=== PATIENT | male | born 1935 | race Caucasian/White ===

== ENCOUNTER → 2018-01-06 | Outpatient (CLI) | payer MEDICARE, BC | END | disposition home or self-care (01) | LOC: LABWHC1 11:06 | PROVIDERS: ATTEND Urology | DX: C61 Malignant neoplasm of prostate (principal); R97.20 Elevated prostate specific antigen [PSA] | CPT/HCPCS: 36415; 84153 ==

== ENCOUNTER → 2018-02-28 | Outpatient (CLI) | payer MEDICARE, BC ==
[2018-02-28 10:22] LABS: Blood Urea Nitrogen 14 mg/dL (9-20)
--- NOTE | 2018-02-28 13:26 | CT ---
EXAMINATION TYPE: CT pelvis w con DATE OF EXAM: 02/28/2018 COMPARISON: None HISTORY: Elevated PSA. CT DLP: 865.6 mGycm Automated exposure control for dose reduction was used. CONTRAST: Performed with IV Contrast, patient injected with 100 mL of Isovue M300. FINDINGS: Prostate gland is heterogenous containing central zone calcifications. Prostate gland is prominent bu t nonenlarged in transverse dimension measuring 4.0 cm (upper limits of normal). No suspicious areas of hyperemia are seen within the prostate gland although there is severe limitation for evaluation of prostate cancer on CT. Seminal vesicles appear symmetric and unremarkable. No abnormal pelvic adenop athy is appreciated. Centrally fat containing epiploic appendage versus prominent lymph node is seen adjacent to the distal right ureter on series 3 image 36. There is moderate to severe right-sided hyd roureteronephrosis with no radiopaque obstructing calculus. There is also right perinephric fat stran ding partially visualized. No surrounding focal circumscribed fluid collection to suggest abscess. No left-sided hydronephrosis. There is a very small periumbilical fat filled hernia. Extensive atherosclerosis is seen of the abdom inal aorta and its branches. There is infrarenal ectasia of the abdominal aorta without aneurysmal di latation. Aorta measures up to 2.4 x 2.3 cm. There is a moderate amount retained colonic stool, somewhat limiting evaluation of the bowel. Appendi x is within normal limits. Surgical clips are seen within the right inguinal canal. Small bowel abuts the prior surgically fixated right inguinal hernial defect. Colonic diverticulosis is noted. Few sca ttered nonenlarged periaortic lymph nodes are seen. There is somewhat mottled trabecular pattern of the right iliac bone with sclerosis focally on series 7 image 42 measuring 1.8 cm. Mottled appearance extends through the entirety of the right iliac bone such as on series 7 image 45. Mild multilevel degenerative changes of the lumbar spine are present. IMPRESSION: 1. HETEROGENEITY OF THE UPPER LIMITS OF NORMAL SIZED PROSTATE GLAND WITH NO FOCAL AREA OF HYPEREMIA T O RAISE SUSPICION FOR PROSTATE CARCINOMA ALTHOUGH THERE IS INCREASED SENSITIVITY WITH MRI AND IF BIOP SY IS NOT PLANNED MRI WOULD BE RECOMMENDED. NO LOCAL PELVIC ADENOPATHY OR ABNORMAL ATTENUATION OF THE SEMINAL VESICLES. THERE IS DIFFUSE ABNORMAL BONE MARROW THROUGHOUT THE RIGHT HEMIPELVIS ALTHOUGH THE RE IS LOW INDEX OF SUSPICION FOR METASTASIS FINDINGS SHOULD BE CORRELATED WITH NUCLEAR MEDICINE SCINT IGRAPHY. 2. MODERATE TO SEVERE RIGHT-SIDED HYDROURETERONEPHROSIS WITH RIGHT-SIDED PERINEPHRIC FAT STRANDING AN D NO OBSTRUCTING CALCULUS. CONSIDERATION IS FOR UNILATERAL URETEROVESICULAR REFLUX OR NONRADIOPAQUE O BSTRUCTING CALCULUS. URETER IS DILATED TO THE URETEROVESICULAR JUNCTION WITH NO STRICTURE IDENTIFIED.
--- NOTE | 2018-02-28 14:13 | NM ---
EXAMINATION TYPE: NM bone scan whole body DATE OF EXAM: 02/28/2018 COMPARISON: CT pelvis same date HISTORY: Prostate cancer Delayed whole-body scanning was performed following the injection of 24.0 mCi Tc 99m MDP. Images acq uired 3 hours post injection. FINDINGS: Mild increased uptake to the right hemipelvis as compared to the left is noted, there is associated c oarsened trabecular pattern on CT involving the ilium and ischium. Small focus of uptake is thought t o correspond to the sclerotic focus in the right pelvis is noted on CT. Uptake within the spine at th e costovertebral angles of multiple ribs in the midthoracic spine as well as the lower lumbar spine, shoulders is felt likely to be degenerative. Patient shows hydronephrosis on the right with hydrouret er, retained radio pharmaceutical. Uptake within the wrists and knees, feet is likely degenerative. P unctate focus of uptake seen in the posterior left hemipelvis may be due to some focal sclerosis at t he sacroiliac joint but is indeterminate. Large amount of retained urine present in the bladder. IMPRESSION: Findings in the right hemipelvis could be indicative of Paget's disease. Cannot exclude metastasis on the basis of this exam as described however. Right-sided hydronephrosis. There is urinary retention likely due to chronic outlet obstruction bladder.
== END | disposition home or self-care (01) ==
LOC: RADNMMAIN 09:32
PROVIDERS: ATTEND Urology
DX: C61 Malignant neoplasm of prostate (principal); N13.30 Unspecified hydronephrosis; N28.82 Megaloureter
CPT/HCPCS: 82565; 84520; 72193; 78306; 36415; A9503; Q9967

== ENCOUNTER → 2018-03-14 | Outpatient (CLI) | payer MEDICARE, BC ==
--- NOTE | 2018-03-14 16:05 | US ---
EXAMINATION TYPE: US kidneys/renal and bladder DATE OF EXAM: 03/14/2018 COMPARISON: CT CLINICAL HISTORY: Hydronephrosis R93.4. H/O [place] right side, recently diagnosed with prostate CA EXAM MEASUREMENTS: Right Kidney: 11.4 x 5.1 x 5.4 cm Left Kidney: 12.4 x 6.2 x 5.4 cm Right Kidney: No evidence of hydro, trace 2 mm greatest thickness perinephric fluid seen adjacent to kidney lower pole Left Kidney: Appeared wnl Bladder: Pt has a cath in place, anterior wall thickened There is no evidence for hydronephrosis at this point in time. No nephrolithiasis is seen. No russell s are identified. The urinary bladder is anechoic. Bilateral ureteral jets are seen. IMPRESSION: 1. No evidence of hydronephrosis of either kidney. There is a trace amount of perinephric fluid seen on the right measuring 2 mm in greatest thickness. 3. Anterior urinary bladder wall thickening, partially related to incomplete distention as there is p lacement of a Mata catheter although correlation with urinalysis is recommended to exclude superimpo sed cystitis.
== END ==
LOC: RADUSWWP 15:27
PROVIDERS: ATTEND Urology
DX: Z09 Encounter for follow-up examination after completed treatment for conditions other than malignant neoplasm (principal); N32.89 Other specified disorders of bladder
CPT/HCPCS: 76770

== ENCOUNTER → 2018-04-28 | Outpatient (CLI) | payer MEDICARE, BC | END | disposition home or self-care (01) | LOC: LABWHC1 11:05 | PROVIDERS: ATTEND Urology | DX: C61 Malignant neoplasm of prostate (principal) | CPT/HCPCS: 36415; 84153; 84403 ==

== ENCOUNTER → 2018-06-10 | Outpatient (CLI) | payer MEDICARE, BC | LOC: LABWHC1 09:59 | PROVIDERS: ATTEND Urology | DX: C61 Malignant neoplasm of prostate (principal) | CPT/HCPCS: 36415; 84153 ==

== ENCOUNTER → 2018-08-26 | Outpatient (CLI) | payer MEDICARE, BC | END | disposition home or self-care (01) | LOC: LABWHC1 08:52 | PROVIDERS: ATTEND Urology | DX: C61 Malignant neoplasm of prostate (principal) | CPT/HCPCS: 36415; 84153 ==

== ENCOUNTER → 2018-12-16 | Outpatient (CLI) | payer MEDICARE, BC | END | disposition home or self-care (01) | LOC: LABWHC1 10:52 | PROVIDERS: ATTEND Urology | DX: C61 Malignant neoplasm of prostate (principal) | CPT/HCPCS: 36415; 82310; 84153; 84403 ==

== ENCOUNTER 2018-12-23 17:20 | Observation (INO) | payer MEDICARE, BC ==
[2018-12-23] MEDS ORDERED: SODIUM CHLORIDE 0.9% 1,000 ML IV STA (17:58)
--- NOTE | 2018-12-23 18:02 | ED ---
Weakness HPI - General Chief complaint: Weakness Stated complaint: WEAKNESS, NECK AND SHOULDER PAIN Time Seen by Provider: 12/23/18 17:42 Source: patient, family, RN notes reviewed, old records reviewed Mode of arrival: wheelchair Limitations: no limitations - History of Present Illness Initial comments: This is a 83-year-old male the ER for evaluation presents today for evaluation regards to weakness. Patient has severe weakness diffuse body weakness. Patient does suffer from prostate cancer and multiple significant therapies for a few months now. Is occasionally chills and fevers with these locations. Patient states he does not feel well difficulty with ventilation difficulty moving around difficulty walking. Denying any significant pain no headache chest pain or shortness breath no bowel pain does think he's had some blood in his stool. His breath 4 days. No blood thinners. MD Complaint: generalized weakness, lack of energy, difficulty walking -: hour(s) Location: generalized Severity: moderate Severity scale (1-10): 6 Consistency: constant Improves with: none Worsens with: movement Context: recent illness Associated Symptoms: dark stools, loss of appetite - Related Data Home Medications Medication Instructions Recorded Confirmed Abiraterone Acetate [Zytiga] 1,000 mg PO DAILY 12/23/18 12/23/18 Aspirin EC [Ecotrin Low Dose] 81 mg PO HS 12/23/18 12/23/18 Calcium Carbonate/Vitamin D3 1 tab PO HS 12/23/18 12/23/18 [Calcium 600-Vit D3 200 Tablet] Cyanocobalamin (Vitamin B-12) 1,000 mcg PO DAILY 12/23/18 12/23/18 [Vitamin B-12] Mesal/Menth/Camph/[place]iber[place] Fir 1 spray EA NOSTRIL DAILY PRN 12/23/18 12/23/18 [Vicks Vapoinhaler] Tamsulosin HCl [Flomax] 0.4 mg PO HS 12/23/18 12/23/18 Vit C/E/Zn/Coppr/Lutein/Zeaxan 1 cap PO DAILY 12/23/18 12/23/18 [Preservision Areds 2 Softgel] predniSONE 5 mg PO DAILY 12/23/18 12/23/18 Allergies Allergy/AdvReac Type Severity Reaction Status Date / Time No Known Allergies Allergy Verified 12/23/18 17:48 Review of Systems ROS Statement: Those systems with pertinent positive or pertinent negative responses have been documented in the HPI. ROS Other: All systems not noted in ROS Statement are negative. Past Medical History Additional Past Medical History / Comment(s): prostate CA (current inoperable), colon/rectal CA (1985) History of Any Multi-Drug Resistant Organisms: None Reported Past Surgical History: Hernia Repair Past Psychological History: No Psychological Hx Reported Smoking Status: Never smoker Past Alcohol Use History: Daily Past Drug Use History: None Reported General Exam Limitations: no limitations General appearance: alert, in no apparent distress Head exam: Present: atraumatic, normocephalic, normal inspection Eye exam: Present: normal appearance, EOMI. Absent: scleral icterus, conjunctival injection, periorbital swelling ENT exam: Present: normal exam, mucous membranes moist Neck exam: Present: normal inspection. Absent: tenderness, meningismus, lymphadenopathy Respiratory exam: Present: normal lung sounds bilaterally. Absent: respiratory distress, wheezes, rales, rhonchi, stridor Cardiovascular Exam: Present: regular rate, normal rhythm, normal heart sounds. Absent: systolic murmur, diastolic murmur, rubs, gallop, clicks GI/Abdominal exam: Present: soft, normal bowel sounds. Absent: distended, tenderness, guarding, rebound, rigid Extremities exam: Present: normal inspection, full ROM, normal capillary refill. Absent: tenderness, pedal edema, joint swelling, calf tenderness Back exam: Present: normal inspection Neurological exam: Present: alert, oriented X3, CN II-XII intact Psychiatric exam: Present: normal affect, normal mood Skin exam: Present: warm, dry, intact, normal color. Absent: rash Course Vital Signs 12/23/18 17:22 Temperature 97.9 F Pulse Rate 74 Respiratory 18 Rate Blood Pressure 112/68 O2 Sat by Pulse 98 Oximetry - Reevaluation(s) Reevaluation #1: 12/23/18 18:02 Medical record is reviewed Reevaluation #2: 12/23/18 20:02 Patient with no real significant improvement still states he feels very weak - Consultations Consultation #1: Spoke with Dr. Bundy who recommends getting CT and D-dimer test on patient, will add those tests, agreeable for admission EKG Findings - EKG Comments: EKG Findings:: EKG shows A. fib rate of 69, QRS 104, QTC 450 Medical Decision Making - Medical Decision Making 83 male the ER for evaluation significant weakness found of urinary tract infection dehydration will admit for treatment of UTI, dehydration. - Lab Data Result diagrams: 12/23/18 18:26 12/23/18 18:26 Lab Results 12/23/18 12/23/18 12/23/18 Range/Units 18:26 18:26 18:26 WBC 6.8 (3.8-10.6) k/uL RBC 4.05 L (4.30-5.90) m/uL Hgb 13.0 (13.0-17.5) gm/dL Hct 36.9 L (39.0-53.0) % MCV 91.2 (80.0-100.0) fL MCH 32.1 (25.0-35.0) pg MCHC 35.2 (31.0-37.0) g/dL RDW 12.9 (11.5-15.5) % Plt Count 248 (150-450) k/uL Neutrophils % 61 % Lymphocytes % 23 % Monocytes % 9 % Eosinophils % 3 % Basophils % 2 % Neutrophils # 4.2 (1.3-7.7) k/uL Lymphocytes # 1.5 (1.0-4.8) k/uL Monocytes # 0.6 (0-1.0) k/uL Eosinophils # 0.2 (0-0.7) k/uL Basophils # 0.1 (0-0.2) k/uL PT (9.0-12.0) sec INR (<1.2) APTT (22.0-30.0) sec D-Dimer (<0.60) mg/L FEU Sodium 137 (137-145) mmol/L Potassium 3.8 (3.5-5.1) mmol/L Chloride 105 (98-107) mmol/L Carbon Dioxide 18 L (22-30) mmol/L Anion Gap 14 mmol/L BUN 21 H (9-20) mg/dL Creatinine 0.71 (0.66-1.25) mg/dL Est GFR (CKD-EPI)AfAm >90 (>60 ml/min/1.73 sqM) Est GFR (CKD-EPI)NonAf 88 (>60 ml/min/1.73 sqM) Glucose 128 H (74-99) mg/dL Plasma Lactic Acid Brian (0.7-2.0) mmol/L Calcium 9.6 (8.4-10.2) mg/dL Phosphorus 3.5 (2.5-4.5) mg/dL Magnesium 2.1 (1.6-2.3) mg/dL Total Bilirubin 0.6 (0.2-1.3) mg/dL AST 32 (17-59) U/L ALT 25 (21-72) U/L Alkaline Phosphatase 88 (38-126) U/L Creatine Kinase 73 (55-170) U/L Troponin I (0.000-0.034) ng/mL NT-Pro-B Natriuret Pep 266 pg/mL Total Protein 7.0 (6.3-8.2) g/dL Albumin 4.3 (3.5-5.0) g/dL TSH 1.800 (0.465-4.680) mIU/L Urine Color Urine Appearance (Clear) Urine pH (5.0-8.0) Ur Specific Bath (1.001-1.035) Urine Protein (Negative) Urine Glucose (UA) (Negative) Urine Ketones (Negative) Urine Blood (Negative) Urine Nitrite (Negative) Urine Bilirubin (Negative) Urine Urobilinogen (<2.0) mg/dL Ur Leukocyte Esterase (Negative) Urine RBC (0-5) /hpf Urine WBC (0-5) /hpf Ur Squamous Epith Cells (0-4) /hpf Urine Bacteria (None) /hpf Urine Mucus (None) /hpf 12/23/18 12/23/18 12/23/18 Range/Units 18:26 18:26 18:26 WBC (3.8-10.6) k/uL RBC (4.30-5.90) m/uL Hgb (13.0-17.5) gm/dL Hct (39.0-53.0) % MCV (80.0-100.0) fL MCH (25.0-35.0) pg MCHC (31.0-37.0) g/dL RDW (11.5-15.5) % Plt Count (150-450) k/uL Neutrophils % % Lymphocytes % % Monocytes % % Eosinophils % % Basophils % % Neutrophils # (1.3-7.7) k/uL Lymphocytes # (1.0-4.8) k/uL Monocytes # (0-1.0) k/uL Eosinophils # (0-0.7) k/uL Basophils # (0-0.2) k/uL PT 10.3 (9.0-12.0) sec INR 1.0 (<1.2) APTT 23.4 (22.0-30.0) sec D-Dimer 0.32 (<0.60) mg/L FEU Sodium (137-145) mmol/L Potassium (3.5-5.1) mmol/L Chloride (98-107) mmol/L Carbon Dioxide (22-30) mmol/L Anion Gap mmol/L BUN (9-20) mg/dL Creatinine (0.66-1.25) mg/dL Est GFR (CKD-EPI)AfAm (>60 ml/min/1.73 sqM) Est GFR (CKD-EPI)NonAf (>60 ml/min/1.73 sqM) Glucose (74-99) mg/dL Plasma Lactic Acid Brian (0.7-2.0) mmol/L Calcium (8.4-10.2) mg/dL Phosphorus (2.5-4.5) mg/dL Magnesium (1.6-2.3) mg/dL Total Bilirubin (0.2-1.3) mg/dL AST (17-59) U/L ALT (21-72) U/L Alkaline Phosphatase (38-126) U/L Creatine Kinase (55-170) U/L Troponin I <0.012 (0.000-0.034) ng/mL NT-Pro-B Natriuret Pep pg/mL Total Protein (6.3-8.2) g/dL Albumin (3.5-5.0) g/dL TSH (0.465-4.680) mIU/L Urine Color Urine Appearance (Clear) Urine pH (5.0-8.0) Ur Specific Bath (1.001-1.035) Urine Protein (Negative) Urine Glucose (UA) (Negative) Urine Ketones (Negative) Urine Blood (Negative) Urine Nitrite (Negative) Urine Bilirubin (Negative) Urine Urobilinogen (<2.0) mg/dL Ur Leukocyte Esterase (Negative) Urine RBC (0-5) /hpf Urine WBC (0-5) /hpf Ur Squamous Epith Cells (0-4) /hpf Urine Bacteria (None) /hpf Urine Mucus (None) /hpf 12/23/18 12/23/18 Range/Units 18:30 19:32 WBC (3.8-10.6) k/uL RBC (4.30-5.90) m/uL Hgb (13.0-17.5) gm/dL Hct (39.0-53.0) % MCV (80.0-100.0) fL MCH (25.0-35.0) pg MCHC (31.0-37.0) g/dL RDW (11.5-15.5) % Plt Count (150-450) k/uL Neutrophils % % Lymphocytes % % Monocytes % % Eosinophils % % Basophils % % Neutrophils # (1.3-7.7) k/uL Lymphocytes # (1.0-4.8) k/uL Monocytes # (0-1.0) k/uL Eosinophils # (0-0.7) k/uL Basophils # (0-0.2) k/uL PT (9.0-12.0) sec INR (<1.2) APTT (22.0-30.0) sec D-Dimer (<0.60) mg/L FEU Sodium (137-145) mmol/L Potassium (3.5-5.1) mmol/L Chloride (98-107) mmol/L Carbon Dioxide (22-30) mmol/L Anion Gap mmol/L BUN (9-20) mg/dL Creatinine (0.66-1.25) mg/dL Est GFR (CKD-EPI)AfAm (>60 ml/min/1.73 sqM) Est GFR (CKD-EPI)NonAf (>60 ml/min/1.73 sqM) Glucose (74-99) mg/dL Plasma Lactic Acid Brian 2.0 (0.7-2.0) mmol/L Calcium (8.4-10.2) mg/dL Phosphorus (2.5-4.5) mg/dL Magnesium (1.6-2.3) mg/dL Total Bilirubin (0.2-1.3) mg/dL AST (17-59) U/L ALT (21-72) U/L Alkaline Phosphatase (38-126) U/L Creatine Kinase (55-170) U/L Troponin I (0.000-0.034) ng/mL NT-Pro-B Natriuret Pep pg/mL Total Protein (6.3-8.2) g/dL Albumin (3.5-5.0) g/dL TSH (0.465-4.680) mIU/L Urine Color Yellow Urine Appearance Clear (Clear) Urine pH 6.0 (5.0-8.0) Ur Specific Bath 1.012 (1.001-1.035) Urine Protein Negative (Negative) Urine Glucose (UA) Negative (Negative) Urine Ketones Negative (Negative) Urine Blood Negative (Negative) Urine Nitrite Positive (Negative) Urine Bilirubin Negative (Negative) Urine Urobilinogen <2.0 (<2.0) mg/dL Ur Leukocyte Esterase Large H (Negative) Urine RBC <1 (0-5) /hpf Urine WBC 53 H (0-5) /hpf Ur Squamous Epith Cells <1 (0-4) /hpf Urine Bacteria Many H (None) /hpf Urine Mucus Rare H (None) /hpf - Radiology Data Radiology results: report reviewed (Chest x-rays negative for acute disease), image reviewed Disposition Clinical Impression: UTI (urinary tract infection), Weakness, Dehydration Disposition: ADMITTED IP TO THIS [facility] Condition: Good Is patient prescribed a controlled substance at d/c from ED?: No Referrals: Germaine Shirley MD [Primary Care Provider] - 1-2 days
[2018-12-23 18:40] LABS: Basophils # (A) 0.1 k/uL (0-0.2); Basophils % (A) 2 %; Eosinophils # (A) 0.2 k/uL (0-0.7); Eosinophils % (A) 3 %; HCT 36.9 % (39.0-53.0); Lymphocytes # (A) 1.5 k/uL (1.0-4.8); Lymphocytes % (A) 23 %; MCH 32.1 pg (25.0-35.0); MCHC 35.2 g/dL (31.0-37.0); MCV 91.2 fL (80.0-100.0); Mean Platelet Volume 6.6; Monocytes # (A) 0.6 k/uL (0-1.0); Monocytes % (A) 9 %; Neutrophils # (A) 4.2 k/uL (1.3-7.7); Neutrophils % (A) 61 %; Platelet Count 248 k/uL (150-450); RBC 4.05 m/uL (4.30-5.90); RDW 12.9 % (11.5-15.5); WBC 6.8 k/uL (3.8-10.6)
[2018-12-23 18:52] LABS: Partial Thromboplastin Time 23.4 sec (22.0-30.0); Prothrombin Time 10.3 sec (9.0-12.0)
--- NOTE | 2018-12-23 19:10 | XR ---
EXAMINATION TYPE: XR chest 2V DATE OF EXAM: 12/23/2018 COMPARISON: NONE HISTORY: Neck pain weakness TECHNIQUE: Frontal and lateral views of the chest are obtained. FINDINGS: Heart and mediastinum are within normal limits. There is small linear density at the left lung base. The other lung vega are clear. There are chest leads. There are no hilar masses. The bon y thorax appears intact. IMPRESSION: Minimal subsegmental atelectasis at the left lung base. Otherwise negative exam.
[2018-12-23 19:28] LABS: ALT 25 U/L (21-72); AST 32 U/L (17-59); African American GFR (CKD) >90 (>60 ml/min/1.73 sqM); Albumin 4.3 g/dL (3.5-5.0); Alkaline Phosphatase 88 U/L (38-126); Anion Gap 14 mmol/L; Blood Urea Nitrogen 21 mg/dL (9-20); Calcium 9.6 mg/dL (8.4-10.2); Carbon Dioxide 18 mmol/L (22-30); Chloride 105 mmol/L (98-107); Creatine Kinase 73 U/L (55-170); Glucose 128 mg/dL (74-99); Magnesium 2.1 mg/dL (1.6-2.3); Phosphorus 3.5 mg/dL (2.5-4.5); Potassium 3.8 mmol/L (3.5-5.1); Sodium 137 mmol/L (137-145); Total Bilirubin 0.6 mg/dL (0.2-1.3)
[2018-12-23 19:42] LABS: Appearance,Urine Clear (Clear); Bacteria,Urine Many /hpf; Bilirubin,Urine Negative (Negative); Blood,Urine Negative (Negative); Color,Urine Yellow; Glucose,Urine (UA) Negative (Negative); Ketones,Urine Negative (Negative); Leukocyte Esterase,Urine Large (Negative); Mucus,Urine Rare /hpf; Nitrite,Urine Positive (Negative); Protein,Urine Negative (Negative); RBC,Urine <1 /hpf (0-5); Specific Gravity,Urine 1.012 (1.001-1.035); Squamous Epithelial Cell,Urine <1 /hpf (0-4); Urobilinogen,Urine <2.0 mg/dL (<2.0)
--- NOTE | 2018-12-23 20:17 | CT ---
EXAMINATION TYPE: CT abdomen pelvis w con DATE OF EXAM: 12/23/2018 COMPARISON: None HISTORY: chest pain, pain between shoulders, near syncopal episode. hx of prostate ca. CT DLP: 1358.1 mGycm Automated exposure control for dose reduction was used. TECHNIQUE: Helical acquisition of images was performed from the lung bases through the pelvis. CONTRAST: Performed without Oral Contrast and with IV Contrast, patient injected with 100 mL of Isovue 370. FINDINGS: There is patchy atelectasis at the lung bases. Heart is slightly enlarged. There are multiple small hepatic cysts that measure up to 1.5 cm. Bile ducts are not dilated. Gallbla dder appears normal. Spleen appears normal. Stomach has normal size and contour. There is no evidence of pancreatic mass. There is no adrenal mass. Kidneys show satisfactory contrast opacification. There is no hydronephrosi s. There is no retroperitoneal adenopathy. Abdominal aorta is atheromatous. There is small umbilical hernia that contains fat. Bladder distends smoothly. There is no inguinal hernia. There is multiple sigmoid diverticula. There is no sign of diverticuliti s. Appendix appears normal. There is no ascites. There is no free air. There is spondylotic changes i n the lumbar spine. Bony pelvis is intact. There is 1.5 cm sclerotic focus in the left ilium and left side of the sacrum. There is 1 cm sclerotic focus right iliac bone. There are multiple small osteobl astic areas in the visualized thoracic and lumbar spine. There is left-sided prostatic calcification. There are surgical clips in the right inguinal region. IMPRESSION: INTERSTITIAL BASILAR PULMONARY INFILTRATES COULD RELATE TO PULMONARY FIBROSIS. MILD CARDIOMEGALY. OSTEOBLASTIC CHANGES IN THE BONY PELVIS AND LUMBAR SPINE APPEAR NEW COMPARED TO OLD PELVIS CT SCAN OF 02/28/2018 AND SUGGESTIVE OF METASTATIC DISEASE. SIGMOID DIVERTICULOSIS WITHOUT DIVERTICULITIS. THERE IS CLEARING OF THE RIGHT SIDE HYDRONEPHROSIS COM PARED TO OLD PELVIS CT SCAN.
--- NOTE | 2018-12-23 20:21 | CT ---
EXAMINATION TYPE: CT angio chest DATE OF EXAM: 12/23/2018 8:08 PM COMPARISON: None HISTORY: chest pain, pain between shoulders, near syncopal episode. hx of prostate ca. CT DLP: 576 mGycm Automated exposure control for dose reduction was used. CONTRAST: CTA scan of the thorax is performed with IV Contrast, patient injected with 100 mL of Isovue 370, pul monary embolism protocol. . There are 3-D post processed images. FINDINGS: There is coarse interstitial density at the lung bases. Heart is enlarged. There is no pleural effusi on. There is no evidence of a pulmonary mass. Thoracic aorta is atheromatous. There is no aneurysm or dissection. There are a few paratracheal and bronchial lymph nodes that measure less than 1 cm. I see no filling defects in the palmar he arteries. There is hypertrophic spurring in the thoracic sp ine. There is 1.5 cm osteoblastic focus in the L1 anterior vertebral body. There is 5 mm blastic focu s in T10 vertebra. There is 1 cm blastic focus in the T6 vertebral body. There is 6 mm blastic focus left humeral head. IMPRESSION: NO EVIDENCE OF PULMONARY EMBOLISM. MILD FIBROTIC CHANGES AT THE LUNG BASES. MILD CARDIOMEGALY. OSTEOBLASTIC CHANGES IN THE THORACIC SPINE SUGGESTIVE OF METASTATIC DISEASE.
[2018-12-23] MEDS ORDERED: [UNRECOGNIZED DRUG - OTHER] EA NOSTRIL PRN (20:33)
[2018-12-23] MEDS ORDERED: TAMSULOSIN 0.4 MG CAP.ER.24H PO SCH (22:00)
[2018-12-23] MEDS ORDERED: CALCIUM CARB-VIT D 500MG-200UN 1 EACH TAB PO SCH (22:00)
--- NOTE | 2018-12-23 22:09 | HP ---
HISTORY AND PHYSICAL DATE OF SERVICE: 12/23/2018 CHIEF COMPLAINT: Weakness and hot flashes. HISTORY OF PRESENT ILLNESS: This 83-year-old gentleman with a past medical history of multiple medical problems including prostate cancer, history of colorectal cancer history and history of hernia repair, being followed by Dr. Germaine Shirley in the outpatient setting also receiving Zytiga as an outpatient. The patient today while at home had a feeling of flushing, hot flashes and severe weakness. Patient unable to ambulate and the patient was taken to [facility] and admitted for further evaluation and treatment. The patient reported occasional chills and rigors. Otherwise, the patient also complaining of some shortness of breath. The patient is admitted for further evaluation and treatment. Initial evaluation did not show much of an abnormality otherwise except some UTI. Patient being closely monitored for possible UTI. Patient admitted for further evaluation and treatment. There is no history of fever, rigors, chills at this time. PAST MEDICAL HISTORY: History of prostate cancer, colorectal cancer history. MEDICATIONS: Prior to admission include home medications are: 1. Vitamin E. 2. Zinc. 3. Copper. 4. Lutein 1 p.o. daily. 5. Flomax 0.4 q.h.s. 6. Vitamin B12 1000 mcg p.o. daily. 7. Calcium with vitamin D 1 p.o. q.h.s. 8. Ecotrin 81 mg p.o. q.h.s. 9. Vicks 1 spray daily p.r.n. 10.Prednisone 5 mg p.o. daily. 11.Zytiga 1000 mg p.o. daily. ALLERGIES: None. FAMILY HISTORY: No history of heart disease or strokes in the family. SOCIAL HISTORY: No history of smoking. Occasional alcohol intake. REVIEW OF SYSTEMS: ENT: No diminished vision. No diminished hearing. Cardiovascular: No angina or palpitations. Respirations: No cough or hemoptysis. GI no nausea or vomiting. no dysuria or dysuria. Nervous system: No numbness or weakness. Allergy/Immunology: No asthma or hayfever. MUSCULOSKELETAL as mentioned earlier. ENDOCRINE: No history of diabetes or hypothyroidism. CONSTITUTIONAL: As mentioned earlier. DERMATOLOGY: Negative. RHEUMATOLOGY: Negative. HEMATOLOGY/ONCOLOGY: As mentioned earlier. PSYCHIATRY: As mentioned earlier. PHYSICAL EXAMINATION: Alert and oriented x3. The pulse is 74, blood pressure 112/68, respiration 18, temperature 97.9, pulse ox 98% on room air. HEENT: Conjunctivae normal. NECK: No JVD. CARDIOVASCULAR: S1, S2 muffled. RESPIRATORY: Breath sounds diminished in the bases. No rhonchi. No crackles. ABDOMEN: Soft, nontender. No mass palpable. LEGS: No edema. NERVOUS SYSTEM: Higher functions as mentioned earlier. Moves all four limbs. No focal motor or sensory deficits. LYMPHATICS: No lymph nodes palpable in the neck, axillae or groin. SKIN: No ulcer. No rash. No bleeding. JOINTS: No active deforming arthropathy. LABS: WBC 6.8, hemoglobin 13, sodium 137, potassium 3.8. Glucose 128. ASSESSMENT: 1. Weakness, hot flashes for evaluation, possibly medication induced. 2. Possible urinary tract infection. 3. Dehydration, present on admission. 4. History of prostate cancer, inoperable. 5. History of colorectal cancer. RECOMMENDATIONS AND DISCUSSION: This 83-year-old gentleman presented with multiple medical issues, at this time, I recommend continue the current medications, management and symptomatic treatment. Resume the home medications. Otherwise, I would recommend D-dimer and a spiral chest CT also. We will continue to monitor. Further recommendations to follow. A copy of dictation being forwarded to Dr. Germaine Shirley who is the primary physician. MMKIESHA / SOPHIA: [id number] /
[2018-12-23 22:58] LABS: Glucose,Whole Blood 103 mg/dL (75-99)
[2018-12-23 23:30] VITALS: BMI 29.5
[2018-12-23] MEDS: INSULIN ASPART (NovoLOG) 100 UNIT/ML VIAL SQ SCH (23:38)
[2018-12-23] MEDS: ASPIRIN 81 MG PO SCH (23:59)
[2018-12-24 05:52] LABS: Glucose,Whole Blood 147 mg/dL (75-99)
[2018-12-24 06:20] LABS: Basophils % (A) 1 %; Eosinophils # (A) 0.1 k/uL (0-0.7); Eosinophils % (A) 1 %; HCT 38.9 % (39.0-53.0); HGB 13.1 gm/dL (13.0-17.5); Lymphocytes % (A) 13 %; MCH 31.3 pg (25.0-35.0); MCHC 33.6 g/dL (31.0-37.0); MCV 93.4 fL (80.0-100.0); Mean Platelet Volume 6.7; Monocytes # (A) 0.3 k/uL (0-1.0); Monocytes % (A) 4 %; Neutrophils # (A) 6.2 k/uL (1.3-7.7); Neutrophils % (A) 81 %; Platelet Count 248 k/uL (150-450); RBC 4.17 m/uL (4.30-5.90); RDW 13.1 % (11.5-15.5); WBC 7.7 k/uL (3.8-10.6)
[2018-12-24 06:35] LABS: African American GFR (CKD) >90 (>60 ml/min/1.73 sqM); Anion Gap 8 mmol/L; Blood Urea Nitrogen 17 mg/dL (9-20); Calcium 9.2 mg/dL (8.4-10.2); Carbon Dioxide 25 mmol/L (22-30); Chloride 108 mmol/L (98-107); Glucose 143 mg/dL (74-99); Potassium 5.3 mmol/L (3.5-5.1); Sodium 141 mmol/L (137-145)
[2018-12-24] MEDS: INSULIN ASPART (NovoLOG) 100 UNIT/ML VIAL SQ SCH ×4 (06:45→21:07)
[2018-12-24] MEDS ORDERED: ABIRATERONE ACETATE 1000 MG PO SCH (09:00)
[2018-12-24] MEDS: VIT A,C & E-LUTEIN-MINERALS 1 EACH TAB PO SCH (09:30)
[2018-12-24] MEDS: CALCIUM CARB-VIT D 500MG-200UN 1 EACH TAB PO SCH ×3 (09:30→21:07)
[2018-12-24] MEDS: TAMSULOSIN 0.4 MG CAP.ER.24H PO SCH (09:30)
[2018-12-24] MEDS: HYDROCORTISONE SUCCINATE 100 MG/2 ML VIAL IV SCH ×4 (09:31→23:25)
[2018-12-24] MEDS: CYANOCOBALAMIN 500 MCG TAB PO SCH (09:31)
[2018-12-24 12:21] LABS: Glucose,Whole Blood 100 mg/dL (75-99)
[2018-12-24] MEDS: ABIRATERONE ACETATE 1000 MG PO SCH ×2 (12:47→17:08)
--- NOTE | 2018-12-24 13:29 | P.CRDCN ---
History of Present Illness Consult date: 12/24/18 Requesting physician: Rodney Bundy Consult reason: atrial fibrillation Chief complaint: Sudden onset of weakness History of present illness: This is an 83-year-old gentleman with history of prostate cancer for which she is currently taking chemotherapy, he also has history of hypertension. He presented to the hospital on this occasion with symptoms of fairly sudden onset of extreme weakness. He states that he was walking to the refrigerator, had what felt like chills even though he was quite warm, and was unable to walk because of the extreme weakness that hit him all of a sudden. Patient also had an episode subsequent to that of some discomfort in his upper back area. Admit david to the hospital, subsequently cardiology consultation was requested because his initial EKG showed atrial fibrillation. Chest x-ray showed minimal subsegmental atelectasis at the left lung base, otherwise negative. A CAT scan of the abdomen and pelvis was performed which revealed interstitial bibasilar pulmonary infiltrates, osteoblastic changes in the bony pelvis and lumbar spine which appear to be new as compared with prior CT suggestive of metastatic disease. Sigmoid diverticulosis without any evidence of diverticulitis. CTA of the chest no evidence of pulmonary embolism, mild fibrotic changes at the lung bases. Osteoblastic changes in the thoracic spine suggestive of metastatic disease. Initial EKG on presentation here showed atrial fibrillation with a controlled ventricular response, subsequently patient converted to normal sinus rhythm and remains in a normal sinus rhythm this morning. Blood pressure 136/60 with a heart rate in 70s, 96% on room air. White blood cell count 7.7, hemoglobin 13.1, platelet count 248. D-dimer 0.3. Sodium 141, potassium 5.3, BUN 17 and creatinine 0.6. Troponin 0.012. TSH 1.8. UA showed evidence of leukocyte Estrace, large amount, urine wbc's 53, many bacteria. At the time of my examination this morning, the patient feels well, denies any palpitations, no difficulty in breathing. He is actually much stronger and he was on his presentation here. Past Medical History Additional Past Medical History / Comment(s): prostate CA (current inoperable), colon/rectal CA (1984) History of Any Multi-Drug Resistant Organisms: None Reported Past Surgical History: Hernia Repair Additional Past Surgical History / Comment(s): colon/rectal surgery 1984, 2 polps removed Past Anesthesia/Blood Transfusion Reactions: No Reported Reaction Past Psychological History: No Psychological Hx Reported Smoking Status: Former smoker Past Alcohol Use History: Daily Additional Past Alcohol Use History / Comment(s): pt states he drinks 3-4 beers daily Past Drug Use History: None Reported - Past Family History Father Family Medical History: Myocardial Infarction ([place]) Mother Family Medical History: CVA/TIA Medications and Allergies Home Medications Medication Instructions Recorded Confirmed Type Abiraterone Acetate [Zytiga] 1,000 mg PO DAILY 12/23/18 12/23/18 History Aspirin EC [Ecotrin Low Dose] 81 mg PO HS 12/23/18 12/23/18 History Calcium Carbonate/Vitamin D3 1 tab PO BID 12/23/18 12/23/18 History [Calcium 600-Vit D3 200 Tablet] Cyanocobalamin (Vitamin B-12) 1,000 mcg PO DAILY 12/23/18 12/23/18 History [Vitamin B-12] Mesal/Menth/Camph/Siberian Fir 1 spray EA NOSTRIL DAILY PRN 12/23/18 12/23/18 History [Vicks Vapoinhaler] Tamsulosin HCl [Flomax] 0.4 mg PO DAILY 12/23/18 12/23/18 History Vit C/E/Zn/Coppr/Lutein/Zeaxan 1 cap PO DAILY 12/23/18 12/23/18 History [Preservision Areds 2 Softgel] predniSONE 5 mg PO DAILY 12/23/18 12/23/18 History Allergies Allergy/AdvReac Type Severity Reaction Status Date / Time No Known Allergies Allergy Verified 12/23/18 17:48 Physical Exam Vitals: Vital Signs Temp Pulse Pulse Resp BP BP Pulse Ox 12/24/18 12:00 75 16 137/67 96 12/24/18 08:00 67 16 117/62 12/24/18 04:00 97.3 F L 16 104/59 95 12/24/18 00:00 97.7 F 70 16 129/59 96 12/23/18 23:14 97.7 F 70 16 129/59 96 12/23/18 21:03 97.8 F 102 H 18 114/78 98 12/23/18 17:22 97.9 F 74 18 112/68 98 Intake and Output 12/23/18 12/24/18 12/24/18 22:59 06:59 14:59 Intake Total 480 Balance 480 Intake: Oral 480 Other: Voiding Method Toilet Toilet # Voids 2 Weight 90.718 kg 90.5 kg PHYSICAL EXAMINATION: GENERAL: 83-year-old gentleman in no acute distress at the time of my examination HEENT: Head is atraumatic, normocephalic. Pupils equal, round. Sclera anicteric. Conjunctiva are clear. Mucous membranes of the mouth are moist. Neck is supple. There is no elevated jugular venous pressure. No carotid bruit is heard. HEART EXAMINATION: Heart S1, S2 normal. No murmur or gallop heard. CHEST EXAMINATION: Lungs are clear to auscultation and precussion. No chest wall tenderness is noted on palpation or with deep breathing. ABDOMEN: Soft, nontender. Bowel sounds are heard. No organomegaly noted. EXTREMITIES: 2+ peripheral pulses with no evidence of peripheral edema and no calf tenderness noted. NEUROLOGIC patient is awake, alert and oriented 3 . . Results 12/24/18 05:38 12/24/18 05:38 Cardiac Enzymes 12/23/18 12/23/18 Range/Units 18:26 18:26 AST 32 (17-59) U/L Troponin I <0.012 (0.000-0.034) ng/mL Coagulation 12/23/18 Range/Units 18:26 PT 10.3 (9.0-12.0) sec APTT 23.4 (22.0-30.0) sec CBC 12/23/18 12/24/18 Range/Units 18:26 05:38 WBC 6.8 7.7 (3.8-10.6) k/uL RBC 4.05 L 4.17 L (4.30-5.90) m/uL Hgb 13.0 13.1 (13.0-17.5) gm/dL Hct 36.9 L 38.9 L (39.0-53.0) % Plt Count 248 248 (150-450) k/uL Comprehensive Metabolic Panel 12/23/18 12/24/18 Range/Units 18:26 05:38 Sodium 137 141 (137-145) mmol/L Potassium 3.8 5.3 H (3.5-5.1) mmol/L Chloride 105 108 H (98-107) mmol/L Carbon Dioxide 18 L 25 (22-30) mmol/L BUN 21 H 17 (9-20) mg/dL Creatinine 0.71 0.67 (0.66-1.25) mg/dL Glucose 128 H 143 H (74-99) mg/dL Calcium 9.6 9.2 (8.4-10.2) mg/dL AST 32 (17-59) U/L ALT 25 (21-72) U/L Alkaline Phosphatase 88 (38-126) U/L Total Protein 7.0 (6.3-8.2) g/dL Albumin 4.3 (3.5-5.0) g/dL Current Medications Generic Name Dose Route Start Last Admin Trade Name Freq PRN Reason Stop Dose Admin Aspirin 81 mg 12/23/18 22:00 12/23/18 23:59 Aspirin PO 81 mg HS MIGEL Administration Calcium Carbonate 1 each 12/23/18 23:45 12/24/18 09:30 Oscal 500+D PO 1 each BID MIGEL Administration Cyanocobalamin 1,000 mcg 12/24/18 09:00 12/24/18 09:31 Vitamin B-12 PO 1,000 mcg DAILY MIGEL Administration Hydrocortisone Sodium Succinate 100 mg 12/24/18 00:00 12/24/18 09:31 Solu-Cortef IV 100 mg Q8HR [facility] Administration Ceftriaxone Sodium 1 gm/ 50 mls @ 100 mls/hr 12/24/18 21:00 Sodium Chloride IVPB Q24H [facility] Insulin Aspart 0 unit 12/23/18 22:00 12/24/18 12:40 Novolog SQ Not Given ACHS [facility] Protocol Multivitamins/Minerals 1 each 12/24/18 09:00 12/24/18 09:30 Ivite PO 1 each DAILY MIGEL Administration Non-Formulary Medication 1,000 mg 12/24/18 05:00 12/24/18 12:47 Abiraterone Acetate [Zytiga] PO Not Given DAILY [facility] Tamsulosin HCl 0.4 mg 12/24/18 09:00 12/24/18 09:30 Flomax PO 0.4 mg DAILY MIGEL Administration Intake and Output 12/23/18 12/24/18 12/24/18 22:59 06:59 14:59 Intake Total 480 Balance 480 Intake: Oral 480 Other: Voiding Method Toilet Toilet # Voids 2 Weight 90.718 kg 90.5 kg 12/24/18 05:38 12/24/18 05:38 EKG Interpretations (text) Initial EKG shows atrial fibrillation with a controlled ventricular response Assessment and Plan Plan: Assessment and plan #1 sudden onset of severe weakness, likely secondary to UTI #2 episode of atrial fibrillation, paroxysmal, currently in normal sinus rhythm #3 prostate cancer with evidence of possible bone metastases #4 hypertension #5 history of colon cancer with radiation Plan We will obtain an echocardiogram with Doppler study. Patient will also need to be initiated on anticoagulation in the form of Eliquis. We will check with Dr. Carmona to confirm that initiating Eliquis along with his current medications would be acceptable. Further recommendations to follow. DNP note has been reviewed, I agree with a documented findings and plan of care. Patient was seen and examined.
--- NOTE | 2018-12-24 16:19 | PN ---
PROGRESS NOTE DATE OF SERVICE: 12/24/2018 This 83-year-old gentleman was admitted with weakness and hot flash symptoms of adrenocortical insufficiency. The patient was started on IV steroids. Patient is being closely monitored at this time. Cardiology is following the patient closely for an episode of atrial fibrillation, paroxysmal. He is currently in normal sinus rhythm. There is no history of any fever, rigor or chills at this time. Two-D echo has been ordered at this time. Cardiology is suggesting Eliquis also with urology clearance. Past medical history reviewed. REVIEW OF SYSTEMS: CARDIOVASCULAR SYSTEM: As mentioned earlier. RESPIRATORY SYSTEM: As mentioned earlier. GI: As mentioned earlier. : As mentioned earlier. NERVOUS SYSTEM: No numbness, weakness. CURRENT MEDICATIONS: Reviewed. They include: 1. Aspirin 81 mg at bedtime. 2. Os-Jj with vitamin D one p.o. b.i.d. 3. Rocephin 1 gram daily. 4. Vitamin B12 1000 mg p.o. daily. 5. Solu-Cortef 100 mg IV q.8. 6. NovoLog before meals and at bedtime. 7. I-Sana 1 daily. 8. Zytiga 1000 mg p.o. daily. 9. Flomax 0.4 daily. PHYSICAL EXAMINATION: Patient is alert and oriented x3. Pulse 75, blood pressure 137/67, respirations 16, temperature normal, pulse ox 96% on room air. HEENT: Conjunctivae normal. NECK: No jugular venous distention. CARDIOVASCULAR SYSTEM: S1, S2 muffled. RESPIRATORY SYSTEM: Breath sounds diminished at the bases. No rhonchi. No crackles. ABDOMEN: Soft, non-tender. LEGS: No edema. No swelling. NERVOUS SYSTEM: No focal deficit. LABS: Labs at this time show WBC 7.7, hemoglobin 13.1. Sodium 141, potassium 5.3. Glucose noted. ASSESSMENT: 1. Weakness, hot flashes; possible acute adrenocortical insufficiency. 2. Urinary tract infection, present on admission. 3. Dehydration, present on admission. 4. History of prostate cancer, inoperable; on treatment. 5. History of colorectal cancer. 6. Increased random blood sugar. 7. Mild hyperkalemia. RECOMMENDATIONS AND DISCUSSION: In this 83-year-old gentleman who presented with multiple complex medical issues, we will monitor the patient closely, continue the current management, continue with symptomatic treatment. Otherwise, 2D echo has been ordered. We will continue with hydrocortisone and monitor closely. Continue the empiric antibiotics. Increase ambulation. Closely follow with Urology and multiple consultants. Prognosis guarded. Further recommendations to follow. SNIAN / IJN: [id number] /
[2018-12-24 17:21] LABS: Glucose,Whole Blood 157 mg/dL (75-99)
--- NOTE | 2018-12-24 20:48 | P.GSCN ---
History of Present Illness Consult date: 12/24/18 Reason for Consult: Prostate cancer, weakness Requesting physician: Rodney Bundy History of present illness: The patient is an 83-year-old white male well known to me. He received radiation therapy for colon cancer in 1994. His PSA level jessy to 5.5 in August 2017. In October 2017, the PSA level was 4.84. However, the PSA level jessy to 6.57 in January 2018. He underwent a prostate ultrasound with biopsies, revealing diffuse poorly differentiated prostate cancer. A CT scan showed evidence of right hydroureteronephrosis. Bone scan showed abnormalities suggestive of Paget's disease. He developed urinary retention and thus performs intermittent self-catheterization. A PET/CT Axumin Prostate Scan showed evidence of bone metastases. He has been treated with androgen deprivation therapy and Zytiga. Prednisone 5 mg daily has been prescribed, to be taken in conjunction with Zytiga. His PSA level has decreased to 0.1. He is now voiding, and bladder emptying is improved. He has been advised to self catheterize only at bedtime, and he reports recent cath volumes of approximately 2 ounces. He was recently started on Xgeva. The CT scan shows blastic lesions, but he denies bone pain. Review of Systems - Constitutional Reports chills, Reports fever, Reports sweats, Reports weakness - Respiratory Reports dyspnea - Genitourinary Denies dysuria, Denies hematuria Past Medical History Additional Past Medical History / Comment(s): prostate CA (current inoperable), colon/rectal CA (1984) History of Any Multi-Drug Resistant Organisms: None Reported Past Surgical History: Hernia Repair Additional Past Surgical History / Comment(s): colon/rectal surgery 1984, 2 polps removed Past Anesthesia/Blood Transfusion Reactions: No Reported Reaction Past Psychological History: No Psychological Hx Reported Smoking Status: Former smoker Past Alcohol Use History: Daily Additional Past Alcohol Use History / Comment(s): pt states he drinks 3-4 beers daily Past Drug Use History: None Reported - Past Family History Father Family Medical History: Myocardial Infarction ([place]) Mother Family Medical History: CVA/TIA Medications and Allergies Home Medications Medication Instructions Recorded Confirmed Type Abiraterone Acetate [Zytiga] 1,000 mg PO DAILY 12/23/18 12/23/18 History Aspirin EC [Ecotrin Low Dose] 81 mg PO HS 12/23/18 12/23/18 History Calcium Carbonate/Vitamin D3 1 tab PO BID 12/23/18 12/23/18 History [Calcium 600-Vit D3 200 Tablet] Cyanocobalamin (Vitamin B-12) 1,000 mcg PO DAILY 12/23/18 12/23/18 History [Vitamin B-12] Mesal/Menth/Camph/[place] Fir 1 spray EA NOSTRIL DAILY PRN 12/23/18 12/23/18 History [Vicks Vapoinhaler] Tamsulosin HCl [Flomax] 0.4 mg PO DAILY 12/23/18 12/23/18 History Vit C/E/Zn/Coppr/Lutein/Zeaxan 1 cap PO DAILY 12/23/18 12/23/18 History [Preservision Areds 2 Softgel] predniSONE 5 mg PO DAILY 12/23/18 12/23/18 History Allergies Allergy/AdvReac Type Severity Reaction Status Date / Time No Known Allergies Allergy Verified 12/23/18 17:48 Surgical - Exam Vital Signs Temp Pulse Resp BP Pulse Ox 97.9 F 74 18 112/68 98 12/23/18 17:22 12/23/18 17:22 12/23/18 17:22 12/23/18 17:22 12/23/18 17:22 - General well developed, well nourished, no distress - Neck no masses, trachea midline - Respiratory normal respiratory effort - Abdomen Abdomen: soft, non tender, no guarding, no rigid, no rebound - Psychiatric oriented to time, oriented to person, oriented to place, speech is normal, memory intact Results - Labs 12/24/18 05:38 12/24/18 05:38 Abnormal Lab Results - Last 24 Hours (Table) 12/23/18 12/23/18 12/24/18 Range/Units 19:32 22:56 05:38 RBC 4.17 L (4.30-5.90) m/uL Hct 38.9 L (39.0-53.0) % Potassium (3.5-5.1) mmol/L Chloride (98-107) mmol/L Glucose (74-99) mg/dL POC Glucose (mg/dL) 103 H (75-99) mg/dL Ur Leukocyte Esterase Large H (Negative) Urine WBC 53 H (0-5) /hpf Urine Bacteria Many H (None) /hpf Urine Mucus Rare H (None) /hpf 12/24/18 12/24/18 12/24/18 Range/Units 05:38 05:50 12:00 RBC (4.30-5.90) m/uL Hct (39.0-53.0) % Potassium 5.3 H (3.5-5.1) mmol/L Chloride 108 H (98-107) mmol/L Glucose 143 H (74-99) mg/dL POC Glucose (mg/dL) 147 H 100 H (75-99) mg/dL Ur Leukocyte Esterase (Negative) Urine WBC (0-5) /hpf Urine Bacteria (None) /hpf Urine Mucus (None) /hpf 12/24/18 Range/Units 16:58 RBC (4.30-5.90) m/uL Hct (39.0-53.0) % Potassium (3.5-5.1) mmol/L Chloride (98-107) mmol/L Glucose (74-99) mg/dL POC Glucose (mg/dL) 157 H (75-99) mg/dL Ur Leukocyte Esterase (Negative) Urine WBC (0-5) /hpf Urine Bacteria (None) /hpf Urine Mucus (None) /hpf Microbiology - Last 24 Hours (Table) 12/23/18 19:32 Urine Culture - Preliminary Urine,Voided Diabetes panel 12/24/18 Range/Units 05:38 Sodium 141 (137-145) mmol/L Potassium 5.3 H (3.5-5.1) mmol/L Chloride 108 H (98-107) mmol/L Carbon Dioxide 25 (22-30) mmol/L BUN 17 (9-20) mg/dL Creatinine 0.67 (0.66-1.25) mg/dL Glucose 143 H (74-99) mg/dL Calcium 9.2 (8.4-10.2) mg/dL Calcium panel 12/24/18 Range/Units 05:38 Calcium 9.2 (8.4-10.2) mg/dL Pituitary panel 12/24/18 Range/Units 05:38 Sodium 141 (137-145) mmol/L Potassium 5.3 H (3.5-5.1) mmol/L Chloride 108 H (98-107) mmol/L Carbon Dioxide 25 (22-30) mmol/L BUN 17 (9-20) mg/dL Creatinine 0.67 (0.66-1.25) mg/dL Glucose 143 H (74-99) mg/dL Calcium 9.2 (8.4-10.2) mg/dL Adrenal panel 12/24/18 Range/Units 05:38 Sodium 141 (137-145) mmol/L Potassium 5.3 H (3.5-5.1) mmol/L Chloride 108 H (98-107) mmol/L Carbon Dioxide 25 (22-30) mmol/L BUN 17 (9-20) mg/dL Creatinine 0.67 (0.66-1.25) mg/dL Glucose 143 H (74-99) mg/dL Calcium 9.2 (8.4-10.2) mg/dL - Imaging CT scan - abdomen: report reviewed, image reviewed Assessment and Plan (1) Malignant neoplasm of prostate Current Visit: Yes Status: Acute Code(s): C61 - MALIGNANT NEOPLASM OF PROSTATE SNOMED Code(s): 195545596 (2) UTI (urinary tract infection) Current Visit: Yes Status: Acute Code(s): N39.0 - URINARY TRACT INFECTION, SITE NOT SPECIFIED SNOMED Code(s): 13140050 Plan: It appears that the patient's symptoms are most likely due to a combination of dehydration, UTI, and adrenal insufficiency. He reports feeling much better at this time. He will continue to receive IV antibiotics, pending the final urine culture result. The preliminary result shows gram-negative bacilli. I have suggested he stop performing intermittent self-catheterization. He is currently receiving intravenous corticosteroids. He has been taking prednisone 5 mg daily in conjunction with Zytiga, but I intend to increase this dosage to 10 mg daily. Time with Patient: Greater than 30
[2018-12-24 21:00] LABS: Glucose,Whole Blood 181 mg/dL (75-99)
[2018-12-24] MEDS: ASPIRIN 81 MG PO SCH (21:07)
[2018-12-25 06:06] LABS: Glucose,Whole Blood 130 mg/dL (75-99)
[2018-12-25] MEDS: INSULIN ASPART (NovoLOG) 100 UNIT/ML VIAL SQ SCH (06:23)
[2018-12-25 06:38] LABS: Basophils % (A) 0 %; Eosinophils % (A) 0 %; HCT 37.5 % (39.0-53.0); HGB 12.9 gm/dL (13.0-17.5); Lymphocytes # (A) 1.5 k/uL (1.0-4.8); Lymphocytes % (A) 16 %; MCH 32.3 pg (25.0-35.0); MCHC 34.5 g/dL (31.0-37.0); MCV 93.5 fL (80.0-100.0); Mean Platelet Volume 6.6; Monocytes # (A) 0.5 k/uL (0-1.0); Monocytes % (A) 6 %; Neutrophils # (A) 6.9 k/uL (1.3-7.7); Neutrophils % (A) 76 %; Platelet Count 284 k/uL (150-450); RBC 4.01 m/uL (4.30-5.90); RDW 12.9 % (11.5-15.5); WBC 9.1 k/uL (3.8-10.6)
[2018-12-25 06:53] LABS: African American GFR (CKD) >90 (>60 ml/min/1.73 sqM); Anion Gap 10 mmol/L; Blood Urea Nitrogen 14 mg/dL (9-20); Calcium 9.7 mg/dL (8.4-10.2); Carbon Dioxide 25 mmol/L (22-30); Chloride 103 mmol/L (98-107); Glucose 129 mg/dL (74-99); Potassium 4.6 mmol/L (3.5-5.1); Sodium 138 mmol/L (137-145)
[2018-12-25] MEDS: HYDROCORTISONE SUCCINATE 100 MG/2 ML VIAL IV SCH (09:13)
[2018-12-25] MEDS: VIT A,C & E-LUTEIN-MINERALS 1 EACH TAB PO SCH (09:13)
[2018-12-25] MEDS: CALCIUM CARB-VIT D 500MG-200UN 1 EACH TAB PO SCH (09:13)
[2018-12-25] MEDS: CYANOCOBALAMIN 500 MCG TAB PO SCH (09:13)
[2018-12-25] MEDS: TAMSULOSIN 0.4 MG CAP.ER.24H PO SCH (09:13)
[2018-12-25] MEDS: ABIRATERONE ACETATE 1000 MG PO SCH (09:14)
[2018-12-25 10:59] VITALS: BP 140/63; PULSE 72; RESP 16; TEMP 96.5
--- NOTE | 2018-12-25 11:04 | P.PN ---
Progress Note - Text Progress Note Date: 12/25/18 Mr. Cooper has no complaints this morning and is in fact feeling well. He hopes to go home today, and is urologically stable for discharge. The final urine culture result is pending, so he could be treated with a broad-spectrum antibiotic pending the result. I spoke with Dr. Bundy, we will prescribe corticosteroids with a tapering dose. Once his steroid dose is tapered, I intend to decrease his prednisone dosage to 10 mg daily. Mr. Cooper has an appointment to see me in the office on 12/29/2018. Please notify me if I can be of any further assistance.
--- NOTE | 2018-12-25 11:32 | ECHOF ---
Referral Reason:afib MEASUREMENTS -------- HEIGHT: 175.3 cm WEIGHT: 90.3 kg BP: 117/52 IVSd: 1.2 cm (0.6 - 1.1) LVIDd: 4.0 cm (3.9 - 5.3) LVPWd: 1.3 cm (0.6 - 1.1) IVSs: 2.1 cm LVIDs: 1.9 cm LVPWs: 1.8 cm LAESV Index (A-L): 25.91 ml/m Ao Diam: 3.6 cm (2.0 - 3.7) AV Cusp: 2.3 cm (1.5 - 2.6) MV EXCURSION: 16.074 mm (> 18.000) MV EF SLOPE: 62 mm/s (70 - 150) EPSS: 0.6 cm MV E Oswald: 0.46 m/s MV DecT: 289 ms MV A Oswald: 0.38 m/s MV E/A Ratio: 1.23 RAP: 5.00 mmHg RVSP: 11.07 mmHg FINDINGS -------- Sinus rhythm. This was a technically difficult study with suboptimal views. The left ventricular size is normal. There is mild concentric left ventricular hypertrophy. Overa ll left ventricular systolic function is normal with, an EF between 55 - 60 %. The diastolic fillin g pattern is normal for the age of the patient. The RV was not well visualized. Normal LA size by volume 22+/-6 ml/m2. The right atrial size is normal. Lumason used The aortic valve was not well visualized. The mitral valve was not well visualized. Mild mitral regurgitation is present. Trace tricuspid regurgitation present. Right ventricular systolic pressure is normal at < 35 mmHg. The pulmonic valve was not well visualized. The aortic root size is normal. IVC Not well visulized. There is no pericardial effusion. CONCLUSIONS -------- 1. Sinus rhythm. 2. This was a technically difficult study with suboptimal views. 3. The left ventricular size is normal. 4. There is mild concentric left ventricular hypertrophy. 5. Overall left ventricular systolic function is normal with, an EF between 55 - 60 %. 6. The diastolic filling pattern is normal for the age of the patient. 7. The RV was not well visualized. 8. Normal LA size by volume 22+/-6 ml/m2. 9. Lumason used 10. The aortic valve was not well visualized. 11. The mitral valve was not well visualized. 12. Mild mitral regurgitation is present. 13. Trace tricuspid regurgitation present. 14. Right ventricular systolic pressure is normal at < 35 mmHg. 15. The pulmonic valve was not well visualized. 16. The aortic root size is normal. 17. IVC Not well visulized. 18. There is no pericardial effusion. EMPLOYEE RELATIONS ASSISTANT: Flakita Golden RDCS
[2018-12-25] MEDS ORDERED: APIXABAN 5 MG TAB PO SCH (11:45)
[2018-12-25 11:57] LABS: Glucose,Whole Blood 113 mg/dL (75-99)
--- NOTE | 2018-12-25 15:01 | P.PN ---
Subjective Progress Note Date: 12/25/18 This is an 83-year-old gentleman with history of prostate cancer for which she is currently taking chemotherapy, he also has history of hypertension. He presented to the hospital on this occasion with symptoms of fairly sudden onset of extreme weakness. He states that he was walking to the refrigerator, had what felt like chills even though he was quite warm, and was unable to walk because of the extreme weakness that hit him all of a sudden. Patient also had an episode subsequent to that of some discomfort in his upper back area. Admitted to the hospital, subsequently cardiology consultation was requested because his initial EKG showed atrial fibrillation. Chest x-ray showed minimal subsegmental atelectasis at the left lung base, otherwise negative. A CAT scan of the abdomen and pelvis was performed which revealed interstitial bibasilar pulmonary infiltrates, osteoblastic changes in the bony pelvis and lumbar spine which appear to be new as compared with prior CT suggestive of metastatic disease. Sigmoid diverticulosis without any evidence of diverticulitis. CTA of the chest no evidence of pulmonary embolism, mild fibrotic changes at the lung bases. Osteoblastic changes in the thoracic spine suggestive of metastatic disease. Initial EKG on presentation here showed atrial fibrillation with a controlled ventricular response, subsequently patient converted to normal sinus rhythm and remains in a normal sinus rhythm this morning. Blood pressure 136/60 with a heart rate in 70s, 96% on room air. White blood cell count 7.7, hemoglobin 13.1, platelet count 248. D-dimer 0.3. Sodium 141, potassium 5.3, BUN 17 and creatinine 0.6. Troponin 0.012. TSH 1.8. UA showed evidence of leukocyte Estrace, large amount, urine wbc's 53, many bacteria. At the time of my examination this morning, the patient feels well, denies any palpitations, no difficulty in breathing. He is actually much stronger and he was on his presentation here. 12/25/2018 Patient was seen and examined this morning, ambulating in the hallway without any difficulty. Blood pressure 140/60 with a heart rate in the 70s, 98% on room air. White blood cell count 9.1, hemoglobin 12.9, platelet count 284. Sodium 138, potassium 4.6, BUN 14 and creatinine 0.5. Echocardiogram with Doppler st udy revealed a normal left ventricular systolic function. From our perspective, the patient may be discharged home on Eliquis 5 mg one tablet by mouth twice a day. We will make him a follow-up appointment in the office post discharge. Objective - Vital Signs Vital signs: Vital Signs Temp 96.5 F L 12/25/18 08:00 Pulse 72 12/25/18 08:00 Resp 16 12/25/18 11:39 BP 140/63 12/25/18 08:00 Pulse Ox 98 12/25/18 08:00 Intake & Output 12/24/18 12/25/18 12/25/18 18:59 06:59 18:59 Intake Total 960 480 Balance 960 480 Weight 93.2 kg Intake: Oral 960 480 Other: Voiding Method Toilet Toilet Toilet # Voids 3 1 2 - Exam PHYSICAL EXAMINATION: GENERAL: 83-year-old gentleman in no acute distress at the time of my examination HEENT: Head is atraumatic, normocephalic. Pupils equal, round. Sclera anicteric. Conjunctiva are clear. Mucous membranes of the mouth are moist. Neck is supple. There is no elevated jugular venous pressure. No carotid bruit is heard. HEART EXAMINATION: Heart S1, S2 normal. No murmur or gallop heard. CHEST EXAMINATION: Lungs are clear to auscultation and precussion. No chest wall tenderness is noted on palpation or with deep breathing. ABDOMEN: Soft, nontender. Bowel sounds are heard. No organomegaly noted. EXTREMITIES: 2+ peripheral pulses with no evidence of peripheral edema and no calf tenderness noted. NEUROLOGIC patient is awake, alert and oriented 3 . - Labs CBC & Chem 7: 12/25/18 06:00 12/25/18 06:00 Labs: Abnormal Lab Results - Last 24 Hours (Table) 12/24/18 12/24/18 12/25/18 Range/Units 16:58 20:57 06:00 RBC 4.01 L (4.30-5.90) m/uL Hgb 12.9 L (13.0-17.5) gm/dL Hct 37.5 L (39.0-53.0) % Creatinine (0.66-1.25) mg/dL Glucose (74-99) mg/dL POC Glucose (mg/dL) 157 H 181 H (75-99) mg/dL 12/25/18 12/25/18 12/25/18 Range/Units 06:00 06:02 11:49 RBC (4.30-5.90) m/uL Hgb (13.0-17.5) gm/dL Hct (39.0-53.0) % Creatinine 0.58 L (0.66-1.25) mg/dL Glucose 129 H (74-99) mg/dL POC Glucose (mg/dL) 130 H 113 H (75-99) mg/dL Microbiology - Last 24 Hours (Table) 12/23/18 20:57 Blood Culture - Preliminary Blood No Growth after 24 hours 12/23/18 19:32 Urine Culture - Preliminary Urine,Voided Gram Neg Bacilli Assessment and Plan Plan: Assessment and plan #1 sudden onset of severe weakness, likely secondary to UTI #2 episode of atrial fibrillation, paroxysmal, currently in normal sinus rhythm #3 prostate cancer with evidence of possible bone metastases #4 hypertension #5 history of colon cancer with radiation Plan Echo revealed normal left ventricular systolic function. From cardiology's perspective, the patient may be able to be discharged home today, we'll make him a follow-up appointment with Dr. Mena in the office post discharge. DNP note has been reviewed, I agree with a documented findings and plan of care. Patient was seen and examined.
--- NOTE | 2018-12-25 17:10 | P.DS ---
Providers Date of admission: 12/23/18 21:26 Expected date of discharge: 12/25/18 Attending physician: Rodney Bundy Consults: 12/23/18 20:36 Consult Physician Routine Consulting Provider: Dusty Mena Consult Reason/Comments: afib Do you want consulting provider notified?: Yes 12/23/18 23:51 Consult Physician Routine Consulting Provider: Francisco Javier Boswell Consult Reason/Comments: prostate cancer Do you want consulting provider notified?: Yes Primary care physician: Germaine Shirley [facility] Course: Final diagnosis Weakness, hot flashes: Possible acute adrenal cortical insufficiency Urinary tract infection, present on admission Dehydration, present on admission [place] history of prostate cancer, inoperable, on treatment History of colorectal cancer Increased random blood sugar Mild hyperkalemia Discharge disposition She and is being discharged in a stable condition with guarded prognosis to home and will follow-up with Dr. Boswell on Saturday for his appointment as scheduled. Patient will follow up with Dr. Shirley upon discharge as well. Total time taken is 35 minutes. History of present illness This is an 83-year-old male who was recently admitted with weakness and symptoms of adrenal cortical insufficiency and was being closely monitored. During hospitalization patient was on IV steroids and will be transitioned to Cortef 20 mg in the morning and 10 mg in the afternoon and will follow-up with Dr. Boswell on Saturday and will likely start a prednisone taper at this point. Patient will complete a short course of oral antibiotics in the form of Ceftin 500 mg twice daily for 5 days. Cardiology was following as well and from their perspective patient is stable for discharge and follow-up in the outpatient setting. Cardiology recommendations suggest anticoagulation in the form of Eliquis for paroxysmal atrial fibrillation. During hospitalization a 2-D echo was done showing an ejection fraction between 55 and 60%. Patient will discuss Eliquis at the follow-up appointment with cardiology and once urology clears. Currently patient's condition is stable and much improved. Patient denies any shortness of breath, chest pain, or palpitations at this time. Patient is afebrile. Patient denies any nausea or vomiting and is tolerating diet. Patient would like to go home today. On exam vital signs are stable. Temp is 96.5F, pulse is 72, respirations are 16, blood pressure is 140/63, oxygen saturation is 90% on room air. Cardio S1 and S2 are muffled. Respiratory system shows diminished breath sounds at the bases otherwise clear upon auscultation. Abdomen is soft and nontender. Nervous system shows no focal deficits and gait is steady. Please refer to medication reconciliation sheet for a list of medications. Patient Condition at Discharge: Good Plan - Discharge Summary Discharge Rx Participant: Yes New Discharge Prescriptions: New Cefuroxime Axetil [Ceftin] 500 mg PO BID 5 Days #10 tab Hydrocortisone [Cortef] 20 mg PO DAILY #10 tablet Hydrocortisone [Cortef] 10 mg PO DAILY #10 tablet Continue Mesal/Menth/Camph/Siberian Fir [Vicks Vapoinhaler] 1 spray EA NOSTRIL DAILY PRN PRN Reason: Nasal Congestion Aspirin EC [Ecotrin Low Dose] 81 mg PO HS Tamsulosin HCl [Flomax] 0.4 mg PO DAILY Abiraterone Acetate [Zytiga] 1,000 mg PO DAILY Vit C/E/Zn/Coppr/Lutein/Zeaxan [Preservision Areds 2 Softgel] 1 cap PO DAILY Cyanocobalamin (Vitamin B-12) [Vitamin B-12] 1,000 mcg PO DAILY Calcium Carbonate/Vitamin D3 [Calcium 600-Vit D3 200 Tablet] 1 tab PO BID Discontinued predniSONE 5 mg PO DAILY Discharge Medication List Abiraterone Acetate [Zytiga] 1,000 mg PO DAILY 12/23/18 [History] Aspirin EC [Ecotrin Low Dose] 81 mg PO HS 12/23/18 [History] Calcium Carbonate/Vitamin D3 [Calcium 600-Vit D3 200 Tablet] 1 tab PO BID 12/23/18 [History] Cyanocobalamin (Vitamin B-12) [Vitamin B-12] 1,000 mcg PO DAILY 12/23/18 [History] Mesal/Menth/Camph/Siberian Fir [Vicks Vapoinhaler] 1 spray EA NOSTRIL DAILY PRN 12/23/18 [History] Tamsulosin HCl [Flomax] 0.4 mg PO DAILY 12/23/18 [History] Vit C/E/Zn/Coppr/Lutein/Zeaxan [Preservision Areds 2 Softgel] 1 cap PO DAILY 12/23/18 [History] Cefuroxime Axetil [Ceftin] 500 mg PO BID 5 Days #10 tab 12/25/18 [Rx] Hydrocortisone [Cortef] 10 mg PO DAILY #10 tablet 12/25/18 [Rx] Hydrocortisone [Cortef] 20 mg PO DAILY #10 tablet 12/25/18 [Rx] Follow up Appointment(s)/Referral(s): Francisco Javier Boswell MD [STAFF PHYSICIAN] - 12/29/18 (as scheduled) Germaine Shirley MD [Primary Care Provider] - 1-2 days (Spoke to manager books. Office to call you tomorrow with appointment time.) Dusty Mena MD [STAFF PHYSICIAN] - 01/12/19 11:00 am (Saturday) Patient Instructions/Handouts: A-fib (Atrial Fibrillation) (DC), Urinary Tract Infection in Men (DC) Activity/Diet/Wound Care/Special Instructions: Activity limited until follow-up continue current diet follow up with Dr. Boswell in the clinic on Saturday as scheduled continue current antibiotics until complete follow up with Dr. Shirley this week with urine culture results. Discharge Disposition: HOME SELF-CARE
--- NOTE | 2018-12-26 00:23 | DS ---
DISCHARGE SUMMARY DATE OF SERVICE: 12/25/2018. FINAL DIAGNOSES: 1. Weakness, hot flashes, possible acute adrenocortical insufficiency. 2. Urinary tract infection present on admission. 3. Dehydration present on admission. 4. History of prostate cancer. Inoperative, on Zytiga. 5. History of colorectal cancer. 6. Increased random blood sugar. 7. Mild hyperkalemia. DISCHARGE DISPOSITION: The patient will be discharged in stable condition with guarded prognosis. HISTORY OF PRESENT ILLNESS: This 83-year-old gentleman with a past medical history of multiple medical problems was admitted with multiple other symptomatology, patient was found to have cardiac insufficiency. Patient was still given IV high-dose IV steroids. Patient improved significantly. Dr. Bosewll evaluated the patient. Recommended outpatient followup. So patient will be discharged in stable condition with guarded prognosis with the following advised and medications. On exam, vitals are stable. Cardiovascular S1, S2. abdomen soft. Nervous system: No focal deficits. DISCHARGE ADVICE AND MEDICATIONS: 1. Calcium with vitamin D 1 p.o. b.i.d. 2. Ecotrin 81 mg q.h.s. 3. Flomax 0.4 daily. 4. PreserVision soft gel. 5. Vitamin B12 1000 mcg p.o. daily. 6. Zytiga 1000 mg p.o. daily. 7. Ceftin 500 mg p.o. b.i.d. for 5 days. 8. The final culture report to be evaluated by Dr. Boswell and Dr. Shirley. Medication Cortef 20 mg in the morning and 10 mg in the afternoon. Prednisone dose to be increased and determine per Dr. Boswell in the outpatient setting. Follow with Cardiology and Dr. Boswell as recommended. MMODL / IJN: [id number] /
== END 2018-12-25 12:19 | disposition home or self-care (01) ==
LOC: EC 17:20 → INTOOBSV 21:26 → 3SCARD 21:26
PROVIDERS: ADMIT Hospitalist; ATTEND Hospitalist
DX: N39.0 Urinary tract infection, site not specified (principal); E86.0 Dehydration; I48.0 Paroxysmal atrial fibrillation; C61 Malignant neoplasm of prostate; I10 Essential (primary) hypertension; E87.5 Hyperkalemia; R73.9 Hyperglycemia, unspecified; N13.6 Pyonephrosis; M54.6 Pain in thoracic spine; M54.2 Cervicalgia; R26.2 Difficulty in walking, not elsewhere classified; Z79.82 Long term (current) use of aspirin; Z79.899 Other long term (current) drug therapy; Z79.52 Long term (current) use of systemic steroids; Z85.038 Personal history of other malignant neoplasm of large intestine; Z85.048 Personal history of other malignant neoplasm of rectum, rectosigmoid junction, and anus; Z92.21 Personal history of antineoplastic chemotherapy; Z87.891 Personal history of nicotine dependence; Z92.3 Personal history of irradiation; Z82.49 Family history of ischemic heart disease and other diseases of the circulatory system; Z82.3 Family history of stroke; C79.51 Secondary malignant neoplasm of bone
CPT/HCPCS: 96376 ×2; 96366; 96375; 96361; 96365; 99285; 36415; 93005; 85379; 83880; 80053; 80048 ×2; 82533; 82550; 83605; 83735; 84100; 84443; 84484; 85025 ×3; 85610; 85730; 81001; 87040; 87086; 87077; 87186; 71046; 71275; 74177; G0378 ×4; C8929; J1720 ×2; J0696 ×2; Q9950; Q9967; 93306

== ENCOUNTER → 2019-03-03 | Outpatient (CLI) | payer MEDICARE, BC | END | disposition home or self-care (01) | LOC: LABWHC1 10:32 | PROVIDERS: ATTEND Urology | DX: C61 Malignant neoplasm of prostate (principal) | CPT/HCPCS: 36415; 84153; 84403 ==

== ENCOUNTER → 2019-05-11 | Outpatient (CLI) | payer MEDICARE, BC ==
--- NOTE | 2019-05-11 15:12 | NM ---
EXAMINATION TYPE: NM bone scan whole body DATE OF EXAM: 05/11/2019 COMPARISON: 02/28/2018 bone scan, 12/23/2018 CT scan HISTORY: Prostate cancer Delayed whole-body scanning was performed following the injection of 22.9 mCi Tc 99m MDP. Images acq uired 3 hours post injection. FINDINGS: There is arthropathy of the shoulders. However, there is a more focal area of abnormal uptake involvi ng the head of the left humerus. Question of previous surgery involving the left knee. Abnormal uptak e involving the mid thoracic and mid lumbar spine. Abnormal uptake involving the left iliac wing and sacrum. Abnormal uptake involving the shoulders and feet likely post arthritic. IMPRESSION: 1. Abnormal uptake involving the sacrum and left iliac wing corresponds the previous CT abnormality 2018 suggestive of metastatic disease. 2. Abnormal uptake involving the mid lumbar spine appears new relative the prior exam and x-ray corre lation recommended. 3. Abnormal uptake involving the mid thoracic spine is nonspecific but stable from prior exam. 4. Abnormal uptake involving the shoulders is likely post arthritic, however, there is a more focal a antonio of abnormal uptake involving the head of the left humerus for which x-ray correlation is min [place]
== END | disposition home or self-care (01) ==
LOC: RADNMMAIN 09:41
PROVIDERS: ATTEND Radiology Radiation Oncology
DX: C61 Malignant neoplasm of prostate (principal)
CPT/HCPCS: 78306; A9503

== ENCOUNTER → 2019-06-16 | Outpatient (CLI) | payer MEDICARE, BC | END | disposition home or self-care (01) | LOC: LABWHC1 10:52 | PROVIDERS: ATTEND Urology | DX: C61 Malignant neoplasm of prostate (principal) | CPT/HCPCS: 36415; 84153; 84403 ==

== ENCOUNTER → 2019-09-02 | Outpatient (CLI) | payer MEDICARE, BC ==
[2019-09-02 11:08] LABS: African American GFR (CKD) >90 (>60 ml/min/1.73 sqM); Blood Urea Nitrogen 19 mg/dL (9-20); Non-African American GFR(CKD) >90 (>60 ml/min/1.73 sqM)
--- NOTE | 2019-09-02 13:42 | CT ---
EXAMINATION TYPE: CT abdomen pelvis w con DATE OF EXAM: 09/02/2019 COMPARISON: Prior CT December 23, 2018 and whole body bone scan May 11, 2019 HISTORY: follow up prostate ca CT DLP: 991.9 mGycm, Automated Exposure Control for Dose Reduction was Utilized. CONTRAST: CT scan of the abdomen and pelvis is performed with oral and with IV Contrast, patient injected with 100 mL of Isovue 300. FINDINGS: LUNG BASES: Dependent atelectasis both bases. Coronary artery calcification and/or stent in the RCA d istribution redemonstrated. Mild cardiomegaly noted. LIVER/GB: Scattered small hypodense lesions consistent with simple intrahepatic thin-walled cysts red emonstrated. PANCREAS: Moderate 2 fairly severe generalized fat replaced atrophy redemonstrated greatest at pancre atic head level. SPLEEN: No significant abnormality is seen. ADRENALS: No significant abnormality is seen. KIDNEYS: Symmetric cortical medullary uptake and excretion without hydronephrosis seen bilaterally. S ome mild/moderate nonspecific perinephric fluid again seen. Finding most likely on basis of chronic m edical renal disease in patient of this age. Moderate wall thickening of the superior aspect bladder is nonspecific finding. BOWEL: Oral contrast reaches the level of the distal left colon. No suspicious small or large bowel d ilatation. Normal contrast-filled appendix from base of cecum right lower quadrant. Moderate to sever e focal concentric prominence at level of terminal ileum for reference axial image 55 and coronal gretta ge 36 should be correlated with colonoscopy or if has not recently been performed. Diverticula throug hout the sigmoid colon with mild fecal prominence. No CT evidence for acute diverticulitis. PROSTATE/SEMINAL VESICLES: Prominent prostate gland bulging on bladder base with central calcificatio ns redemonstrated. Persistent 1.7 cm fat dense oval-shaped lesion axial image 78 with rim soft tissue . LYMPH NODES: No greater than 1cm abdominal or pelvic lymph nodes are appreciated. OSSEOUS STRUCTURES: Redemonstration known osseous metastatic disease with heterogeneous trabeculated lesion right iliac bone near sacroiliac joint and scattered sclerotic foci throughout the sacrum and bilateral iliac bones including the largest lesion right superior acetabulum coronal image 59. Lesion left femoral neck coronal image 57 redemonstrated. Scattered lesions in the visualized thoracolumbar spine with largest lesion left L2 level coronal image 55 showing increase in size with confluent evelia earance which was 2 distinct lesions on prior CT. Stable small sclerotic focus right 12th rib coronal image 78. OTHER: Surgical clips right groin region redemonstrated. Moderate to severe calcified plaque of the a fabiola extends into branch vessels. Abnormal narrowing at origin of celiac artery sagittal image 63 for reference better on current study versus prior study due to better contrast opacification of aorta. IMPRESSION: 1. Slight progression in osseous metastatic disease with worsening or enlarging dominant L2 lesion. 2. No new suspicious mass or adenopathy to suggest new metastatic disease. 3. New area of concern right colon near the cecum, advise colonoscopy correlation to exclude malignan cy at this level it has not been performed recently. 4. 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 5. Slightly more prominent superior bladder wall thickening, correlate clinically. Suspect most likel y on basis of known enlarged prostate gland and/or prostate cancer treatment.
== END | disposition home or self-care (01) ==
LOC: RADCTMAIN 10:17
PROVIDERS: ATTEND Internal Medicine Hematology & Oncology
DX: N32.89 Other specified disorders of bladder (principal); C61 Malignant neoplasm of prostate
CPT/HCPCS: 84153; 82565; 84520; 84403; 74177; 36415; Q9967

== ENCOUNTER → 2020-04-29 | Outpatient (CLI) | payer MEDICARE, BC ==
[2020-04-29 14:37] LABS: African American GFR (CKD) >90 (>60 ml/min/1.73 sqM); Blood Urea Nitrogen 17 mg/dL (9-20); Non-African American GFR(CKD) 84 (>60 ml/min/1.73 sqM)
--- NOTE | 2020-05-01 13:20 | CT ---
EXAMINATION TYPE: CT ChestAbdPelvis w con DATE OF EXAM: 04/29/2020 COMPARISON: Most recent CT abdomen and pelvis September 02, 2019 and older CTs. HISTORY: prostate ca CT DLP: 2003.1 mGycm. Automated Exposure Control for Dose Reduction was Utilized. CONTRAST: CT scan of the thorax, abdomen and pelvis is performed with oral and with IV Contrast, patient inject ed with 100 mL of Isovue 300. FINDINGS: LUNGS: Mild to moderate biapical pleural/parenchymal scarring redemonstrated. Dependent atelectasis b ilateral lower lobes. No suspicious nodules or masses. No suspicious consolidation.[address] eural effusion or pneumothorax seen. The tracheobronchial tree is patent. MEDIASTINUM: There are no greater than 1 cm hilar or mediastinal lymph nodes. No pericardial effusi on is seen. Mild cardiomegaly with moderate to severe three-vessel coronary artery calcification. LIVER/GB: Scattered small hypodense lesions consistent with simple intrahepatic thin-walled cysts red emonstrated. No significant interval change. PANCREAS: Moderate to fairly severe generalized fat replaced atrophy redemonstrated greatest at pancr eatic head level. SPLEEN: No significant abnormality is seen. ADRENALS: No significant abnormality is seen. KIDNEYS: Symmetric cortical medullary uptake and excretion without hydronephrosis seen bilaterally. S ome mild/moderate nonspecific perinephric fluid again seen. Finding most likely on basis of chronic m edical renal disease in patient of this age. Mild wall thickening of the superior aspect bladder is l ess prominent than prior. BOWEL: Oral contrast reaches the level of the proximal transverse colon on current study. No suspicio us small or large bowel dilatation. Normal contrast-filled appendix from base of cecum right lower qu adrant. Diverticula throughout the sigmoid colon with mild moderate fecal prominence that level trans verse colon. No CT evidence for acute diverticulitis. PROSTATE/SEMINAL VESICLES: Prostate gland upper limits of normal in size with central calcifications redemonstrated. Persistent 1.7 cm fat dense oval-shaped lesion axial image 109 with rim soft tissue s uperior to prostate gland and seminal vesicles. LYMPH NODES: No new greater than 1cm abdominal or pelvic lymph nodes are appreciated. OSSEOUS STRUCTURES: Redemonstration known osseous metastatic disease with heterogeneous trabeculated lesion right iliac bone near sacroiliac joint and scattered sclerotic foci throughout the sacrum and bilateral iliac bones including the largest lesion right superior acetabulum coronal image 65 redemon strated. Lesion left femoral neck coronal image 64 redemonstrated. Scattered lesions in the visualize d thoracolumbar spine with largest lesion L2 level coronal image 61 showing continued increase in siz e with confluent appearance extending to right of midline now identified. Worsening diffuse sclerotic lesion right L4 vertebra on image 70. Prominent sclerotic lesion T7 vertebra noted for reference. Sc lerotic lesion left humeral head coronal image 48 noted for reference OTHER: Surgical clips right groin region redemonstrated. Moderate plaque of the abdominal aorta exten ds into branch vessels. Abnormal narrowing at origin of celiac artery sagittal image 69 for reference is redemonstrated. IMPRESSION: Continued osseous metastatic disease progression. No new metastatic disease otherwise se en.
== END | disposition home or self-care (01) ==
LOC: RADCTMAIN 13:15
PROVIDERS: ATTEND Internal Medicine Hematology & Oncology
DX: C79.51 Secondary malignant neoplasm of bone (principal); C61 Malignant neoplasm of prostate
CPT/HCPCS: 82565; 84520; 71260; 74177; 36415; Q9967

== ENCOUNTER 2020-11-17 09:12 | Inpatient (IN) | payer MEDICARE, BC ==
[2020-11-17] MEDS ORDERED: SODIUM CHLORIDE 0.9% 1,000 ML IV STA ×2 (09:51→11:11)
--- NOTE | 2020-11-17 09:55 | ED ---
Weakness HPI - General Chief complaint: Weakness Stated complaint: Dehydration Time Seen by Provider: 11/17/20 09:24 Source: patient, family, RN notes reviewed, old records reviewed Mode of arrival: wheelchair Limitations: physical limitation - History of Present Illness Initial comments: This is a 84-year-old male with a history of prostate cancer radiation therapy was brought in today for evaluation of generalized weakness is been going on for about a week it has been on-and-off prior to that. He's had diarrhea for the past week was on Pepto-Bismol with associated black stools and now some other medication. He also has a decreased oral intake decreased appetite he also complains some nonspecific abdominal pain. He has been constipated also associated with this. No overt fevers chills or sweats no cough or phlegm production no overt dysuria. Patient's had at least a 20 pound weight loss this year. MD Complaint: generalized weakness, lack of energy - Related Data Home Medications Medication Instructions Recorded Confirmed Cyanocobalamin (Vitamin B-12) 1,000 mcg PO DAILY 12/23/18 11/17/20 [Vitamin B-12] Tamsulosin HCl [Flomax] 0.4 mg PO HS 12/23/18 11/17/20 Apixaban [Eliquis] 5 mg PO BID 11/17/20 11/17/20 Isosorbide Mononitrate ER [Imdur] 30 mg PO DAILY 11/17/20 11/17/20 Loperamide HCl [Imodium A-D] 2 - 4 mg PO QID PRN 11/17/20 11/17/20 Metoprolol Tartrate [Lopressor] 12.5 mg PO BID 11/17/20 11/17/20 Omeprazole 20 mg PO DAILY 11/17/20 11/17/20 oxyCODONE-APAP 10-325MG [Percocet 1 tab PO Q6H PRN 11/17/20 11/17/20 10-325 mg] Allergies Allergy/AdvReac Type Severity Reaction Status Date / Time No Known Allergies Allergy Verified 11/17/20 11:26 Review of Systems ROS Statement: Those systems with pertinent positive or pertinent negative responses have been documented in the HPI. ROS Other: All systems not noted in ROS Statement are negative. Past Medical History Additional Past Medical History / Comment(s): prostate CA (current inoperable), colon/rectal CA (1985) History of Any Multi-Drug Resistant Organisms: None Reported Past Surgical History: Hernia Repair, Orthopedic Surgery Additional Past Surgical History / Comment(s): colon/rectal surgery 1985, 2 polps removed Past Anesthesia/Blood Transfusion Reactions: No Reported Reaction Past Psychological History: No Psychological Hx Reported Smoking Status: Former smoker Past Alcohol Use History: Occasional Past Drug Use History: None Reported - Past Family History Father Family Medical History: Myocardial Infarction ([place]) Mother Family Medical History: CVA/TIA General Exam - General Exam Comments Initial Comments: This is a well-developed asthenic appearing male who is awake alert oriented 3 Limitations: physical limitation General appearance: alert, in no apparent distress Head exam: Present: atraumatic, normocephalic, normal inspection Eye exam: Present: normal appearance, PERRL, EOMI. Absent: scleral icterus, conjunctival injection, periorbital swelling ENT exam: Present: mucous membranes dry Neck exam: Present: normal inspection, full ROM, other (No stridor JVD or bruits). Absent: tenderness, meningismus, lymphadenopathy Respiratory exam: Present: normal lung sounds bilaterally. Absent: respiratory distress, wheezes, rales, rhonchi, stridor Cardiovascular Exam: Present: irregular rhythm. Absent: systolic murmur, diastolic murmur, rubs, gallop, clicks GI/Abdominal exam: Present: soft, tenderness (Tenderness palpation generally more left-sided than the rest of the abdomen.), normal bowel sounds. Absent: distended, guarding, rebound, rigid Rectal exam: Present: deferred Extremities exam: Present: normal inspection, full ROM, normal capillary refill. Absent: tenderness, pedal edema, joint swelling, calf tenderness Back exam: Present: normal inspection Neurological exam: Present: alert, oriented X3, CN II-XII intact Psychiatric exam: Present: normal affect, normal mood Skin exam: Present: warm, dry, intact, normal color. Absent: rash Course Vital Signs 11/17/20 11/17/20 11/17/20 09:13 10:50 13:02 Temperature 97.7 F Pulse Rate 85 75 71 Respiratory 18 16 16 Rate Blood Pressure 117/60 111/65 117/73 O2 Sat by Pulse 97 98 97 Oximetry EKG Findings - EKG Results: EKG: interpreted by ERMD (Atrial fibrillation rate is 65 QRS 94 QT/QTC 448/465 left exodeviation incomplete right bundle-branch block) Medical Decision Making - Medical Decision Making I did discuss findings with patient family as well as with Dr. Manzano who did come see the patient in emergency department patient be admitted with surgical consultation. - Lab Data Result diagrams: 11/17/20 09:54 11/17/20 09:54 Lab Results 11/17/20 11/17/20 11/17/20 Range/Units 09:54 09:54 09:54 WBC 2.8 L (3.8-10.6) k/uL RBC 2.88 L (4.30-5.90) m/uL Hgb 9.5 L (13.0-17.5) gm/dL Hct 28.8 L (39.0-53.0) % MCV 99.9 (80.0-100.0) fL MCH 32.8 (25.0-35.0) pg MCHC 32.9 (31.0-37.0) g/dL RDW 18.7 H (11.5-15.5) % Plt Count 266 (150-450) k/uL MPV 8.1 Neutrophils % (Manual) 31 % Band Neuts % (Manual) 24 % Lymphocytes % (Manual) 28 % Monocytes % (Manual) 12 % Eosinophils % (Manual) 2 % Metamyelocytes % 2 % Myelocytes % 1 % Neutrophils # (Manual) 1.50 (1.3-7.7) k/uL Lymphocytes # (Manual) 0.78 L (1.0-4.8) k/uL Monocytes # (Manual) 0.34 (0-1.0) k/uL Eosinophils # (Manual) 0.06 (0-0.7) k/uL Metamyelocytes # (Man) 0.06 H (0) k/uL Myelocytes # (Manual) 0.03 H (0) k/uL Nucleated RBCs 2 H (0-0) /100 WBC Manual Slide Review Performed Hypochromasia Slight Poikilocytosis Slight Poikilocytosis (manual Present Anisocytosis Slight Anisocytosis (manual) Present Macrocytosis Slight Tear Drop Cells Present Sodium 136 L (137-145) mmol/L Potassium 4.1 (3.5-5.1) mmol/L Chloride 106 (98-107) mmol/L Carbon Dioxide 19 L (22-30) mmol/L Anion Gap 11 mmol/L BUN 14 (9-20) mg/dL Creatinine 0.48 L (0.66-1.25) mg/dL Est GFR (CKD-EPI)AfAm >90 (>60 ml/min/1.73 sqM) Est GFR (CKD-EPI)NonAf >90 (>60 ml/min/1.73 sqM) Glucose 103 H (74-99) mg/dL Plasma Lactic Acid Brian (0.7-2.0) mmol/L Calcium 7.8 L (8.4-10.2) mg/dL Total Bilirubin 1.1 (0.2-1.3) mg/dL AST 34 (17-59) U/L ALT 10 (4-49) U/L Alkaline Phosphatase 275 H (38-126) U/L Creatine Kinase 88 (55-170) U/L Troponin I (0.000-0.034) ng/mL Total Protein 6.0 L (6.3-8.2) g/dL Albumin 3.6 (3.5-5.0) g/dL Amylase <30 L (30-110) U/L Lipase 13 L (23-300) U/L Urine Color Yellow Urine Appearance Clear (Clear) Urine pH 6.0 (5.0-8.0) Ur Specific [place] 1.022 (1.001-1.035) Urine Protein Trace H (Negative) Urine Glucose (UA) Negative (Negative) Urine Ketones 2+ H (Negative) Urine Blood Negative (Negative) Urine Nitrite Negative (Negative) Urine Bilirubin Negative (Negative) Urine Urobilinogen 2.0 (<2.0) mg/dL Ur Leukocyte Esterase Negative (Negative) 11/17/20 11/17/20 Range/Units 09:54 09:54 WBC (3.8-10.6) k/uL RBC (4.30-5.90) m/uL Hgb (13.0-17.5) gm/dL Hct (39.0-53.0) % MCV (80.0-100.0) fL MCH (25.0-35.0) pg MCHC (31.0-37.0) g/dL RDW (11.5-15.5) % Plt Count (150-450) k/uL MPV Neutrophils % (Manual) % Band Neuts % (Manual) % Lymphocytes % (Manual) % Monocytes % (Manual) % Eosinophils % (Manual) % Metamyelocytes % % Myelocytes % % Neutrophils # (Manual) (1.3-7.7) k/uL Lymphocytes # (Manual) (1.0-4.8) k/uL Monocytes # (Manual) (0-1.0) k/uL Eosinophils # (Manual) (0-0.7) k/uL Metamyelocytes # (Man) (0) k/uL Myelocytes # (Manual) (0) k/uL Nucleated RBCs (0-0) /100 WBC Manual Slide Review Hypochromasia Poikilocytosis Poikilocytosis (manual Anisocytosis Anisocytosis (manual) Macrocytosis Tear Drop Cells Sodium (137-145) mmol/L Potassium (3.5-5.1) mmol/L Chloride (98-107) mmol/L Carbon Dioxide (22-30) mmol/L Anion Gap mmol/L BUN (9-20) mg/dL Creatinine (0.66-1.25) mg/dL Est GFR (CKD-EPI)AfAm (>60 ml/min/1.73 sqM) Est GFR (CKD-EPI)NonAf (>60 ml/min/1.73 sqM) Glucose (74-99) mg/dL Plasma Lactic Acid Brian 1.4 (0.7-2.0) mmol/L Calcium (8.4-10.2) mg/dL Total Bilirubin (0.2-1.3) mg/dL AST (17-59) U/L ALT (4-49) U/L Alkaline Phosphatase (38-126) U/L Creatine Kinase (55-170) U/L Troponin I <0.012 (0.000-0.034) ng/mL Total Protein (6.3-8.2) g/dL Albumin (3.5-5.0) g/dL Amylase (30-110) U/L Lipase (23-300) U/L Urine Color Urine Appearance (Clear) Urine pH (5.0-8.0) Ur Specific [place] (1.001-1.035) Urine Protein (Negative) Urine Glucose (UA) (Negative) Urine Ketones (Negative) Urine Blood (Negative) Urine Nitrite (Negative) Urine Bilirubin (Negative) Urine Urobilinogen (<2.0) mg/dL Ur Leukocyte Esterase (Negative) - Radiology Data Radiology results: report reviewed (Image reviewed evidence of small bowel obstruction. Please had complete report.), image reviewed Disposition Clinical Impression: Small bowel obstruction, Dehydration, Weakness, Failure to thrive in adult, Prostate cancer Disposition: ADMITTED IP TO THIS HOSP Condition: Fair Referrals: Germaine Shirley MD [Primary Care Provider] - 1-2 days
[2020-11-17 10:08] LABS: Anisocytosis Slight; HCT 28.8 % (39.0-53.0); HGB 9.5 gm/dL (13.0-17.5); Hypochromasia Slight; MCH 32.8 pg (25.0-35.0); MCHC 32.9 g/dL (31.0-37.0); MCV 99.9 fL (80.0-100.0); Macrocytosis Slight; Mean Platelet Volume 8.1; Platelet Count 266 k/uL (150-450); Poikilocytosis Slight; RBC 2.88 m/uL (4.30-5.90); RDW 18.7 % (11.5-15.5)
[2020-11-17 10:22] LABS: ALT 10 U/L (4-49); AST 34 U/L (17-59); African American GFR (CKD) >90 (>60 ml/min/1.73 sqM); Albumin 3.6 g/dL (3.5-5.0); Alkaline Phosphatase 275 U/L (38-126); Amylase <30 U/L (30-110); Anion Gap 11 mmol/L; Blood Urea Nitrogen 14 mg/dL (9-20); Calcium 7.8 mg/dL (8.4-10.2); Carbon Dioxide 19 mmol/L (22-30); Chloride 106 mmol/L (98-107); Creatine Kinase 88 U/L (55-170); Glucose 103 mg/dL (74-99); Lipase 13 U/L (23-300); Non-African American GFR(CKD) >90 (>60 ml/min/1.73 sqM); Potassium 4.1 mmol/L (3.5-5.1); Sodium 136 mmol/L (137-145); Total Bilirubin 1.1 mg/dL (0.2-1.3)
--- NOTE | 2020-11-17 10:25 | XR ---
EXAMINATION TYPE: XR chest 2V DATE OF EXAM: 11/17/2020 COMPARISON: Chest x-ray and CTA chest December 23, 2018. CT whole body April 29, 2020 HISTORY: Chest and abdominal pain. TECHNIQUE: Frontal and lateral views of the chest are obtained. FINDINGS: There is no new suspicious focal air space opacity, pleural effusion, or pneumothorax seen . Cardiomegaly is redemonstrated. Scattered sclerotic osseous metastatic disease redemonstrated for r eference left humeral head. IMPRESSION: No acute cardiopulmonary process. Known osseous sclerotic metastatic disease redemonstra david.
--- NOTE | 2020-11-17 10:27 | XR ---
EXAMINATION TYPE: XR KUB DATE OF EXAM: 11/17/2020 10:11 AM CLINICAL HISTORY: History of prostate cancer with weakness and pain TECHNIQUE: Single upright KUB image of the abdomen is. COMPARISON: CT chest abdomen and pelvis April 29, 2020. FINDINGS: Scattered prominent gas-filled small bowel loops with air-fluid levels greatest in the uppe r to mid abdomen. Slightly prominent stomach with air-fluid level. No free air or suspicious calcific ation. The lung bases are clear . Scattered sclerotic osseous metastatic disease redemonstrated. Enti re pelvis not included. IMPRESSION: Consider developing mid to distal small bowel obstruction. Consider CT evaluation based o n clinical correlation.
[2020-11-17 11:04] LABS: Appearance,Urine Clear (Clear); Bilirubin,Urine Negative (Negative); Blood,Urine Negative (Negative); Color,Urine Yellow; Glucose,Urine (UA) Negative (Negative); Ketones,Urine 2+ (Negative); Leukocyte Esterase,Urine Negative (Negative); Nitrite,Urine Negative (Negative); Protein,Urine Trace (Negative); Specific Gravity,Urine 1.022 (1.001-1.035)
[2020-11-17 11:07] LABS: Band Neutrophils % 24 %; Eosinophils # (M) 0.06 k/uL (0-0.7); Metamyelocytes # (M) 0.06 k/uL (0); Metamyelocytes % 2 %; Myelocytes # (M) 0.03 k/uL (0); Myelocytes % 1 %; Neutrophils % (M) 31 %; Nucleated Red Blood Cells 2 /100 WBC (0-0); Total Cells Counted 100
[2020-11-17 11:08] LABS: Anisocytosis (M) Present; Lymphocytes # (M) 0.78 k/uL (1.0-4.8); Monocytes # (M) 0.34 k/uL (0-1.0); Poikilocytosis (M) Present; WBC 2.8 k/uL (3.8-10.6)
[2020-11-17 11:09] LABS: Tear Drop Cells Present
--- NOTE | 2020-11-17 12:08 | CT ---
EXAMINATION TYPE: CT abdomen pelvis w con DATE OF EXAM: 11/17/2020 COMPARISON: 04/29/2020 HISTORY: 84-year-old male pain, diarrhea, loss of appetite, history of prostate and colorectal CA TECHNIQUE: Contiguous axial scanning of the abdomen and pelvis following administration of 100 ml Iso anu 300 IV contrast. Delayed images through the kidneys and coronal/sagittal reconstructions perform ed. CT DLP: 1035.4 mGycm Automated exposure control for dose reduction was used. FINDINGS: Heart is borderline enlarged without pericardial effusion. RCA coronary artery calcificatio ns are present. Dependent atelectasis posterior lung bases. No pleural effusion. A few scattered cysts redemonstrated within the liver measuring up to 1.3 cm. Portal venous system is patent. No biliary ductal dilatation identified. Gallbladder mildly hydropic at 4.4 cm wide, probably due to fasting state. Moderate atherosclerotic calcifications infrarenal abdominal aorta and iliac arteries with fusiform e ctasia infrarenal segment to 2.7 cm. Adrenal glands, kidneys, spleen within normal limits. Atrophic pancreas. New 1 cm soft tissue nodule along the superior margin of the pancreatic body, axia l image 24 could represent a pancreatic lesion or adjacent lymph node. Numerous dilated fluid-filled small bowel loops mid and lower abdomen measuring up to 3.4 cm possible transition point left upper to mid abdomen, coronal image 39, axial image 34. Distal ileum and colon are collapsed. Sigmoid diverticulosis. Mild wall thickening proximal sigmoid colon likely due to non distention. Otherwise, no mesenteric or retroperitoneal lymphadenopathy. Bladder not distended. Central prosthetic calcifications. No pelvic lymph nodes not be seen. There is new mild perihepatic and moderate pelvic ascites fluid. No free air. Surgical clips redemonstrated deep to the right adrenal region. Bones: Moderate degenerative change of the hips. Diffuse sclerosis throughout the osseous structures redemonstrated. Bilateral L5 pars defects with trace grade 1 anterolisthesis L5-S1. IMPRESSION: 1. FINDINGS SUGGEST SMALL BOWEL OBSTRUCTION, TRANSITION POINT LIKELY IN THE LEFT MID ABDOMEN, CORONAL IMAGE 39 AND AXIAL IMAGE 34. SMALL BOWEL LOOPS ARE DILATED UP TO 3.4 CM. 2. MILDLY HYDROPIC GALLBLADDER AT 4.4 CM WIDE, PROBABLY DUE TO FASTING STATE. 3. A NEW SOFT TISSUE NODULE ALONG THE SUPERIOR MARGIN OF THE PANCREATIC BODY, AXIAL IMAGE 24 COULD RE PRESENT AN EARLY SMALL PANCREATIC NEOPLASM VERSUS ADJACENT LYMPH NODE. CLOSE CT FOLLOW-UP TO ASSESS F OR ANY CHANGE. IF PROGRESSIVE GROWTH, FURTHER APPROPRIATE MANAGEMENT WILL BE RECOMMENDED. 4. KNOWN DIFFUSE OSTEOBLASTIC METASTASES. 5. NEW MILD ABDOMINAL AND MODERATE PELVIC ASCITES.
[2020-11-17] MEDS ORDERED: NALOXONE 0.4 MG/ML 1 ML VIAL IV PRN (13:06)
[2020-11-17] MEDS ORDERED: ONDANSETRON 4 MG/2 ML VIAL IVP PRN (13:06)
[2020-11-17] MEDS ORDERED: oxyCODONE-APAP 10-325MG 1 EACH TAB PO PRN (13:26)
--- NOTE | 2020-11-17 13:40 | P.HPIM ---
History of Present Illness H&P Date: 11/17/20 Chief Complaint: Abdominal pain This is a pleasant 84-year-old patient who follows with Dr. Germaine Shirley. Oncologist Dr. Law. Radiation oncologist Dr. Jeremias Tavarez. Patient was diagnosed posterior 3 years ago with prostate cancer. Patient did receive 2 courses of chemotherapy pills. Discontinued sometime ago. Of the cowboy finished [address] Tavarez. Was having lower back pain. Which is better. Patient has metastatic disease to the osseous structures. In the past patient's had: Possibly malignant polyp which had surgical treatment at the junction of the sigmoid colon and rectum. Ulcer received radiation treatment with some complications same. Had a baseline patient is bowel movement varies. Last week patient had some watery stools. For about one or 2 days. For last 2 days has had no bowel movement. Patient's abdomen is chron ically distended. No nausea vomiting. No weight loss. Patient has motor extremity edema present intermittently. No shortness of breath. Patient is able to get around the house. No fever no chills no cough. Decrease appetite. Colostomy some abdominal pain. Abdominal x-ray and computed tomography scan of the ER does confirm small bowel obstruction. Patient's at the bedside. Review of systems: GEN.: Tired decreased appetite EYES: None HEENT: None NECK: None RESPIRATORY: Occasional cough CARDIOVASCULAR: None GASTROINTESTINAL: As above GENITOURINARY: None MUSCULOSKELETAL: Some joint pains LYMPHATICS: None HEMATOLOGICAL: None PSYCHIATRY: None NEUROLOGICAL: None Past medical history to include: metastatic prostate cancer treated with chemotherapeutic pills and radiation treatment, BPH, atrial fibrillation, GERD Social history: Retired [employer]. . Former smoker. Alcohol rarely. Family history: Reviewed, noncontributory to presentation Physical examination: VITAL SIGNS: 97.7, 85, 18, 117/60, 97% room air GENERAL: BMI 25.1, laying in bed, tired. EYES: Pupils equal. Conjunctiva normal. HEENT: External appearance of nose and ears normal, oral cavity dry mucous m embranes. NECK: JVD not raised; masses not palpable. HEART: First and second heart sounds are normal; no edema. LUNGS: Respiratory rate normal; decreased breath sounds. ABDOMEN: Soft, distended mildly tender, liver spleen not palpable, no masses palpable. PSYCH: Alert and oriented x3; mood and affect normal. MUSCULAR skeletal: Evidence of OA NEUROLOGICAL: Cranial nerves grossly intact; no facial asymmetry, power and sensation grossly intact. LYMPHATICS: No lymph nodes palpable in the axilla and neck INVESTIGATIONS, reviewed in the clinical context: WBC 2.8 hemoglobin 9.5 platelets 266 potassium 4.1 creatinine 0.48 glucose 103 alkaline phosphatase 275 amylase less than 30 lipase 13 UA positive for ketones 2+ EKG tracing personally reviewed by me-atrial fibrillation, rate 65 Chest x-ray films personally reviewed by me: Hyperinflation. No obvious infiltrate KUB films personally reviewed by me: Dilated small bowel with air-fluid level Computed tomography scan abdomen and pelvis with contrast: Gallbladder mildly hydropic 4.4 cm, atrophic pancreas, questionable pancreatic head lesion, numerous dilated fluid-filled small bowel loops mid and lower abdomen up to 3.4 cm with a transition point. Distal ileum and colon are collapsed. Sigmoid diverticulosis. Mild ascites. DJD. Diffuse sclerosis. Assessment and plan: -Acute distal small bowel obstruction in a patient with known prior bowel surgery. No nausea vomiting. Abdominal pain. General surgery consulted. Patient remained nothing by mouth except medications. 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 Patient has received chemotherapeutic pills in the past. Recent radiation treatment. Consult Dr. Escalante -Persistent atrial fibrillation, rate controlled Hold off eliquis. Use Lovenox 60 mg subcu every 12. Telemetry. Lopressor 12.5 by mouth twice a day -BPH Flomax 0.4 mg daily at bedtime -GERD Omeprazole 20 mg daily -Bony pain due to metastatic disease Percocet 10 every 6 when necessary Patient be admitted to the hospital. IV fluids. Consult general surgery. Resume home medications. Nothing by mouth otherwise. Lovenox therapeutic dose. Care was discussed with the patient and at the bedside. Questions answered. Given the complexity and severity of patient's condition expect the patient to be in the hospital at least for 2 overnights Past Medical History Additional Past Medical History / Comment(s): prostate CA (current inoperable), colon/rectal CA (1984) History of Any Multi-Drug Resistant Organisms: None Reported Past Surgical History: Hernia Repair, Orthopedic Surgery Additional Past Surgical History / Comment(s): colon/rectal surgery 1984, 2 polps removed Past Anesthesia/Blood Transfusion Reactions: No Reported Reaction Past Psychological History: No Psychological Hx Reported Smoking Status: Former smoker Past Alcohol Use History: Occasional Past Drug Use History: None Reported - Past Family History Father Family Medical History: Myocardial Infarction ([place]) Mother Family Medical History: CVA/TIA Medications and Allergies Home Medications Medication Instructions Recorded Confirmed Type Cyanocobalamin (Vitamin B-12) 1,000 mcg PO DAILY 12/23/18 11/17/20 History [Vitamin B-12] Tamsulosin HCl [Flomax] 0.4 mg PO HS 12/23/18 11/17/20 History Apixaban [Eliquis] 5 mg PO BID 11/17/20 11/17/20 History Isosorbide Mononitrate ER [Imdur] 30 mg PO DAILY 11/17/20 11/17/20 History Loperamide HCl [Imodium A-D] 2 - 4 mg PO QID PRN 11/17/20 11/17/20 History Metoprolol Tartrate [Lopressor] 12.5 mg PO BID 11/17/20 11/17/20 History Omeprazole 20 mg PO DAILY 11/17/20 11/17/20 History oxyCODONE-APAP 10-325MG [Percocet 1 tab PO Q6H PRN 11/17/20 11/17/20 History 10-325 mg] Allergies Allergy/AdvReac Type Severity Reaction Status Date / Time No Known Allergies Allergy Verified 11/17/20 11:26 Physical Exam Vitals: Vital Signs Temp Pulse Resp BP Pulse Ox 11/17/20 13:02 71 16 117/73 97 11/17/20 10:50 75 16 111/65 98 11/17/20 09:13 97.7 F 85 18 117/60 97 Intake and Output 11/16/20 11/17/20 11/17/20 22:59 06:59 14:59 Other: Weight 77.111 kg Results CBC & Chem 7: 11/17/20 09:54 11/17/20 09:54 Labs: Abnormal Lab Results - Last 24 Hours (Table) 11/17/20 11/17/20 11/17/20 Range/Units 09:54 09:54 09:54 WBC 2.8 L (3.8-10.6) k/uL RBC 2.88 L (4.30-5.90) m/uL Hgb 9.5 L (13.0-17.5) gm/dL Hct 28.8 L (39.0-53.0) % RDW 18.7 H (11.5-15.5) % Lymphocytes # (Manual) 0.78 L (1.0-4.8) k/uL Metamyelocytes # (Man) 0.06 H (0) k/uL Myelocytes # (Manual) 0.03 H (0) k/uL Nucleated RBCs 2 H (0-0) /100 WBC Sodium 136 L (137-145) mmol/L Carbon Dioxide 19 L (22-30) mmol/L Creatinine 0.48 L (0.66-1.25) mg/dL Glucose 103 H (74-99) mg/dL Calcium 7.8 L (8.4-10.2) mg/dL Alkaline Phosphatase 275 H (38-126) U/L Total Protein 6.0 L (6.3-8.2) g/dL Amylase <30 L (30-110) U/L Lipase 13 L (23-300) U/L Urine Protein Trace H (Negative) Urine Ketones 2+ H (Negative)
[2020-11-17] MEDS: SODIUM CHLORIDE 0.9% 1,000 ML IV SCH ×2 (14:05→22:19)
[2020-11-17] MEDS ORDERED: IBUPROFEN 600 MG TAB PO PRN (17:03)
[2020-11-17] MEDS ORDERED: ACETAMINOPHEN TAB 325 MG TAB PO PRN (17:03)
--- NOTE | 2020-11-17 17:09 | P.GSCN ---
History of Present Illness Consult date: 11/17/20 Reason for Consult: Small bowel obstruction History of present illness: 84-year-old male comes to the hospital for evaluation of abdominal pain and anorexia. Patient with history of prostate cancer and associated bony metastasis. States that over the last 1 month he has had vague abdominal discomfort and diarrhea. Usually 3-4 loose stools per day. Recently 3-4 days ago took Lomotil for 2 days in a row area and since then his stools dis continued. He is passing flatus. Denies nausea or vomiting. States that when he eats he has increased abdominal pain. Also has been on heavy narcotic use recently. Generally feels weak. Appetite is significantly diminished. CAT scan abdomen and pelvis read as possible small bowel obstruction. CAT scan was reviewed. The patient does have small bowel distention however significant transition point not well appreciated. Findings consistent with either partial small bowel obstruction or ileus which seems more likely given the patient's recent history. Patient with history of previous sigmoid resection for malignancy 30 some years ago. CAT scan also shows some fullness of the right in guinal canal. There is evidence of previous surgery there. Patient denies any recurrent hernia that he is aware of. Review of Systems The patient denies any acute changes in vision or hearing, no dysphagia or odynophagia, no chest pain or shortness of breath, no dysuria or hematuria, no headache, no runny nose, no rectal bleeding or melena Past Medical History Additional Past Medical History / Comment(s): prostate CA (current inoperable), colon/rectal CA (1984) History of Any Multi-Drug Resistant Organisms: None Reported Past Surgical History: Hernia Repair, Orthopedic Surgery Additional Past Surgical History / Comment(s): colon/rectal surgery 1984, 2 polps removed Past Anesthesia/Blood Transfusion Reactions: No Reported Reaction Past Psychological History: No Psychological Hx Reported Smoking Status: Former smoker Past Alcohol Use History: Occasional Past Drug Use History: None Reported - Past Family History Father Family Medical History: Myocardial Infarction ([place]) Mother Family Medical History: CVA/TIA Medications and Allergies Home Medications Medication Instructions Recorded Confirmed Type Cyanocobalamin (Vitamin B-12) 1,000 mcg PO DAILY 12/23/18 11/17/20 History [Vitamin B-12] Tamsulosin HCl [Flomax] 0.4 mg PO HS 12/23/18 11/17/20 History Apixaban [Eliquis] 5 mg PO BID 11/17/20 11/17/20 History Isosorbide Mononitrate ER [Imdur] 30 mg PO DAILY 11/17/20 11/17/20 History Loperamide HCl [Imodium A-D] 2 - 4 mg PO QID PRN 11/17/20 11/17/20 History Metoprolol Tartrate [Lopressor] 12.5 mg PO BID 11/17/20 11/17/20 History Omeprazole 20 mg PO DAILY 11/17/20 11/17/20 History oxyCODONE-APAP 10-325MG [Percocet 1 tab PO Q6H PRN 11/17/20 11/17/20 History 10-325 mg] Allergies Allergy/AdvReac Type Severity Reaction Status Date / Time No Known Allergies Allergy Verified 11/17/20 11:26 Surgical - Exam Vital Signs Temp Pulse Resp BP Pulse Ox 97.7 F 85 18 117/60 97 11/17/20 09:13 11/17/20 09:13 11/17/20 09:13 11/17/20 09:13 11/17/20 09:13 Physical exam: General: Elderly white male mildly malnourished appearing, no distress HEENT: Normocephalic, sclerae nonicteric Abdomen: Mild distention, nontender, no palpable inguinal hernias Extremities: No edema Neuro: Alert and oriented Results - Labs 11/17/20 09:54 11/17/20 09:54 Abnormal Lab Results - Last 24 Hours (Table) 11/17/20 11/17/20 11/17/20 Range/Units 09:54 09:54 09:54 WBC 2.8 L (3.8-10.6) k/uL RBC 2.88 L (4.30-5.90) m/uL Hgb 9.5 L (13.0-17.5) gm/dL Hct 28.8 L (39.0-53.0) % RDW 18.7 H (11.5-15.5) % Lymphocytes # (Manual) 0.78 L (1.0-4.8) k/uL Metamyelocytes # (Man) 0.06 H (0) k/uL Myelocytes # (Manual) 0.03 H (0) k/uL Nucleated RBCs 2 H (0-0) /100 WBC Sodium 136 L (137-145) mmol/L Carbon Dioxide 19 L (22-30) mmol/L Creatinine 0.48 L (0.66-1.25) mg/dL Glucose 103 H (74-99) mg/dL Calcium 7.8 L (8.4-10.2) mg/dL Alkaline Phosphatase 275 H (38-126) U/L Total Protein 6.0 L (6.3-8.2) g/dL Amylase <30 L (30-110) U/L Lipase 13 L (23-300) U/L Urine Protein Trace H (Negative) Urine Ketones 2+ H (Negative) Diabetes panel 11/17/20 Range/Units 09:54 Sodium 136 L (137-145) mmol/L Potassium 4.1 (3.5-5.1) mmol/L Chloride 106 (98-107) mmol/L Carbon Dioxide 19 L (22-30) mmol/L BUN 14 (9-20) mg/dL Creatinine 0.48 L (0.66-1.25) mg/dL Glucose 103 H (74-99) mg/dL Calcium 7.8 L (8.4-10.2) mg/dL AST 34 (17-59) U/L ALT 10 (4-49) U/L Alkaline Phosphatase 275 H (38-126) U/L Total Protein 6.0 L (6.3-8.2) g/dL Albumin 3.6 (3.5-5.0) g/dL Calcium panel 11/17/20 Range/Units 09:54 Calcium 7.8 L (8.4-10.2) mg/dL Albumin 3.6 (3.5-5.0) g/dL Pituitary panel 11/17/20 Range/Units 09:54 Sodium 136 L (137-145) mmol/L Potassium 4.1 (3.5-5.1) mmol/L Chloride 106 (98-107) mmol/L Carbon Dioxide 19 L (22-30) mmol/L BUN 14 (9-20) mg/dL Creatinine 0.48 L (0.66-1.25) mg/dL Glucose 103 H (74-99) mg/dL Calcium 7.8 L (8.4-10.2) mg/dL Adrenal panel 11/17/20 Range/Units 09:54 Sodium 136 L (137-145) mmol/L Potassium 4.1 (3.5-5.1) mmol/L Chloride 106 (98-107) mmol/L Carbon Dioxide 19 L (22-30) mmol/L BUN 14 (9-20) mg/dL Creatinine 0.48 L (0.66-1.25) mg/dL Glucose 103 H (74-99) mg/dL Calcium 7.8 L (8.4-10.2) mg/dL Total Bilirubin 1.1 (0.2-1.3) mg/dL AST 34 (17-59) U/L ALT 10 (4-49) U/L Alkaline Phosphatase 275 H (38-126) U/L Total Protein 6.0 L (6.3-8.2) g/dL Albumin 3.6 (3.5-5.0) g/dL Assessment and Plan (1) Abdominal pain Narrative/Plan: 10-year-old male with abdominal pain and small bowel distention by CAT scan. Ileus versus partial small bowel obstruction remains within the differential. Etiology unclear. Certainly could be related to recent antidiarrheals. Would favor minimizing narcotic use at this time. Will ordered and Tylenol, Motrin, Ultram for pain. Repeat abdominal x-rays tomorrow. May begin clear liquid diet. Stool for C. diff will be ordered if recurrent diarrhea noted. Current Visit: Yes Status: Acute Code(s): R10.9 - UNSPECIFIED ABDOMINAL PAIN SNOMED Code(s): 38828850
[2020-11-17] MEDS: METOPROLOL TARTRATE 12.5 MG TAB PO SCH (18:55)
[2020-11-17] MEDS: ENOXAPARIN 60 MG/0.6 ML SYRINGE SQ SCH (18:56)
[2020-11-17] MEDS: TAMSULOSIN 0.4 MG CAP.ER.24H PO SCH (18:56)
[2020-11-18] MEDS: METOPROLOL TARTRATE 12.5 MG TAB PO SCH ×2 (07:36→20:36)
[2020-11-18] MEDS: PANTOPRAZOLE 40 MG TABLET PO SCH (07:37)
[2020-11-18] MEDS: ISOSORBIDE MONONITRATE ER 30 MG TAB.ER.24H PO SCH (07:37)
[2020-11-18] MEDS: traMADol 50 MG TAB PO PRN ×2 (07:37→17:55)
[2020-11-18] MEDS: ENOXAPARIN 60 MG/0.6 ML SYRINGE SQ SCH (07:37)
[2020-11-18] MEDS: SODIUM CHLORIDE 0.9% 1,000 ML IV SCH ×2 (07:41→11:37)
--- NOTE | 2020-11-18 08:14 | XR ---
EXAMINATION TYPE: XR abdomen 2V DATE OF EXAM: 11/18/2020 COMPARISON: 11/17/2020 INDICATION: Follow-up obstruction TECHNIQUE: Single view abdomen upright view FINDINGS: No free air is evident. There are multiple air-fluid levels within prominent small bowel loops. Diffe rential air-fluid levels are within the mid to distal jejunum. No significant colonic bowel gas is ev ident. Findings can be compatible with small bowel obstruction. Psoas margins are poorly visualized. No mass effect is evident. No organomegaly is present. IMPRESSION: 1. Continued small bowel obstruction. Dilated small bowel loops with differential air-fluid levels re main present.
--- NOTE | 2020-11-18 11:57 | P.PN ---
<Maria Luisa Chahal - Last Filed: 11/18/20 11:52> Subjective Progress Note Date: 11/18/20 CHIEF COMPLAINT: Abdominal pain HISTORY OF PRESENT ILLNESS: Surgical service following for ileus versus small bowel obstruction. Patient's abdomen is still distended. He is complaining of right-sided abdominal pain. He reports that the pain is slightly better than yesterday. He is having flatus and bowel movements. Yesterday evening stool was liquidy. He did have one plus soft stool this morning. His stool for C. diff was negative. He's afebrile. He's currently on a clear liquid diet. Abdominal x-ray shows continued small bowel obstruction. Dilated small bowel loops with differential air-fluid levels remain present. PHYSICAL EXAM: VITAL SIGNS: Reviewed. GENERAL: Well-developed in no acute distress. HEENT: No sclera icterus. Extraocular movements grossly intact. Moist buccal mucosa. Head is atraumatic, normocephalic. ABDOMEN: Soft. Nondistended. Nontender. NEUROLOGIC: Alert and oriented. Cranial nerves II through XII grossly intact. ASSESSMENT: 1. Ileus versus small bowel obstruction 2. History of prostate cancer and associated bony metastasis PLAN: -Further recommendations forthcoming per surgeon -Continue clear liquid diet -Encourage patient to ambulate -Minimize narcotic use Physician [employer] note has been reviewed by physician. Signing provider agrees with the documented findings, assessment, and plan of care. Objective - Vital Signs Vital signs: Vital Signs Temp 97.7 F 11/18/20 08:00 Pulse 66 11/18/20 08:00 Resp 16 11/18/20 08:00 BP 120/65 11/18/20 08:00 Pulse Ox 98 11/18/20 08:00 Intake & Output 11/17/20 11/18/20 11/18/20 18:59 06:59 18:59 Weight 77.111 kg Other: # Voids 1 2 # Bowel Movements 1 2 - Labs CBC & Chem 7: 11/17/20 09:54 11/17/20 09:54 <Leandro Villalta - Last Filed: 11/18/20 12:43> Subjective As above. Today's x-rays show persistent small bowel dilation. Despite that the patient has had multiple stool since yesterday. Still feels mildly bloated. No nausea or vomiting. Patient was frustrated with the choices on the clear liquid tray. We'll change to full liquids although I encouraged the patient only try small amounts at a time and see how he tolerates that. If the patient's symptoms persist will order a small bowel follow-through. Objective - Vital Signs Vital signs: Vital Signs Temp 97.7 F 11/18/20 08:00 Pulse 66 11/18/20 08:00 Resp 16 11/18/20 08:00 BP 120/65 11/18/20 08:00 Pulse Ox 98 11/18/20 08:00 Intake & Output 11/17/20 11/18/20 11/18/20 18:59 06:59 18:59 Weight 77.111 kg Other: # Voids 1 2 # Bowel Movements 1 2 - Labs CBC & Chem 7: 11/17/20 09:54 11/17/20 09:54 Assessment and Plan (1) Abdominal pain Current Visit: Yes Status: Acute Code(s): R10.9 - UNSPECIFIED ABDOMINAL PAIN SNOMED Code(s): 54208241
[2020-11-18 12:48] LABS: Potassium 3.8 mmol/L (3.5-5.1)
[2020-11-18 12:51] LABS: ALT 10 U/L (4-49); AST 35 U/L (17-59); African American GFR (CKD) >90 (>60 ml/min/1.73 sqM); Albumin 3.3 g/dL (3.5-5.0); Albumin/Globulin Ratio 1.4; Alkaline Phosphatase 263 U/L (38-126); Anion Gap 10 mmol/L; Blood Urea Nitrogen 10 mg/dL (9-20); Calcium 7.3 mg/dL (8.4-10.2); Carbon Dioxide 18 mmol/L (22-30); Chloride 110 mmol/L (98-107); Globulin 2.3 g/dL; Glucose 97 mg/dL (74-99); Non-African American GFR(CKD) >90 (>60 ml/min/1.73 sqM); Sodium 138 mmol/L (137-145); Total Protein 5.6 g/dL (6.3-8.2)
[2020-11-18 12:54] LABS: Anisocytosis Slight; HCT 27.2 % (39.0-53.0); HGB 8.8 gm/dL (13.0-17.5); Hypochromasia Slight; MCH 32.3 pg (25.0-35.0); MCHC 32.3 g/dL (31.0-37.0); Macrocytosis Slight; Mean Platelet Volume 7.8; Platelet Count 257 k/uL (150-450); Poikilocytosis Slight; RBC 2.72 m/uL (4.30-5.90); RDW 18.7 % (11.5-15.5); WBC 3.9 k/uL (3.8-10.6)
[2020-11-18 14:13] LABS: Band Neutrophils % 6 %; Eosinophils # (M) 0.12 k/uL (0-0.7); Lymphocytes # (M) 0.78 k/uL (1.0-4.8); Metamyelocytes # (M) 0.23 k/uL (0); Metamyelocytes % 6 %; Monocytes # (M) 0.27 k/uL (0-1.0); Myelocytes # (M) 0.39 k/uL (0); Myelocytes % 10 %; Neutrophils % (M) 47 %; Nucleated Red Blood Cells 0 /100 WBC (0-0); Promyelocytes # (M) 0.04 k/uL (0); Promyelocytes % 1 %; Total Cells Counted 100
[2020-11-18 14:14] LABS: Polychromasia Present; Spherocytes Present; Tear Drop Cells Present
[2020-11-18 14:15] LABS: RBC Fragments Present
[2020-11-18 14:55] VITALS: BMI 26.6
--- NOTE | 2020-11-18 17:55 | P.PN ---
Progress Note - Text Progress Note Date: 11/18/20 Chief Complaint: Abdominal pain This is a pleasant 84-year-old patient who follows with Dr. Germaine Shirley. Oncologist Dr. Law. Radiation oncologist Dr. Jeremias Tavarez. Patient was diagnosed posterior 3 years ago with prostate cancer. Patient did receive 2 courses of chemotherapy pills. Discontinued sometime ago. Of the cowboy finished [address] Tavarez. Was having lower back pain. Which is better. Patient has metastatic disease to the osseous structures. In the past patient's had: Possibly malignant polyp which had surgical treatment at the junction of the sigmoid colon and rectum. Ulcer received radiation treatment with some complications same. Had a baseline patient is bowel movement varies. Last week patient had some watery stools. For about one or 2 days. For last 2 days has had no bowel movement. Patient's abdomen is chronically distended. No nausea vomiting. No weight loss. Patient has motor extremity edema present intermittently. No shortness of breath. Patient is able to get around the house. No fever no chills no cough. Decrease appetite. Colostomy some abdominal pain. Abdominal x-ray and computed tomography scan of the ER does confirm small bowel obstruction. Patient's at the bedside. December 05: Patient had large bowel movement last night. Feeling better this morning. Seen by surgery. Diet advanced to full liquid. Review of systems: Was done for constitutional, cardiovascular, GI, pulmonary. relevant finding as above Active Medications Acetaminophen (Acetaminophen Tab 325 Mg Tab) 650 mg PO Q4HR PRN PRN Reason: Fever and/ or Pain Enoxaparin Sodium (Enoxaparin 60 Mg/0.6 Ml Syringe) 60 mg SQ Q12H [facility] Last Admin: 11/18/20 07:37 Dose: 60 mg Documented by: Sodium Chloride (Saline 0.9%) 1,000 mls @ 130 mls/hr IV .Q7H42M [facility] Last Admin: 11/18/20 11:37 Dose: 130 mls/hr Documented by: Ibuprofen (Ibuprofen 600 Mg Tab) 600 mg PO Q6HR PRN PRN Reason: Pain Isosorbide Mononitrate (Isosorbide Mononitrate Er 30 Mg Tab.Er.24h) 30 mg PO DAILY [facility] Last Admin: 11/18/20 07:37 Dose: 30 mg Documented by: Metoprolol Tartrate (Metoprolol Tartrate 12.5 Mg Tab) 12.5 mg PO BID [facility] Last Admin: 11/18/20 07:36 Dose: 12.5 mg Documented by: Naloxone HCl (Naloxone 0.4 Mg/Ml 1 Ml Vial) 0.2 mg IV Q2M PRN PRN Reason: Opioid Reversal Ondansetron HCl (Ondansetron 4 Mg/2 Ml Vial) 4 mg IVP Q8HR PRN PRN Reason: Nausea And Vomiting Pantoprazole Sodium (Pantoprazole 40 Mg Tablet) 40 mg PO DAILY@0730 [facility] Last Admin: 11/18/20 07:37 Dose: 40 mg Documented by: Tamsulosin HCl (Tamsulosin 0.4 Mg Cap.Er.24h) 0.4 mg PO HS [facility] Last Admin: 11/17/20 18:56 Dose: 0.4 mg Documented by: Tramadol HCl (Tramadol 50 Mg Tab) 50 mg PO Q6HR PRN PRN Reason: Breakthrough Pain Last Admin: 11/18/20 07:37 Dose: 50 mg Documented by: Past medical history to include: metastatic prostate cancer treated with chemotherapeutic pills and radiation treatment, BPH, atrial fibrillation, GERD Social history: Retired [employer]. . Former smoker. Alcohol rarely. Family history: Reviewed, noncontributory to presentation Physical examination: VITAL SIGNS: 97.6, 74, 16, 119/55, 97% room air GENERAL: BMI 25.1, laying in bed, awake EYES: Pupils equal. Conjunctiva normal. HEENT: External appearance of nose and ears normal, oral cavity dry mucous membranes. NECK: JVD not raised; masses not palpable. HEART: First and second heart sounds are normal; no edema. LUNGS: Respiratory rate normal; decreased breath sounds. ABDOMEN: Soft, decreased distention mildly tender, liver spleen not palpable, no masses palpable. PSYCH: Alert and oriented x3; mood and affect normal. MUSCULAR skeletal: Evidence of OA INVESTIGATIONS, reviewed in the clinical context: November 18: WBC 3.9 hemoglobin 8.8 platelets 257 potassium 3.8 creatinine 0.42. Abdominal x-ray: Dilated small bowel loops with air-fluid levels. WBC 2.8 hemoglobin 9.5 platelets 266 potassium 4.1 creatinine 0.48 glucose 103 alkaline phosphatase 275 amylase less than 30 lipase 13 UA positive for ketones 2+ EKG tracing personally reviewed by me-atrial fibrillation, rate 65 Chest x-ray films personally reviewed by me: Hyperinflation. No obvious infiltrate KUB films personally reviewed by me: Dilated small bowel with air-fluid level Computed tomography scan abdomen and pelvis with contrast: Gallbladder mildly hydropic 4.4 cm, atrophic pancreas, questionable pancreatic head lesion, numerous dilated fluid-filled small bowel loops mid and lower abdomen up to 3.4 cm with a transition point. Distal ileum and colon are collapsed. Sigmoid diverticulosis. Mild ascites. DJD. Diffuse sclerosis. Assessment and plan: -Acute distal small bowel ileus Patient had a large bowel movement last night. Diet advanced to full liquid. Increase activity. -Metastatic prostate cancer to the bones. Patient has received chemotherapeutic pills in the past. Recent radiation treatment. Consult Dr. Escalante -Persistent atrial fibrillation, rate controlled Hold off eliquis. Use Lovenox 60 mg subcu every 12. Telemetry. Lopressor 12.5 by mouth twice a day -BPH Flomax 0.4 mg daily at bedtime -GERD Omeprazole 20 mg daily -Bony pain due to metastatic disease Percocet 10 every 6 when necessary Resume patient's eliquis tonight. DC Lovenox. Diet advanced to full liquid. Increase activity. Discussed with patient.
--- NOTE | 2020-11-18 20:25 | P.CONS ---
History of Present Illness - Reason for Consult Consult date: 11/18/20 Metastatic Prostate Cancer Requesting physician: Diego Manzano - Chief Complaint Abdominal Pain - History of Present Illness This is a very nice patient who was initially diagnosed with prostate cancer in 2018 when he had rising PSA,transrectal biopsies of prostate done on 02/13/2018,confirmed the diagnosis of adenocarcinoma,russ 10 (5+5),at the time of diagnosis he had metastatic disease to the bone. He was initially started on zytiga/prednisone,along with LHRH agonist and xgeva,with intiall good response,his PSA was down less than 0.1,then was up to 0.1 in 12/2018 and up to 0.5 in February/2019,in April/2019,zytiga/prednisone were discontinued and he was started on erleada by Dr Henderson,repeat PSA on 06/16/2019n was up to 1.9. He had a repeat bone scan on 05/11/2019,which revealed multiple osseous lesions. he had a CT scan of chest 06/15/2019 (for dyspnea),which revealed no pulmonary mets. he has a history of rectal cancer in 1984,he had chemoradiation at that time. He is on leupron injection through Dr Boswell office. On 09/02/2019,repeat CT scan of abdomen/pelvis revealed slight progression of osseous lesion at L2,no visceral mets. Genetic testing were negative for BRCA mutation. On 10/14/2019,PSA was 3.9. He was evaluated by Dr Morales at [facility] for possible clinical trials and had a bone biopsy,however,he then declined clinical trial and taxotere chemotherapy was recommended,he also had a cystoscopy and invasion of his bladder from prostate cancer was identified. He was also offered radium 223,however,he declined it On 04/29/2020,CT scan of CAP revealed no visceral lesions,progression of osseous lesions. In April/2020,when PSA went up to 40,he initially decided to proceed with taxotere but them he decided to cancel it. He feels tired,relatively active,he has some lower back pain,controllled with OTC meds,he continues to have decline in short term memoray,he continues on xgeva and leupron through DR Boswell office. [facility],on best suppotive care only,they decided not to pursue any chemotherapy at last visit with Dr. Law. They discussed palliative XRT to back,however,they wanted to wait for that. I instructed him to stay away fro NSAID,he is on eliquis,may use tylenol for pain management. He presents with abdominal pain, distention followed by diarrhea. He was taking antidiarrheals. Imaging of abdomen revealed partial SBO versus ileus. Currently on bowel rest and general surgery is following. Review of Systems All systems: negative Constitutional: Reports as per HPI Past Medical History Additional Past Medical History / Comment(s): prostate CA (current inoperable), colon/rectal CA (1984) History of Any Multi-Drug Resistant Organisms: None Reported Past Surgical History: Hernia Repair, Orthopedic Surgery Additional Past Surgical History / Comment(s): colon/rectal surgery 1984, 2 polps removed Past Anesthesia/Blood Transfusion Reactions: No Reported Reaction Past Psychological History: No Psychological Hx Reported Smoking Status: Former smoker Past Alcohol Use History: Occasional Past Drug Use History: None Reported - Past Family History Father Family Medical History: Myocardial Infarction ([place]) Mother Family Medical History: CVA/TIA Medications and Allergies Home Medications Medication Instructions Recorded Confirmed Type Cyanocobalamin (Vitamin B-12) 1,000 mcg PO DAILY 12/23/18 11/17/20 History [Vitamin B-12] Tamsulosin HCl [Flomax] 0.4 mg PO HS 12/23/18 11/17/20 History Apixaban [Eliquis] 5 mg PO BID 11/17/20 11/17/20 History Isosorbide Mononitrate ER [Imdur] 30 mg PO DAILY 11/17/20 11/17/20 History Loperamide HCl [Imodium A-D] 2 - 4 mg PO QID PRN 11/17/20 11/17/20 History Metoprolol Tartrate [Lopressor] 12.5 mg PO BID 11/17/20 11/17/20 History Omeprazole 20 mg PO DAILY 11/17/20 11/17/20 History oxyCODONE-APAP 10-325MG [Percocet 1 tab PO Q6H PRN 11/17/20 11/17/20 History 10-325 mg] Allergies Allergy/AdvReac Type Severity Reaction Status Date / Time No Known Allergies Allergy Verified 11/17/20 11:26 Physical Exam Vitals: Vital Signs Temp Pulse Pulse Resp BP BP Pulse Ox 11/18/20 01:56 97.6 F 79 16 131/60 98 11/17/20 19:23 98.2 F 77 16 118/60 99 11/17/20 14:18 18 11/17/20 14:12 97.5 F L 83 16 126/67 99 11/17/20 13:32 97.9 F 73 18 118/68 99 11/17/20 13:02 71 16 117/73 97 11/17/20 10:50 75 16 111/65 98 11/17/20 09:13 97.7 F 85 18 117/60 97 Intake and Output 11/17/20 11/18/20 11/18/20 22:59 06:59 14:59 Other: # Voids 1 2 # Bowel Movements 1 2 - Constitutional General appearance: cooperative, no acute distress - EENT Eyes: EOMI ENT: hard of hearing, NA/AT - Neck Neck: normal ROM - Respiratory Respiratory: bilateral: diminished - Cardiovascular Rhythm: irregularly irregular - Gastrointestinal General gastrointestinal: distended, soft - Integumentary Integumentary: pale - Neurologic Neurologic: CNII-XII intact - Musculoskeletal Musculoskeletal: generalized weakness - Psychiatric Psychiatric: A&O x's 3, appropriate affect, intact judgment & insight Results CBC & Chem 7: 11/17/20 09:54 11/17/20 09:54 Labs: Abnormal Lab Results - Last 24 Hours (Table) 11/17/20 11/17/20 11/17/20 Range/Units 09:54 09:54 09:54 WBC 2.8 L (3.8-10.6) k/uL RBC 2.88 L (4.30-5.90) m/uL Hgb 9.5 L (13.0-17.5) gm/dL Hct 28.8 L (39.0-53.0) % RDW 18.7 H (11.5-15.5) % Lymphocytes # (Manual) 0.78 L (1.0-4.8) k/uL Metamyelocytes # (Man) 0.06 H (0) k/uL Myelocytes # (Manual) 0.03 H (0) k/uL Nucleated RBCs 2 H (0-0) /100 WBC Sodium 136 L (137-145) mmol/L Carbon Dioxide 19 L (22-30) mmol/L Creatinine 0.48 L (0.66-1.25) mg/dL Glucose 103 H (74-99) mg/dL Calcium 7.8 L (8.4-10.2) mg/dL Alkaline Phosphatase 275 H (38-126) U/L Total Protein 6.0 L (6.3-8.2) g/dL Amylase <30 L (30-110) U/L Lipase 13 L (23-300) U/L Urine Protein Trace H (Negative) Urine Ketones 2+ H (Negative) Abdominal x-ray: report reviewed CT scan - abdomen: report reviewed CT scan - pelvis: report reviewed Assessment and Plan (1) Prostate cancer metastatic to bone Current Visit: Yes Status: Acute Code(s): C61 - MALIGNANT NEOPLASM OF PROSTATE; C79.51 - SECONDARY MALIGNANT NEOPLASM OF BONE SNOMED Code(s): 414093401 (2) Normochromic anemia Current Visit: Yes Status: Acute Code(s): D64.9 - ANEMIA, UNSPECIFIED SNOMED Code(s): 84281284 (3) Leukopenia Current Visit: Yes Status: Acute Code(s): D72.819 - DECREASED WHITE BLOOD CELL COUNT, UNSPECIFIED SNOMED Code(s): 55817785 (4) Small bowel obstruction Current Visit: Yes Status: Acute Code(s): K56.609 - UNSP INTESTNL OBST, UNSP TO PARTIAL VERSUS COMPLETE OBST SNOMED Code(s): 974850294 Plan: Assessment and Recommendations: Cytopenias: - Likely secondary to metastatic disease to bone - Will check Iron levels with anticoagulation use to ensure no microscopic bleeding given the addition of NSAIDS this admission as an attempt to limit bear cotic use - Recheck CBC today Small Bowel Obstruction versus Ileus: - Bowel rest per General surgery Metastatic Prostate Cancer to Bone: - Patient has refused treatment at this time - Will re-offer radiation therapy palliative for pain management - Recheck PSA Thank you for allowing us to participate in the care of this patient
[2020-11-18] MEDS: LACTATED RINGERS 1,000 ML IV SCH (20:35)
[2020-11-18] MEDS: TAMSULOSIN 0.4 MG CAP.ER.24H PO SCH (20:36)
[2020-11-18] MEDS: APIXABAN 5 MG TAB PO SCH (20:36)
[2020-11-19 02:52] LABS: % Iron Saturation 35.77 (15.00-50.00); Iron 93 ug/dL (65-175); Total Iron Binding Capacity 260 ug/dL (228-460)
[2020-11-19 03:01] LABS: Folate, Serum 7.7 ng/mL
[2020-11-19 04:30] LABS: Ferritin 881.9 ng/mL (22.0-322.0)
--- NOTE | 2020-11-19 07:46 | XR ---
EXAMINATION TYPE: XR abdomen 2V DATE OF EXAM: 11/19/2020 CLINICAL DATA: 84-year-old male follow-up ileus, [facility] COMPARISON: 11/18/2020 FINDINGS: Patchy left basilar opacity noted. No evidence for free intraperitoneal air. Continued multiple small bowel air-fluid levels. No bowel dilatation currently measures up to 4.8 cm versus 4.2 cm, previously. There is a relative paucity of colonic air. Osteosclerosis compatible with known osseous metastatic disease. IMPRESSION: 1. Persistent dilated small bowel loops with air-fluid levels. Small bowel loops measure up to 4.8 cm now versus 4.2 cm, previously. Differential includes both ileus and small bowel obstruction. 2. Some patchy left basilar opacity, probable atelectasis versus infiltrate. 3. Known diffuse osseous metastatic disease.
[2020-11-19] MEDS: APIXABAN 5 MG TAB PO SCH ×2 (08:38→20:44)
[2020-11-19] MEDS: METOPROLOL TARTRATE 12.5 MG TAB PO SCH ×2 (08:38→20:44)
[2020-11-19] MEDS: PANTOPRAZOLE 40 MG TABLET PO SCH (08:39)
[2020-11-19] MEDS: CYANOCOBALAMIN 500 MCG TAB PO SCH (08:39)
[2020-11-19] MEDS: ISOSORBIDE MONONITRATE ER 30 MG TAB.ER.24H PO SCH (08:39)
[2020-11-19 09:11] LABS: HCT 23.3 % (39.6-50.0); HGB 7.2 g/dL (13.0-17.0); MCH 31.4 pg (27.0-32.0); MCHC 30.9 g/dL (32.0-37.0); MCV 101.7 fL (80.0-97.0); Mean Platelet Volume 9.9 fL (9.5-12.2); Platelet Count 198 X 10*3/uL (140-440); RBC 2.29 X 10*6/uL (4.40-5.60); RDW 19.2 % (11.5-14.5); WBC 4.41 X 10*3/uL (4.50-10.00)
[2020-11-19 09:53] LABS: African American GFR (CKD) 128.2 (60.0-200.0); Albumin 3.4 g/dL (3.80-4.90); Anion Gap 9.5 mmol/L (4.00-12.00); BUN/Creat Ratio 22.5 Ratio (12.00-20.00); Calcium 7.2 mg/dL (8.7-10.3); Carbon Dioxide 20.5 mmol/L (21.6-31.8); Globulin 1.7 g/dL (1.6-3.3); Non-African American GFR(CKD) 110.6 (60.0-200.0); Potassium 3.5 mmol/L (3.5-5.5); Total Bilirubin 0.7 mg/dL (0.3-1.2); Total Protein 5.1 g/dL (6.2-8.2)
[2020-11-19 10:22] LABS: Basophils # (M) 0 X 10*3/uL (0.00-0.10); Eosinophils # (M) 0.09 X 10*3/uL (0.04-0.35); Lymphocytes # (M) 1.15 X 10*3/uL (0.90-5.00); Metamyelocytes % 5 % (0-0); Monocytes # (M) 0.31 X 10*3/uL (0.20-1.00); Myelocytes % 5 % (0-0); Neutrophils # (M) 2.43 X 10*3/uL (2.00-8.90); Neutrophils % (M) 55 %; Tear Drop Cells 2+
--- NOTE | 2020-11-19 12:40 | P.PN ---
Subjective Progress Note Date: 11/19/20 CHIEF COMPLAINT: Bowel obstruction HISTORY OF PRESENT ILLNESS: The patient is a 84-year-old male with metastatic prostate cancer presented with bowel obstruction. He is tolerating full liquid diet. is at bedsides. He reports last night having sharp epigastric right upper quadrant cramping after drinking cold water that was 8/10 and transient. His abdominal pain is resolved. He had two more bowel movements after his Xray this morning. He denies nausea or vomiting. ROS: No fevers or chills. No new chest pain. No productive sputum PHYSICAL EXAM: VITAL SIGNS: Reviewed CONSTITUTIONAL: Well developed and in no acute distress. EYES: Conjuctivae without sclera icterus. Extraocular movements grossly intact. HEAD, EARS, NOSE, THROAT: Moist buccal mucosa. Head is atraumatic, normoceph alic. Hears conversational speech. No nasal drainage. NECK: No gross thyroidomegaly. No jugular venous distention. RESPIRATORY: Non-labored respirations and equal bilateral excursions. CARDIOVASCULAR: Palpable 2+ radial pulses. ABDOMEN: No peritonitis. MUSCULOSKELETAL: No gross deformity of the lower extremities noted. No clubbing. No cyanosis. SKIN: Good skin turgor. Well perfused. NEUROLOGIC: Cranial nerves II through XII grossly intact. No focal or lateralizing signs. PSYCH: Appropriate affect. Alert and oriented to person, place and time. CLINICAL LABS: White blood cell count low 4.4. Hemoglobin down 8.8-7.2. Creatinine level 0.4 STUDIES: AXR shows small bowel dilation 4.8 cm per report. ASSESSMENT: 1. Small bowel obstruction metastatic cancer PLAN: 1. His symptoms improved following his xray this morning. 2. Repeat XR of the abdomen for tomorrow. 3. Continue current diet. 4. Patient advised to communicated bowel habits with nursing team for proper r ecording. 5. All questions addressed with patient and at bedside. Objective - Vital Signs Vital signs: Vital Signs Temp 97.4 F L 11/19/20 07:47 Pulse 73 11/19/20 07:47 Resp 16 11/19/20 07:47 BP 137/70 11/19/20 07:47 Pulse Ox 100 11/19/20 07:47 Intake & Output 11/18/20 11/19/20 11/19/20 18:59 06:59 18:59 Intake Total 100 Balance 100 Weight 82 kg Intake: Oral 100 Other: # Voids 3 0 # Bowel Movements 0 - Labs CBC & Chem 7: 11/19/20 05:30 11/19/20 05:30 Labs: Abnormal Lab Results - Last 24 Hours (Table) 11/18/20 11/18/20 11/19/20 Range/Units 12:15 12:15 05:30 WBC 4.41 L (4.50-10.00) X 10*3/uL RBC 2.72 L 2.29 L (4.30-5.90) m/uL Hgb 8.8 L 7.2 L (13.0-17.5) gm/dL Hct 27.2 L 23.3 L (39.0-53.0) % MCV 101.7 H (80.0-97.0) fL MCHC 30.9 L (32.0-37.0) g/dL RDW 18.7 H 19.2 H (11.5-15.5) % Absolute Nucleated RBC 0.07 H (0.00-0.00) X 10*3/uL Metamyelocytes % 5 H (0-0) % Myelocytes % 5 H (0-0) % Lymphocytes # (Manual) 0.78 L (1.0-4.8) k/uL Metamyelocytes # (Man) 0.23 H (0) k/uL Myelocytes # (Manual) 0.39 H (0) k/uL Promyelocytes # (Man) 0.04 H (0) k/uL NRBC/100 WBC Diff 1.6 H (0.0-0.0) /100 WBCS Chloride 110 H (98-107) mmol/L Carbon Dioxide 18 L (22-30) mmol/L Creatinine 0.42 L (0.66-1.25) mg/dL BUN/Creatinine Ratio (12.00-20.00) Ratio Calcium 7.3 L (8.4-10.2) mg/dL Ferritin 881.9 H (22.0-322.0) ng/mL Alkaline Phosphatase 263 H (38-126) U/L Total Protein 5.6 L (6.3-8.2) g/dL Albumin 3.3 L (3.5-5.0) g/dL Vitamin B12 992.0 H (200.0-944.0) pg/mL 11/19/20 Range/Units 05:30 WBC (4.50-10.00) X 10*3/uL RBC (4.30-5.90) m/uL Hgb (13.0-17.5) gm/dL Hct (39.0-53.0) % MCV (80.0-97.0) fL MCHC (32.0-37.0) g/dL RDW (11.5-15.5) % Absolute Nucleated RBC (0.00-0.00) X 10*3/uL Metamyelocytes % (0-0) % Myelocytes % (0-0) % Lymphocytes # (Manual) (1.0-4.8) k/uL Metamyelocytes # (Man) (0) k/uL Myelocytes # (Manual) (0) k/uL Promyelocytes # (Man) (0) k/uL NRBC/100 WBC Diff (0.0-0.0) /100 WBCS Chloride 110 H (98-107) mmol/L Carbon Dioxide 20.5 L (22-30) mmol/L Creatinine 0.4 L (0.66-1.25) mg/dL BUN/Creatinine Ratio 22.50 H (12.00-20.00) Ratio Calcium 7.2 L (8.4-10.2) mg/dL Ferritin (22.0-322.0) ng/mL Alkaline Phosphatase 252 H (38-126) U/L Total Protein 5.1 L (6.3-8.2) g/dL Albumin 3.40 L (3.5-5.0) g/dL Vitamin B12 (200.0-944.0) pg/mL
--- NOTE | 2020-11-19 14:22 | P.PN ---
Progress Note - Text Progress Note Date: 11/19/20 Chief Complaint: Abdominal pain This is a pleasant 84-year-old patient who follows with Dr. Germaine Shirley. Oncologist Dr. Law. Radiation oncologist Dr. Jeremias Tavarez. Patient was diagnosed posterior 3 years ago with prostate cancer. Patient did receive 2 courses of chemotherapy pills. Discontinued sometime ago. Of the cowboy finished [address] Tavarez. Was having lower back pain. Which is better. Patient has metastatic disease to the osseous structures. In the past patient's had: Possibly malignant polyp which had surgical treatment at the junction of the sigmoid colon and rectum. Ulcer received radiation treatment with some complications same. Had a baseline patient is bowel movement varies. Last week patient had some watery stools. For about one or 2 days. For last 2 days has had no bowel movement. Patient's abdomen is chronically distended. No nausea vomiting. No weight loss. Patient has motor extremity edema present intermittently. No shortness of breath. Patient is able to get around the house. No fever no chills no cough. Decrease appetite. Colostomy some abdominal pain. Abdominal x-ray and computed tomography scan of the ER does confirm small bowel obstruction. Patient's at the bedside. November 18: Patient had large bowel movement last night. Feeling better this morning. Seen by surgery. Diet advanced to full liquid. November 19: Had a small more movement today. Tolerating full liquid diet.. Slight abdominal discomfort. Abdominal x-ray still showing bowel obstruction. Review of systems: Was done for constitutional, cardiovascular, GI, pulmonary. relevant finding as above Active Medications Acetaminophen (Acetaminophen Tab 325 Mg Tab) 650 mg PO Q4HR PRN PRN Reason: Fever and/ or Pain Apixaban (Apixaban 5 Mg Tab) 5 mg PO BID [facility]; Protocol Last Admin: 11/19/20 08:38 Dose: 5 mg Documented by: Cyanocobalamin (Cyanocobalamin 500 Mcg Tab) 1,000 mcg PO DAILY [facility] Last Admin: 11/19/20 08:39 Dose: 1,000 mcg Documented by: Lactated Ringer's (Lactated Ringers) 1,000 mls @ 75 mls/hr IV .[id number] [facility] Last Admin: 11/18/20 20:35 Dose: 75 mls/hr Documented by: Ibuprofen (Ibuprofen 600 Mg Tab) 600 mg PO Q6HR PRN PRN Reason: Pain Isosorbide Mononitrate (Isosorbide Mononitrate Er 30 Mg Tab.Er.24h) 30 mg PO DAILY [facility] Last Admin: 11/19/20 08:39 Dose: 30 mg Documented by: Metoprolol Tartrate (Metoprolol Tartrate 12.5 Mg Tab) 12.5 mg PO BID [facility] Last Admin: 11/19/20 08:38 Dose: 12.5 mg Documented by: Naloxone HCl (Naloxone 0.4 Mg/Ml 1 Ml Vial) 0.2 mg IV Q2M PRN PRN Reason: Opioid Reversal Ondansetron HCl (Ondansetron 4 Mg/2 Ml Vial) 4 mg IVP Q8HR PRN PRN Reason: Nausea And Vomiting Pantoprazole Sodium (Pantoprazole 40 Mg Tablet) 40 mg PO DAILY@0730 [facility] Last Admin: 11/19/20 08:39 Dose: 40 mg Documented by: Tamsulosin HCl (Tamsulosin 0.4 Mg Cap.Er.24h) 0.4 mg PO HS [facility] Last Admin: 11/18/20 20:36 Dose: 0.4 mg Documented by: Tramadol HCl (Tramadol 50 Mg Tab) 50 mg PO Q6HR PRN PRN Reason: Breakthrough Pain Last Admin: 11/18/20 17:55 Dose: 50 mg Documented by: Past medical history to include: metastatic prostate cancer treated with chemotherapeutic pills and radiation treatment, BPH, atrial fibrillation, GERD Social history: Retired [employer]. . Former smoker. Alcohol rarely. Family history: Reviewed, noncontributory to presentation Physical examination: VITAL SIGNS: 97.4, 78, 16, 139/58, 99% room air GENERAL: laying in bed, awake, comfortable EYES: Pupils equal. Conjunctiva normal. HEENT: External appearance of nose and ears normal, oral cavity dry mucous membranes. NECK: JVD not raised; masses not palpable. HEART: First and second heart sounds are normal; no edema. LUNGS: Respiratory rate normal; decreased breath sounds. ABDOMEN: Soft, mild distention mildly tender, liver spleen not palpable, no masses palpable. PSYCH: Alert and oriented x3; mood and affect normal. MUSCULAR skeletal: Evidence of OA INVESTIGATIONS, reviewed in the clinical context: November 19: WBC 4.4 hemoglobin 7.2 potassium 3.5 creatinine 0.4. Abdominal x- ray: Dilated small bowel loops with air-fluid levels November 18: WBC 3.9 hemoglobin 8.8 platelets 257 potassium 3.8 creatinine 0.42. Abdominal x-ray: Dilated small bowel loops with air-fluid levels. WBC 2.8 hemoglobin 9.5 platelets 266 potassium 4.1 creatinine 0.48 glucose 103 alkaline phosphatase 275 amylase less than 30 lipase 13 UA positive for ketones 2+ EKG tracing personally reviewed by me-atrial fibrillation, rate 65 Chest x-ray films personally reviewed by me: Hyperinflation. No obvious infiltrate KUB films personally reviewed by me: Dilated small bowel with air-fluid level Computed tomography scan abdomen and pelvis with contrast: Gallbladder mildly hydropic 4.4 cm, atrophic pancreas, questionable pancreatic head lesion, numerous dilated fluid-filled small bowel loops mid and lower abdomen up to 3.4 cm with a transition point. Distal ileum and colon are collapsed. Sigmoid diverticulosis. Mild ascites. DJD. Diffuse sclerosis. Assessment and plan: -Acute distal small bowel ileus : Slow to respond radiologically Patient been having bowel movements. Also tolerating some diet. Follow with surgery -Metastatic prostate cancer to the bones. Patient has received chemotherapeutic pills in the past. Recent radiation treatment. Consult Dr. Escalante -Persistent atrial fibrillation, rate controlled eliquis. Telemetry. Lopressor 12.5 by mouth twice a day -BPH Flomax 0.4 mg daily at bedtime -GERD Omeprazole 20 mg daily -Bony pain due to metastatic disease Percocet 10 every 6 when necessary Continue current medication treatment plan. Keep on a full liquid diet. Increase activity as tolerated.
[2020-11-19] MEDS: LACTATED RINGERS 1,000 ML IV SCH ×2 (16:20→20:06)
[2020-11-19] MEDS: traMADol 50 MG TAB PO PRN (20:44)
[2020-11-19] MEDS: TAMSULOSIN 0.4 MG CAP.ER.24H PO SCH (20:44)
[2020-11-20] MEDS: ISOSORBIDE MONONITRATE ER 30 MG TAB.ER.24H PO SCH (08:23)
[2020-11-20] MEDS: CYANOCOBALAMIN 500 MCG TAB PO SCH ×2 (08:23→08:27)
[2020-11-20] MEDS: METOPROLOL TARTRATE 12.5 MG TAB PO SCH ×2 (08:23→20:20)
[2020-11-20] MEDS: PANTOPRAZOLE 40 MG TABLET PO SCH (08:23)
[2020-11-20] MEDS: traMADol 50 MG TAB PO PRN (08:25)
[2020-11-20 11:32] LABS: Anisocytosis Slight; Basophils # (A) 0.1 k/uL (0-0.2); Basophils % (A) 1 %; Eosinophils # (A) 0.1 k/uL (0-0.7); Eosinophils % (A) 1 %; HCT 26.1 % (39.0-53.0); HGB 8.7 gm/dL (13.0-17.5); Hypochromasia Slight; Lymphocytes # (A) 1.1 k/uL (1.0-4.8); Lymphocytes % (A) 15 %; MCH 33.3 pg (25.0-35.0); MCHC 33.4 g/dL (31.0-37.0); MCV 99.6 fL (80.0-100.0); Macrocytosis Slight; Mean Platelet Volume 7.5; Monocytes # (A) 0.4 k/uL (0-1.0); Monocytes % (A) 6 %; Neutrophils # (A) 5.3 k/uL (1.3-7.7); Neutrophils % (A) 75 %; Platelet Count 263 k/uL (150-450); Poikilocytosis Slight; RBC 2.62 m/uL (4.30-5.90); RDW 19.2 % (11.5-15.5)
[2020-11-20 11:36] LABS: ALT 12 U/L (4-49); AST 38 U/L (17-59); African American GFR (CKD) >90 (>60 ml/min/1.73 sqM); Albumin 3.5 g/dL (3.5-5.0); Albumin/Globulin Ratio 1.5; Alkaline Phosphatase 289 U/L (38-126); Anion Gap 9 mmol/L; Blood Urea Nitrogen 8 mg/dL (9-20); Calcium 8.8 mg/dL (8.4-10.2); Carbon Dioxide 22 mmol/L (22-30); Chloride 108 mmol/L (98-107); Globulin 2.4 g/dL; Glucose 113 mg/dL (74-99); Non-African American GFR(CKD) >90 (>60 ml/min/1.73 sqM); Potassium 3.9 mmol/L (3.5-5.1); Sodium 139 mmol/L (137-145); Total Bilirubin 0.8 mg/dL (0.2-1.3); Total Protein 5.9 g/dL (6.3-8.2)
[2020-11-20 11:49] LABS: Band Neutrophils % 11 %; Eosinophils # (M) 0.21 k/uL (0-0.7); Lymphocytes # (M) 0.41 k/uL (1.0-4.8); Metamyelocytes # (M) 0.69 k/uL (0); Metamyelocytes % 10 %; Monocytes # (M) 0.97 k/uL (0-1.0); Myelocytes # (M) 0.28 k/uL (0); Myelocytes % 4 %; Neutrophils % (M) 51 %; Nucleated Red Blood Cells 3 /100 WBC (0-0); Polychromasia Present; Promyelocytes # (M) 0.07 k/uL (0); Promyelocytes % 1 %; Tear Drop Cells Present; Total Cells Counted 100; WBC 6.9 k/uL (3.8-10.6)
--- NOTE | 2020-11-20 14:14 | P.PN ---
Progress Note - Text Progress Note Date: 11/20/20 Chief Complaint: Abdominal pain This is a pleasant 84-year-old patient who follows with Dr. Germaine Shirley. Oncologist Dr. Law. Radiation oncologist Dr. Jeremias Tavarez. Patient was diagnosed posterior 3 years ago with prostate cancer. Patient did receive 2 courses of chemotherapy pills. Discontinued sometime ago. Of the cowboy finished [address] Tavarez. Was having lower back pain. Which is better. Patient has metastatic disease to the osseous structures. In the past patient's had: Possibly malignant polyp which had surgical treatment at the junction of the sigmoid colon and rectum. Ulcer received radiation treatment with some complications same. Had a baseline patient is bowel movement varies. Last week patient had some watery stools. For about one or 2 days. For last 2 days has had no bowel movement. Patient's abdomen is chronically distended. No nausea vomiting. No weight loss. Patient has motor extremity edema present intermittently. No shortness of breath. Patient is able to get around the house. No fever no chills no cough. Decrease appetite. Colostomy some abdominal pain. Abdominal x-ray and computed tomography scan of the ER does confirm small bowel obstruction. Patient's at the bedside. November 18: Patient had large bowel movement last night. Feeling better this morning. Seen by surgery. Diet advanced to full liquid. November 19: Had a small more movement today. Tolerating full liquid diet.. Slight abdominal discomfort. Abdominal x-ray still showing bowel obstruction. November 20: Intermittent abdominal pain. Some loose and formed stools. On full liquid diet. Ambulatory in the room. present. Discussed with the patient and . Review of systems: Was done for constitutional, cardiovascular, GI, pulmonary. relevant finding as above Active Medications Acetaminophen (Acetaminophen Tab 325 Mg Tab) 650 mg PO Q4HR PRN PRN Reason: Fever and/ or Pain Apixaban (Apixaban 5 Mg Tab) 5 mg PO BID [facility]; Protocol Last Admin: 11/19/20 20:44 Dose: 5 mg Documented by: Cyanocobalamin (Cyanocobalamin 500 Mcg Tab) 1,000 mcg PO DAILY [facility] Last Admin: 11/20/20 08:27 Dose: Not Given Documented by: Lactated Ringer's (Lactated Ringers) 1,000 mls @ 75 mls/hr IV .[id number] [facility] Last Admin: 11/19/20 20:06 Dose: Not Given Documented by: Ibuprofen (Ibuprofen 600 Mg Tab) 600 mg PO Q6HR PRN PRN Reason: Pain Isosorbide Mononitrate (Isosorbide Mononitrate Er 30 Mg Tab.Er.24h) 30 mg PO DAILY [facility] Last Admin: 11/20/20 08:23 Dose: 30 mg Documented by: Metoprolol Tartrate (Metoprolol Tartrate 12.5 Mg Tab) 12.5 mg PO BID [facility] Last Admin: 11/20/20 08:23 Dose: 12.5 mg Documented by: Naloxone HCl (Naloxone 0.4 Mg/Ml 1 Ml Vial) 0.2 mg IV Q2M PRN PRN Reason: Opioid Reversal Ondansetron HCl (Ondansetron 4 Mg/2 Ml Vial) 4 mg IVP Q8HR PRN PRN Reason: Nausea And Vomiting Pantoprazole Sodium (Pantoprazole 40 Mg Tablet) 40 mg PO DAILY@0730 [facility] Last Admin: 11/20/20 08:23 Dose: 40 mg Documented by: Tamsulosin HCl (Tamsulosin 0.4 Mg Cap.Er.24h) 0.4 mg PO HS [facility] Last Admin: 11/19/20 20:44 Dose: 0.4 mg Documented by: Tramadol HCl (Tramadol 50 Mg Tab) 50 mg PO Q6HR PRN PRN Reason: Breakthrough Pain Last Admin: 11/20/20 08:25 Dose: 50 mg Documented by: Past medical history to include: metastatic prostate cancer treated with chemotherapeutic pills and radiation treatment, BPH, atrial fibrillation, GERD Social history: Retired [employer]. . Former smoker. Alcohol rarely. Family history: Reviewed, noncontributory to presentation Physical examination: VITAL SIGNS: 98, 73, 16, 1 33 x 61, 98% room air GENERAL: Sitting up, awake, comfortable EYES: Pupils equal. Conjunctiva normal. HEENT: External appearance of nose and ears normal, oral cavity dry mucous membranes. NECK: JVD not raised; masses not palpable. HEART: First and second heart sounds are normal; no edema. LUNGS: Respiratory rate normal; decreased breath sounds. ABDOMEN: Soft, mild distention mildly tender, liver spleen not palpable, no masses palpable. PSYCH: Alert and oriented x3; mood and affect normal. MUSCULAR skeletal: Evidence of OA INVESTIGATIONS, reviewed in the clinical context: November 20: WBC 6.9 hemoglobin 8.7 potassium 3.9 creatinine 0.456. Abdominal x- ray: Dilated small bowel loops with some air-fluid levels. Possible improvement November 19: WBC 4.4 hemoglobin 7.2 potassium 3.5 creatinine 0.4. Abdominal x- ray: Dilated small bowel loops with air-fluid levels November 18: WBC 3.9 hemoglobin 8.8 platelets 257 potassium 3.8 creatinine 0.42. Abdominal x-ray: Dilated small bowel loops with air-fluid levels. WBC 2.8 hemoglobin 9.5 platelets 266 potassium 4.1 creatinine 0.48 glucose 103 alkaline phosphatase 275 amylase less than 30 lipase 13 UA positive for ketones 2+ EKG tracing personally reviewed by me-atrial fibrillation, rate 65 Chest x-ray films personally reviewed by me: Hyperinflation. No obvious infiltrate KUB films personally reviewed by me: Dilated small bowel with air-fluid level Computed tomography scan abdomen and pelvis with contrast: Gallbladder mildly hydropic 4.4 cm, atrophic pancreas, questionable pancreatic head lesion, numerous dilated fluid-filled small bowel loops mid and lower abdomen up to 3.4 cm with a transition point. Distal ileum and colon are collapsed. Sigmoid diverticulosis. Mild ascites. DJD. Diffuse sclerosis. Assessment and plan: -Acute distal small bowel ileus : Slow to respond radiologically Patient been having bowel movements. Also tolerating some diet. Follow with surgery -Metastatic prostate cancer to the bones. Patient has received chemotherapeutic pills in the past. Recent radiation treatment. Consult Dr. Escalante -Persistent atrial fibrillation, rate controlled eliquis. Telemetry. Lopressor 12.5 by mouth twice a day -BPH Flomax 0.4 mg daily at bedtime -GERD Omeprazole 20 mg daily -Bony pain due to metastatic disease Percocet 10 every 6 when necessary Discussed with the patient and . At this point no surgery indicated as such . Follow clinically. For bowel spasm and Bentyl. K pad for hip pain. Activity as tolerated.
[2020-11-20] MEDS: APIXABAN 5 MG TAB PO SCH ×2 (14:45→20:21)
--- NOTE | 2020-11-20 14:56 | XR ---
EXAMINATION TYPE: XR abdomen 2V DATE OF EXAM: 11/20/2020 COMPARISON: 11/19/2020 HISTORY: 84 years Male. STUDY INDICATION GIVEN: SBO . TECHNIQUE: Supine and upright abdominal radiographs 2 views FINDINGS AND IMPRESSION: Persistent gaseous distention and dilatation of small and large bowel loops, more evident in the smal l bowel loops. Air-fluid levels again seen in the right lower abdomen. Small amount of air seen over the rectum suggesting passage of GI lumenal material into the rectum.No evidence of pneumoperitoneum. Increased density in the osseous structures consistent with known metastasis. Findings again concerning for high-grade small bowel structure without significant change in appearan ce since abdominal radiograph dated 11/19/2020.
[2020-11-20] MEDS: DICYCLOMINE 10 MG CAP PO SCH ×2 (15:38→20:20)
--- NOTE | 2020-11-20 19:19 | P.PN ---
Subjective Progress Note Date: 11/20/20 CHIEF COMPLAINT: Bowel obstruction HISTORY OF PRESENT ILLNESS: The patient is a 84-year-old male with metastatic prostate cancer presented with bowel obstruction. His abdominal pain is improving at the right lower quadrant. Son is at bedside. He had at least 5 bowel movements today and documented. He is avoiding cold beverages due to abdominal cramps. ROS: No fevers or chills. No new chest pain. No productive sputum PHYSICAL EXAM: VITAL SIGNS: Reviewed CONSTITUTIONAL: Well developed and in no acute distress. EYES: Conjuctivae without sclera icterus. Extraocular movements grossly intact. HEAD, EARS, NOSE, THROAT: Moist buccal mucosa. Head is atraumatic, normocephalic. Hears conversational speech. No nasal drainage. NECK: No gross thyroidomegaly. No jugular venous distention. RESPIRATORY: Non-labored respirations and equal bilateral excursions. CARDIOVASCULAR: Palpable 2+ radial pulses. ABDOMEN: No peritonitis. MUSCULOSKELETAL: No gross deformity of the lower extremities noted. No clubbing. No cyanosis. SKIN: Good skin turgor. Well perfused. NEUROLOGIC: Cranial nerves II through XII grossly intact. No focal or lateralizing signs. PSYCH: Appropriate affect. Alert and oriented to person, place and time. CLINICAL LABS: Reviewed. STUDIES: AXR independently reviewed with small bowel dilation. No gas in rectum. This is my independent interpretation. ASSESSMENT: 1. Small bowel obstruction metastatic cancer PLAN: 1. He is having more bowel movements following his abdominal xray this morning. 2. Recommend small bowel follow through for diagnostic assessment. 3. Continue full liquid diet. Objective - Vital Signs Vital signs: Vital Signs Temp 97.9 F 11/20/20 14:00 Pulse 63 11/20/20 14:00 Resp 16 11/20/20 14:00 BP 115/54 11/20/20 14:00 Pulse Ox 97 11/20/20 14:00 Intake & Output 11/20/20 11/20/20 11/21/20 06:59 18:59 06:59 Other: # Voids 3 # Bowel Movements 0 5 - Labs CBC & Chem 7: 11/20/20 10:31 11/20/20 10:31 Labs: Abnormal Lab Results - Last 24 Hours (Table) 11/20/20 11/20/20 Range/Units 10:31 10:31 RBC 2.62 L (4.30-5.90) m/uL Hgb 8.7 L (13.0-17.5) gm/dL Hct 26.1 L (39.0-53.0) % RDW 19.2 H (11.5-15.5) % Lymphocytes # (Manual) 0.41 L (1.0-4.8) k/uL Metamyelocytes # (Man) 0.69 H (0) k/uL Myelocytes # (Manual) 0.28 H (0) k/uL Promyelocytes # (Man) 0.07 H (0) k/uL Nucleated RBCs 3 H (0-0) /100 WBC Chloride 108 H (98-107) mmol/L BUN 8 L (9-20) mg/dL Creatinine 0.45 L (0.66-1.25) mg/dL Glucose 113 H (74-99) mg/dL Alkaline Phosphatase 289 H (38-126) U/L Total Protein 5.9 L (6.3-8.2) g/dL
[2020-11-20] MEDS: TAMSULOSIN 0.4 MG CAP.ER.24H PO SCH (20:20)
[2020-11-20] MEDS: LACTATED RINGERS 1,000 ML IV SCH (20:21)
[2020-11-21] MEDS: LACTATED RINGERS 1,000 ML IV SCH ×2 (01:57→11:57)
[2020-11-21] MEDS: APIXABAN 5 MG TAB PO SCH ×2 (07:37→21:14)
[2020-11-21] MEDS: METOPROLOL TARTRATE 12.5 MG TAB PO SCH ×2 (07:37→21:14)
[2020-11-21] MEDS: CYANOCOBALAMIN 500 MCG TAB PO SCH (07:38)
[2020-11-21] MEDS: DICYCLOMINE 10 MG CAP PO SCH ×3 (07:38→21:14)
[2020-11-21] MEDS: ISOSORBIDE MONONITRATE ER 30 MG TAB.ER.24H PO SCH (07:38)
[2020-11-21] MEDS: PANTOPRAZOLE 40 MG TABLET PO SCH (07:38)
--- NOTE | 2020-11-21 12:23 | P.PN ---
Subjective Progress Note Date: 11/21/20 Objective - Vital Signs Vital signs: Vital Signs Temp 97.5 F L 11/21/20 08:00 Pulse 64 11/21/20 08:00 Resp 16 11/21/20 08:00 BP 122/59 11/21/20 08:00 Pulse Ox 98 11/21/20 08:00 Intake & Output 11/20/20 11/21/20 11/21/20 18:59 06:59 18:59 Other: # Bowel Movements 5 - Exam - Constitutional General appearance: cooperative, no acute distress - EENT Eyes: EOMI ENT: hard of hearing, NA/AT - Neck Neck: normal ROM - Respiratory Respiratory: bilateral: diminished - Cardiovascular Rhythm: irregularly irregular - Gastrointestinal General gastrointestinal: distended, soft - Integumentary Integumentary: pale - Neurologic Neurologic: CNII-XII intact - Musculoskeletal Musculoskeletal: generalized weakness - Psychiatric Psychiatric: A&O x's 3, appropriate affect, intact judgment & insight - Labs CBC & Chem 7: 11/23/20 05:37 11/23/20 05:37 Assessment and Plan (1) Prostate cancer metastatic to bone Status: Acute Code(s): C61 - MALIGNANT NEOPLASM OF PROSTATE; C79.51 - SECONDARY MALIGNANT NEOPLASM OF BONE SNOMED Code(s): 239873119 (2) Normochromic anemia Status: Acute Code(s): D64.9 - ANEMIA, UNSPECIFIED SNOMED Code(s): 53524788 (3) Leukopenia Status: Acute Code(s): D72.819 - DECREASED WHITE BLOOD CELL COUNT, UNSPECIFIED SNOMED Code(s): 09956447 (4) Small bowel obstruction Status: Acute Code(s): K56.609 - UNSP INTESTNL OBST, UNSP TO PARTIAL VERSUS COMPLETE OBST SNOMED Code(s): 660925297 Plan: Assessment and Recommendations: Cytopenias: - Likely secondary to metastatic disease to bone - No additional Iron needed at this time, appears to be related to progressiv bone/bone marrow metastatic disease - Continue monitoring CBC Small Bowel Obstruction versus Ileus: - Bowel rest per General surgery and continued monitoring Metastatic Prostate Cancer to Bone: - Patient has refused treatment at this time - Status post radiation therapy palliative for pain management As far as prostate cancer patient has refused any further management or care related to the cancer. They have agreed with palliaitive care managment and eventually hospice care. Hospitalization regarding acute SBO unknown if related to worsening prostate cancer, if so intervention without further systemic treatment may pose greater risk than benefit of overall goal of comfort.Discussed with patient and . Await Surg and family decision. Please contact us if any assistance is needed with palliaitive care measures.
--- NOTE | 2020-11-21 13:35 | P.PN ---
Subjective Progress Note Date: 11/21/20 Principal diagnosis: Abdominal pain Patient over the weekend continue to have intermittent loose stools. Mild bloating at times. X-ray still showed dilated small bowel loops worrisome for obstruction. Patient started a small bowel follow-through today. So far at the 3 hour yaneth cecum is not visualized. Objective - Vital Signs Vital signs: Vital Signs Temp 97.5 F L 11/21/20 08:00 Pulse 64 11/21/20 08:00 Resp 16 11/21/20 08:00 BP 122/59 11/21/20 08:00 Pulse Ox 98 11/21/20 08:00 Intake & Output 11/20/20 11/21/20 11/21/20 18:59 06:59 18:59 Weight 82 kg Other: # Bowel Movements 5 - Exam Abdomen: Soft, nontender, minimal distention - Labs CBC & Chem 7: 11/20/20 10:31 11/20/20 10:31 Assessment and Plan (1) Abdominal pain Narrative/Plan: Agree with plans for small bowel series that was ordered. Spoke with radiology. Await final reading. Current Visit: Yes Status: Acute Code(s): R10.9 - UNSPECIFIED ABDOMINAL PAIN SNOMED Code(s): 55760391
--- NOTE | 2020-11-21 15:16 | P.PN ---
Progress Note - Text Progress Note Date: 11/21/20 Chief Complaint: Abdominal pain This is a pleasant 84-year-old patient who follows with Dr. Germaine Shirley. Oncologist Dr. Law. Radiation oncologist Dr. Jeremias Tavarez. Patient was diagnosed posterior 3 years ago with prostate cancer. Patient did receive 2 courses of chemotherapy pills. Discontinued sometime ago. Of the cowboy finished [address] Tavarez. Was having lower back pain. Which is better. Patient has metastatic disease to the osseous structures. In the past patient's had: Possibly malignant polyp which had surgical treatment at the junction of the sigmoid colon and rectum. Ulcer received radiation treatment with some complications same. Had a baseline patient is bowel movement varies. Last week patient had some watery stools. For about one or 2 days. For last 2 days has had no bowel movement. Patient's abdomen is chronically distended. No nausea vomiting. No weight loss. Patient has motor extremity edema present intermittently. No shortness of breath. Patient is able to get around the house. No fever no chills no cough. Decrease appetite. Colostomy some abdominal pain. Abdominal x-ray and computed tomography scan of the ER does confirm small bowel obstruction. Patient's at the bedside. November 18: Patient had large bowel movement last night. Feeling better this morning. Seen by surgery. Diet advanced to full liquid. November 19: Had a small more movement today. Tolerating full liquid diet.. Slight abdominal discomfort. Abdominal x-ray still showing bowel obstruction. November 20: Intermittent abdominal pain. Some loose and formed stools. On full liquid diet. Ambulatory in the room. present. Discussed with the patient and . November 21: Had small bowel series earlier today. Passing barium. Some abdominal discomfort. Review of systems: Was done for constitutional, cardiovascular, GI, pulmonary. relevant finding as above Active Medications Acetaminophen (Acetaminophen Tab 325 Mg Tab) 650 mg PO Q4HR PRN PRN Reason: Fever and/ or Pain Apixaban (Apixaban 5 Mg Tab) 5 mg PO BID [facility]; Protocol Last Admin: 11/21/20 07:37 Dose: 5 mg Documented by: Cyanocobalamin (Cyanocobalamin 500 Mcg Tab) 1,000 mcg PO DAILY [facility] Last Admin: 11/21/20 07:38 Dose: 1,000 mcg Documented by: Dicyclomine HCl (Dicyclomine 10 Mg Cap) 10 mg PO TID [facility] Last Admin: 11/21/20 07:38 Dose: 10 mg Documented by: Lactated Ringer's (Lactated Ringers) 1,000 mls @ 75 mls/hr IV .[id number] [facility] Last Admin: 11/21/20 11:57 Dose: Not Given Documented by: Ibuprofen (Ibuprofen 600 Mg Tab) 600 mg PO Q6HR PRN PRN Reason: Pain Isosorbide Mononitrate (Isosorbide Mononitrate Er 30 Mg Tab.Er.24h) 30 mg PO DAILY [facility] Last Admin: 11/21/20 07:38 Dose: 30 mg Documented by: Metoprolol Tartrate (Metoprolol Tartrate 12.5 Mg Tab) 12.5 mg PO BID [facility] Last Admin: 11/21/20 07:37 Dose: 12.5 mg Documented by: Naloxone HCl (Naloxone 0.4 Mg/Ml 1 Ml Vial) 0.2 mg IV Q2M PRN PRN Reason: Opioid Reversal Ondansetron HCl (Ondansetron 4 Mg/2 Ml Vial) 4 mg IVP Q8HR PRN PRN Reason: Nausea And Vomiting Pantoprazole Sodium (Pantoprazole 40 Mg Tablet) 40 mg PO DAILY@0730 [facility] Last Admin: 11/21/20 07:38 Dose: 40 mg Documented by: Tamsulosin HCl (Tamsulosin 0.4 Mg Cap.Er.24h) 0.4 mg PO HS [facility] Last Admin: 11/20/20 20:20 Dose: 0.4 mg Documented by: Tramadol HCl (Tramadol 50 Mg Tab) 50 mg PO Q6HR PRN PRN Reason: Breakthrough Pain Last Admin: 11/20/20 08:25 Dose: 50 mg Documented by: Past medical history to include: metastatic prostate cancer treated with chemotherapeutic pills and radiation treatment, BPH, atrial fibrillation, GERD Social history: Retired [employer]. . Former smoker. Alcohol rarely. Family history: Reviewed, noncontributory to presentation Physical examination: VITAL SIGNS: 98, 73, 16, 1 33 x 61, 98% room air GENERAL: Sitting up, awake, comfortable EYES: Pupils equal. Conjunctiva normal. HEENT: External appearance of nose and ears normal, oral cavity dry mucous membranes. NECK: JVD not raised; masses not palpable. HEART: First and second heart sounds are normal; no edema. LUNGS: Respiratory rate normal; decreased breath sounds. ABDOMEN: Soft, mild distention mildly tender, liver spleen not palpable, no masses palpable. PSYCH: Alert and oriented x3; mood and affect normal. MUSCULAR skeletal: Evidence of OA INVESTIGATIONS, reviewed in the clinical context: November 20: WBC 6.9 hemoglobin 8.7 potassium 3.9 creatinine 0.456. Abdominal x- ray: Dilated small bowel loops with some air-fluid levels. Possible improvement November 19: WBC 4.4 hemoglobin 7.2 potassium 3.5 creatinine 0.4. Abdominal x- ray: Dilated small bowel loops with air-fluid levels November 18: WBC 3.9 hemoglobin 8.8 platelets 257 potassium 3.8 creatinine 0.42. Abdominal x-ray: Dilated small bowel loops with air-fluid levels. WBC 2.8 hemoglobin 9.5 platelets 266 potassium 4.1 creatinine 0.48 glucose 103 alkaline phosphatase 275 amylase less than 30 lipase 13 UA positive for ketones 2+ EKG tracing personally reviewed by me-atrial fibrillation, rate 65 Chest x-ray films personally reviewed by me: Hyperinflation. No obvious infiltrate KUB films personally reviewed by me: Dilated small bowel with air-fluid level Computed tomography scan abdomen and pelvis with contrast: Gallbladder mildly hydropic 4.4 cm, atrophic pancreas, questionable pancreatic head lesion, numerous dilated fluid-filled small bowel loops mid and lower abdomen up to 3.4 cm with a transition point. Distal ileum and colon are collapsed. Sigmoid diverticulosis. Mild ascites. DJD. Diffuse sclerosis. Assessment and plan: -Acute distal small bowel ileus : Patient been having bowel movements. Also tolerating some diet. Small bowel barium series today. Passing barium -Metastatic prostate cancer to the bones. Patient has received chemotherapeutic pills in the past. Palliative radiation treatment recently. Patient has declined further treatment per oncology -Persistent atrial fibrillation, rate controlled eliquis. Telemetry. Lopressor 12.5 by mouth twice a day -BPH Flomax 0.4 mg daily at bedtime -GERD Omeprazole 20 mg daily -Bony pain due to metastatic disease Percocet 10 every 6 when necessary Continue current treatment plan. Results of barium studies spending. Choices rather limited as patient is having bowel movements. Prognosis guarded.
--- NOTE | 2020-11-21 16:02 | FL ---
EXAMINATION TYPE: FL UGI w small bowel DATE OF EXAM: 11/21/2020 2:52 PM COMPARISON: NONE CLINICAL HISTORY: bowel obstruction Preliminary film of the abdomen reveals no definite abnormality. Upper GI examination was performed u tilizing the air contrast technique. Barium and effervescent crystals were swallowed without difficu lty or delay. Esophageal peristalsis and motility are within normal limits. There is no evidence fo r hiatal hernia or esophagitis. The stomach has a normal size, shape and position. No gastric fillin g defects are seen. No gastric ulcer craters are seen. The duodenal bulb and sweep appear to be bossman ssly unremarkable without evidence for filling defect or ulcer crater. Small bowel follow through is performed with transit time of approximately 5 hours. There are dilated loops of small bowel noted measuring up to 4.2 cm. Zone of transition is difficult to elucidate. IMPRESSION: Partial small bowel obstruction likely in the region of the right hemiabdomen/ileal loops .
[2020-11-21] MEDS: TAMSULOSIN 0.4 MG CAP.ER.24H PO SCH (21:14)
[2020-11-22] MEDS: LACTATED RINGERS 1,000 ML IV SCH ×3 (01:41→21:57)
[2020-11-22] MEDS: traMADol 50 MG TAB PO PRN ×2 (05:59→19:41)
[2020-11-22 06:06] LABS: Methylmalonic Acid 0.11 umol/L (<0.40)
[2020-11-22] MEDS: APIXABAN 5 MG TAB PO SCH ×2 (07:28→19:42)
[2020-11-22] MEDS: CYANOCOBALAMIN 500 MCG TAB PO SCH (08:20)
[2020-11-22] MEDS: ISOSORBIDE MONONITRATE ER 30 MG TAB.ER.24H PO SCH (08:31)
[2020-11-22] MEDS: PANTOPRAZOLE 40 MG TABLET PO SCH (08:31)
[2020-11-22] MEDS: METOPROLOL TARTRATE 12.5 MG TAB PO SCH ×2 (08:31→19:41)
[2020-11-22] MEDS: DICYCLOMINE 10 MG CAP PO SCH ×3 (08:35→21:57)
[2020-11-22] MEDS ORDERED: IV FLUID CONTINUATION 1,000 ML IV ONE (15:07)
[2020-11-22] MEDS ORDERED: NEOSTIGMINE 1 MG/ML 10 ML VIAL ONE (15:45)
[2020-11-22] MEDS ORDERED: SUCCINYLCHOLINE CHLORIDE 100 MG/5 ML SYR IV ONE (15:45)
[2020-11-22] MEDS ORDERED: LIDOCAINE 1% INJ 10MG/ML (20 ML MDV) ONE (15:45)
[2020-11-22] MEDS ORDERED: KETAMINE 10 MG/ML 20 ML VIAL ONE (15:45)
[2020-11-22] MEDS ORDERED: fentaNYL (PF) 50 MCG/ML 2 ML AMP ONE (15:45)
[2020-11-22] MEDS ORDERED: GLYCOPYRROLATE 0.2 MG/ML 2 ML VIAL ONE (15:45)
[2020-11-22] MEDS ORDERED: PROPOFOL 10 MG/ML 20 ML VIAL IV ONE (15:45)
[2020-11-22] MEDS ORDERED: ROCURONIUM 10 MG/ML (5 ML VIAL) IV ONE (15:45)
--- NOTE | 2020-11-22 15:51 | P.PN ---
Progress Note - Text Progress Note Date: 11/22/20 Chief Complaint: Abdominal pain This is a pleasant 84-year-old patient who follows with Dr. Germaine Shirley. Oncologist Dr. Law. Radiation oncologist Dr. Jeremias Tavarez. Patient was diagnosed posterior 3 years ago with prostate cancer. Patient did receive 2 courses of chemotherapy pills. Discontinued sometime ago. Of the cowboy finished [address] Tavarez. Was having lower back pain. Which is better. Patient has metastatic disease to the osseous structures. In the past patient's had: Possibly malignant polyp which had surgical treatment at the junction of the sigmoid colon and rectum. Ulcer received radiation treatment with some complications same. Had a baseline patient is bowel movement varies. Last week patient had some watery stools. For about one or 2 days. For last 2 days has had no bowel movement. Patient's abdomen is chronically distended. No nausea vomiting. No weight loss. Patient has motor extremity edema present intermittently. No shortness of breath. Patient is able to get around the house. No fever no chills no cough. Decrease appetite. Colostomy some abdominal pain. Abdominal x-ray and computed tomography scan of the ER does confirm small bowel obstruction. Patient's at the bedside. November 18: Patient had large bowel movement last night. Feeling better this morning. Seen by surgery. Diet advanced to full liquid. November 19: Had a small more movement today. Tolerating full liquid diet.. Slight abdominal discomfort. Abdominal x-ray still showing bowel obstruction. November 20: Intermittent abdominal pain. Some loose and formed stools. On full liquid diet. Ambulatory in the room. present. Discussed with the patient and . November 21: Had small bowel series earlier today. Passing barium. Some abdominal discomfort. November 22: Small bowel series again suggestive of partial obstruction. Decision made for Dr. Arenas to proceed for surgery this afternoon. Laying in bed. No new issues. Discussed with the patient and . Review of systems: Was done for constitutional, cardiovascular, GI, pulmonary. relevant finding as above Active Medications Acetaminophen (Acetaminophen Tab 325 Mg Tab) 650 mg PO Q4HR PRN PRN Reason: Fever and/ or Pain Apixaban (Apixaban 5 Mg Tab) 5 mg PO BID [facility]; Protocol Last Admin: 11/22/20 07:28 Dose: Not Given Documented by: Cyanocobalamin (Cyanocobalamin 500 Mcg Tab) 1,000 mcg PO DAILY [facility] Last Admin: 11/22/20 08:20 Dose: Not Given Documented by: Dicyclomine HCl (Dicyclomine 10 Mg Cap) 10 mg PO TID [facility] Last Admin: 11/22/20 14:53 Dose: Not Given Documented by: Lactated Ringer's (Lactated Ringers) 1,000 mls @ 75 mls/hr IV .[id number] [facility] Last Admin: 11/22/20 12:21 Dose: 75 mls/hr Documented by: Cefazolin Sodium 2 gm/ Sodium (Chloride) 50 mls @ 100 mls/hr IVPB ONCE ONE Stop: 11/22/20 16:12 Ibuprofen (Ibuprofen 600 Mg Tab) 600 mg PO Q6HR PRN PRN Reason: Pain Isosorbide Mononitrate (Isosorbide Mononitrate Er 30 Mg Tab.Er.24h) 30 mg PO DAILY [facility] Last Admin: 11/22/20 08:31 Dose: 30 mg Documented by: Metoprolol Tartrate (Metoprolol Tartrate 12.5 Mg Tab) 12.5 mg PO BID [facility] Last Admin: 11/22/20 08:31 Dose: 12.5 mg Documented by: Naloxone HCl (Naloxone 0.4 Mg/Ml 1 Ml Vial) 0.2 mg IV Q2M PRN PRN Reason: Opioid Reversal Ondansetron HCl (Ondansetron 4 Mg/2 Ml Vial) 4 mg IVP Q8HR PRN PRN Reason: Nausea And Vomiting Pantoprazole Sodium (Pantoprazole 40 Mg Tablet) 40 mg PO DAILY@0730 [facility] Last Admin: 11/22/20 08:31 Dose: 40 mg Documented by: Tamsulosin HCl (Tamsulosin 0.4 Mg Cap.Er.24h) 0.4 mg PO HS [facility] Last Admin: 11/21/20 21:14 Dose: 0.4 mg Documented by: Tramadol HCl (Tramadol 50 Mg Tab) 50 mg PO Q6HR PRN PRN Reason: Breakthrough Pain Last Admin: 11/22/20 05:59 Dose: 50 mg Documented by: Past medical history to include: metastatic prostate cancer treated with chemotherapeutic pills and radiation treatment, BPH, atrial fibrillation, GERD Social history: Retired [employer]. . Former smoker. Alcohol rarely. Family history: Reviewed, noncontributory to presentation Physical examination: VITAL SIGNS: 97.9, 80, 18, 129/65, 98% room air GENERAL: Laying in bed awake, comfortable EYES: Pupils equal. Conjunctiva normal. HEENT: External appearance of nose and ears normal, oral cavity dry mucous membranes. NECK: JVD not raised; masses not palpable. HEART: First and second heart sounds are normal; no edema. LUNGS: Respiratory rate normal; decreased breath sounds. ABDOMEN: Soft, mild distention mildly tender, liver spleen not palpable, no masses palpable. PSYCH: Alert and oriented x3; mood and affect normal. MUSCULAR skeletal: Evidence of OA INVESTIGATIONS, reviewed in the clinical context: November 20: WBC 6.9 hemoglobin 8.7 potassium 3.9 creatinine 0.456. Abdominal x- ray: Dilated small bowel loops with some air-fluid levels. Possible improvement November 19: WBC 4.4 hemoglobin 7.2 potassium 3.5 creatinine 0.4. Abdominal x- ray: Dilated small bowel loops with air-fluid levels November 18: WBC 3.9 hemoglobin 8.8 platelets 257 potassium 3.8 creatinine 0.42. Abdominal x-ray: Dilated small bowel loops with air-fluid levels. WBC 2.8 hemoglobin 9.5 platelets 266 potassium 4.1 creatinine 0.48 glucose 103 alkaline phosphatase 275 amylase less than 30 lipase 13 UA positive for ketones 2+ EKG tracing personally reviewed by me-atrial fibrillation, rate 65 Chest x-ray films personally reviewed by me: Hyperinflation. No obvious infiltrate KUB films personally reviewed by me: Dilated small bowel with air-fluid level Computed tomography scan abdomen and pelvis with contrast: Gallbladder mildly hydropic 4.4 cm, atrophic pancreas, questionable pancreatic head lesion, numerous dilated fluid-filled small bowel loops mid and lower abdomen up to 3.4 cm with a transition point. Distal ileum and colon are collapsed. Sigmoid diverticulosis. Mild ascites. DJD. Diffuse sclerosis. Assessment and plan: -Acute distal small bowel ileus : Slow to respond Patient been having bowel movements. Also tolerating some diet. Small bowel barium series : Showing partial obstruction. Passing barium. Pending surgery today. -Metastatic prostate cancer to the bones. Patient has received chemotherapeutic pills in the past. Palliative radiation treatment recently. Patient has declined further treatment per oncology -Persistent atrial fibrillation, rate controlled eliquis. Telemetry. Lopressor 12.5 by mouth twice a day -BPH Flomax 0.4 mg daily at bedtime -GERD Omeprazole 20 mg daily -Bony pain due to metastatic disease Percocet 10 every 6 when necessary Continue current treatment plan. Patient nothing by mouth for surgery later this afternoon. Discussed with the patient and .
--- NOTE | 2020-11-22 15:52 | P.PN ---
Progress Note - Text Progress Note Date: 11/22/20 Patient seen today and small bowel series reviewed yesterday evening with the patient and his . Clinical scenario again discussed today. Patient continues to have vague abdominal discomfort and bloating. He did have multiple loose stools that were whitish in color after yesterday's small bowel follow- through. Films suggested distal small bowel obstruction. Options discussed. We'll proceed with diagnostic laparoscopy, possible laparotomy, possible bowel resection at this time. Risks of bleeding, infection, leak, abscess, recurrent obstruction, negative intraoperative findings, hernia, anesthesia related complications reviewed. Patient's eloquis was last given yesterday morning at 7:30 AM. The slight increased risk with bleeding as it pertains to the eloquis also discussed. Patient and his understand and wish to proceed.
[2020-11-22] MEDS ORDERED: BUPIVACAINE (PF) 0.25% 30 ML VIAL SQ ONE (16:24)
[2020-11-22] MEDS ORDERED: MORPHINE SULFATE 2 MG/ML SYRINGE IVP PRN (16:47)
--- NOTE | 2020-11-22 16:50 | P.OP ---
Date of Procedure: 11/22/20 Procedure(s) Performed: PREOPERATIVE DIAGNOSIS: Small bowel obstruction POSTOPERATIVE DIAGNOSIS: Ileus, abdominal adhesions PROCEDURE: Diagnostic laparoscopy with lysis of adhesions SURGEON: Pawan EBL: 2 mL ANESTHESIA: General COMPLICATIONS: None OPERATIVE PROCEDURE: The patient was brought and placed on the operating table in the supine position. The patient was placed under general anesthesia. The abdomen was prepped and draped in the usual sterile fashion. A small vertical infraumbilical incision was made. The fascia was retracted anteriorly with Guera forceps. The Veress needle was advanced into the peritoneal cavity. The saline drop test was normal. Insufflation took place to 15 mmHg. A 5 mm trocar was then placed. An additional 5 mm suprapubic trocar was placed under direct visualization as well in the left upper quadrant. An additional 5 mm trocar was also placed in the left upper quadrant. The camera was then switched to the left upper quadrant trocar site. The patient had some adhesions between the omentum and the umbilicus that were lysed using LigaSure. Some additional adhesions between the pericolonic fat in the left abdominal wall were noted which were not causing any difficulties. The patient's abdominal cavity was otherwise relatively free of any adhesions. A small amount of serous fluid was seen. The patient was placed in steep Trendelenburg. The ileocecal valve was identified. From that point we inspected the small bowel proximally until we reached the ligament of Treitz. No abnormalities were seen along the course of the small intestine. There were no adhesions to the patient's previous right inguinal hernia repair. Metallic clips and preperitoneal mesh was visualized. There may have been a small recurrence medially in the direct space. The visualized colon liver and stomach appeared normal. There were no implants to suggest metastatic disease. At that point the trochars were removed. The pneumoperitoneum was evacuated. The 3 incisions were closed using 4-0 Monocryl sutures. Skin glue was then applied. DISPOSITION: Stable to recovery room
[2020-11-22] MEDS: TAMSULOSIN 0.4 MG CAP.ER.24H PO SCH (19:42)
[2020-11-23 06:21] LABS: African American GFR (CKD) >90 (>60 ml/min/1.73 sqM); Anion Gap 10 mmol/L; Blood Urea Nitrogen 11 mg/dL (9-20); Calcium 7.2 mg/dL (8.4-10.2); Carbon Dioxide 20 mmol/L (22-30); Chloride 107 mmol/L (98-107); Glucose 72 mg/dL (74-99); Non-African American GFR(CKD) >90 (>60 ml/min/1.73 sqM); Potassium 3.1 mmol/L (3.5-5.1); Sodium 137 mmol/L (137-145)
[2020-11-23 06:44] LABS: Anisocytosis Slight; HCT 23.9 % (39.0-53.0); HGB 7.6 gm/dL (13.0-17.5); Hypochromasia Moderate; MCH 32.3 pg (25.0-35.0); MCV 101.1 fL (80.0-100.0); Macrocytosis Moderate; Platelet Count 182 k/uL (150-450); Poikilocytosis Slight; RBC 2.36 m/uL (4.30-5.90); RDW 18.7 % (11.5-15.5)
[2020-11-23] MEDS: traMADol 50 MG TAB PO PRN (07:23)
[2020-11-23] MEDS: ISOSORBIDE MONONITRATE ER 30 MG TAB.ER.24H PO SCH (07:23)
[2020-11-23] MEDS: DICYCLOMINE 10 MG CAP PO SCH (07:23)
[2020-11-23] MEDS: METOPROLOL TARTRATE 12.5 MG TAB PO SCH (07:23)
[2020-11-23] MEDS: PANTOPRAZOLE 40 MG TABLET PO SCH (07:23)
[2020-11-23] MEDS: APIXABAN 5 MG TAB PO SCH (07:23)
[2020-11-23] MEDS: CYANOCOBALAMIN 500 MCG TAB PO SCH (07:24)
[2020-11-23 08:13] VITALS: BP 103/57; PULSE 58; RESP 18; TEMP 97.6
[2020-11-23 10:24] LABS: Band Neutrophils % 7 %; Basophils # (M) 0.06 k/uL (0-0.2); Eosinophils # (M) 0.18 k/uL (0-0.7); Lymphocytes # (M) 1.14 k/uL (1.0-4.8); Metamyelocytes # (M) 0.24 k/uL (0); Metamyelocytes % 4 %; Monocytes # (M) 0.42 k/uL (0-1.0); Myelocytes % 5 %; Neutrophils % (M) 57 %; Nucleated Red Blood Cells 0 /100 WBC (0-0); Total Cells Counted 200
[2020-11-23 10:25] LABS: Tear Drop Cells Present
[2020-11-23] MEDS ORDERED: POTASSIUM CHLORIDE ER 20 MEQ TAB.ER PO STA (11:05)
--- NOTE | 2020-11-23 20:43 | P.DS ---
Providers Date of admission: 11/17/20 13:06 Expected date of discharge: 11/23/20 Attending physician: Diego Manzano Consults: 11/17/20 13:06 Consult Physician Routine Consulting Provider: Leandro Villalta Consult Reason/Comments: Small bowel obstruction Do you want consulting provider notified?: Yes 11/17/20 13:28 Consult Physician Routine Consulting Provider: Shane Daniels Consult Reason/Comments: Metastatic prostate cancer Do you want consulting provider notified?: Yes Primary care physician: Germaine Shirley [facility] Course: Chief Complaint: Abdominal pain This is a pleasant 84-year-old patient who follows with Dr. Germaine Shirley. Oncologist Dr. Law. Radiation oncologist Dr. Jeremias Tavarez. Patient was diagnosed posterior 3 years ago with prostate cancer. Patient did receive 2 courses of chemotherapy pills. Discontinued sometime ago. Of the cowboy finished [address] Tavarez. Was having lower back pain. Which is better. Patient has metastatic disease to the osseous structures. In the past patient's had: Possibly malignant polyp which had surgical treatment at the junction of the sigmoid colon and rectum. Ulcer received radiation treatment with some complications same. Had a baseline patient is bowel movement varies. Last week patient had some watery stools. For about one or 2 days. For last 2 days has had no bowel movement. Patient's abdomen is chronically distended. No nausea vomiting. No weight loss. Patient has motor extremity edema present intermittently. No shortness of breath. Patient is able to get around the house. No fever no chills no cough. Decrease appetite. Colostomy some abdominal pain. Abdominal x-ray and computed tomography scan of the ER does confirm small bowel obstruction. Patient's at the bedside. November 18: Patient had large bowel movement last night. Feeling better this morning. Seen by surgery. Diet advanced to full liquid. November 19: Had a small more movement today. Tolerating full liquid diet.. Slight abdominal discomfort. Abdominal x-ray still showing bowel obstruction. November 15: Intermittent abdominal pain. Some loose and formed stools. On full liquid diet. Ambulatory in the room. present. Discussed with the patient and . November 21: Had small bowel series earlier today. Passing barium. Some abdominal discomfort. November 22: Small bowel series again suggestive of partial obstruction. Decision made for Dr. Arenas to proceed for surgery this afternoon. Laying in bed. No new issues. Discussed with the patient and . November 23: Patient underwent exploratory laboratory by Dr. Arenas yesterday. Unremarkable. Results discussed with the patient. He does not report any further treatment for his prostate cancer. Metamucil added. Bentyl for when necessary for spasm. Told to avoid [place] possible. Discussed with the patient and the . Follow-up with radiation oncology and oncology Discussion and discharge planning more than 35 minutes Consultation: Dr. Daniels from oncology Dr. Arneas from general surgery Past medical history to include: metastatic prostate cancer treated with chemotherapeutic pills and radiation treatment, BPH, atrial fibrillation, GERD Social history: Retired [employer]. . Former smoker. Alcohol rarely. Family history: Reviewed, noncontributory to presentation Physical examination: VITAL SIGNS: 97.6, 58, 18, 103/57, 98% room air GENERAL: Sitting up, comfortable EYES: Pupils equal. Conjunctiva normal. HEENT: External appearance of nose and ears normal, oral cavity dry mucous membranes. NECK: JVD not raised; masses not palpable. HEART: First and second heart sounds are normal; no edema. LUNGS: Respiratory rate normal; decreased breath sounds. ABDOMEN: Soft, nontender, liver spleen not palpable, no masses palpable. PSYCH: Alert and oriented x3; mood and affect normal. MUSCULAR skeletal: Evidence of OA INVESTIGATIONS, reviewed in the clinical context: November 23: WBC 6 hemoglobin 7.6 platelets 182 creatinine 0.44 November 20: WBC 6.9 hemoglobin 8.7 potassium 3.9 creatinine 0.456. Abdominal x- ray: Dilated small bowel loops with some air-fluid levels. Possible improvement November 19: WBC 4.4 hemoglobin 7.2 potassium 3.5 creatinine 0.4. Abdominal x- ray: Dilated small bowel loops with air-fluid levels November 18: WBC 3.9 hemoglobin 8.8 platelets 257 potassium 3.8 creatinine 0.42. Abdominal x-ray: Dilated small bowel loops with air-fluid levels. WBC 2.8 hemoglobin 9.5 platelets 266 potassium 4.1 creatinine 0.48 glucose 103 alkaline phosphatase 275 amylase less than 30 lipase 13 UA positive for ketones 2+ EKG tracing personally reviewed by me-atrial fibrillation, rate 65 Chest x-ray films personally reviewed by me: Hyperinflation. No obvious infiltrate KUB films personally reviewed by me: Dilated small bowel with air-fluid level Computed tomography scan abdomen and pelvis with contrast: Gallbladder mildly hydropic 4.4 cm, atrophic pancreas, questionable pancreatic head lesion, numerous dilated fluid-filled small bowel loops mid and lower abdomen up to 3.4 cm with a transition point. Distal ileum and colon are collapsed. Sigmoid diverticulosis. Mild ascites. DJD. Diffuse sclerosis. Assessment and plan: -Partial distal small bowel ileus : Self improved Patient been having bowel movements. Also tolerating some diet. Small bowel barium series : Showing partial obstruction. Passing barium. Patient had exploratory laboratory: Unremarkable -Metastatic prostate cancer to the bones. Patient has received chemotherapeutic pills in the past. Palliative radiation treatment recently. Patient has declined further treatment per oncology -Persistent atrial fibrillation, rate controlled eliquis. Telemetry. Lopressor 12.5 by mouth twice a day -BPH Flomax 0.4 mg daily at bedtime -GERD Omeprazole 20 mg daily -Bony pain due to metastatic disease Percocet 10 every 6 when necessary -Bowel spasms Use Bentyl when necessary Disposition: Home Patient Condition at Discharge: Fair Plan - Discharge Summary Discharge Rx Participant: Yes New Discharge Prescriptions: New Dicyclomine [Bentyl] 10 mg PO TID PRN #30 cap PRN Reason: Spasms polyethylene glycoL 3350 [Miralax] 17 gm PO DAILY #30 packet Continue Tamsulosin HCl [Flomax] 0.4 mg PO HS Cyanocobalamin (Vitamin B-12) [Vitamin B-12] 1,000 mcg PO DAILY Omeprazole 20 mg PO DAILY Isosorbide Mononitrate ER [Imdur] 30 mg PO DAILY Loperamide HCl [Imodium A-D] 2 - 4 mg PO QID PRN PRN Reason: Diarrhea oxyCODONE-APAP 10-325MG [Percocet 10-325 mg] 1 tab PO Q6H PRN PRN Reason: Pain Metoprolol Tartrate [Lopressor] 12.5 mg PO BID Apixaban [Eliquis] 5 mg PO BID Discharge Medication List Cyanocobalamin (Vitamin B-12) [Vitamin B-12] 1,000 mcg PO DAILY 12/23/18 [History] Tamsulosin HCl [Flomax] 0.4 mg PO HS 12/23/18 [History] Apixaban [Eliquis] 5 mg PO BID 11/17/20 [History] Isosorbide Mononitrate ER [Imdur] 30 mg PO DAILY 11/17/20 [History] Loperamide HCl [Imodium A-D] 2 - 4 mg PO QID PRN 11/17/20 [History] Metoprolol Tartrate [Lopressor] 12.5 mg PO BID 11/17/20 [History] Omeprazole 20 mg PO DAILY 11/17/20 [History] oxyCODONE-APAP 10-325MG [Percocet 10-325 mg] 1 tab PO Q6H PRN 11/17/20 [History] Dicyclomine [Bentyl] 10 mg PO TID PRN #30 cap 11/23/20 [Rx] polyethylene glycoL 3350 [Miralax] 17 gm PO DAILY #30 packet 11/23/20 [Rx] Follow up Appointment(s)/Referral(s): Leandro Villalta MD [Medical Doctor] - 1 Week (post op follow up ) Germaine Shirley MD [Primary Care Provider] - 1-2 days [facility] [NON-STAFF] - Patient Instructions/Handouts: Bowel Obstruction (DC) Discharge Disposition: HOME SELF-CARE
== END 2020-11-23 11:44 | disposition home or self-care (01) | DRG 336 ==
LOC: EC 09:12 → 4SSUR 13:06
PROVIDERS: ADMIT Hospitalist; ATTEND Hospitalist
PROC: 0DNW4ZZ Release Peritoneum, Percutaneous Endoscopic Approach (ICD-10-PCS; principal; 2020-11-22 07:30)
DX: K56.609 Unspecified intestinal obstruction, unspecified as to partial versus complete obstruction (principal); C79.51 Secondary malignant neoplasm of bone; I48.19 Other persistent atrial fibrillation; E86.0 Dehydration; M54.5 Low back pain; C61 Malignant neoplasm of prostate; G89.3 Neoplasm related pain (acute) (chronic); K21.9 Gastro-esophageal reflux disease without esophagitis; N40.0 Benign prostatic hyperplasia without lower urinary tract symptoms; R62.7 Adult failure to thrive; Z79.01 Long term (current) use of anticoagulants; Z79.899 Other long term (current) drug therapy; Z82.49 Family history of ischemic heart disease and other diseases of the circulatory system; Z85.048 Personal history of other malignant neoplasm of rectum, rectosigmoid junction, and anus; Z85.46 Personal history of malignant neoplasm of prostate; Z87.891 Personal history of nicotine dependence; Z93.3 Colostomy status; D75.9 Disease of blood and blood-forming organs, unspecified; K56.7 Ileus, unspecified; K66.0 Peritoneal adhesions (postprocedural) (postinfection); D72.819 Decreased white blood cell count, unspecified; D64.9 Anemia, unspecified
CPT/HCPCS: 36415; 71046; 74018; 74019; 74177; 74240; 74248; 80048; 80053; 81003; 82150; 82550; 82607; 82728; 82746; 83540; 83550; 83605; 83690; 83921; 84153; 84484; 85025; 86850; 86900; 86901; 87324; 93005; 99285

== ENCOUNTER → 2021-03-20 | Outpatient (CLI) | payer MEDICARE, BC ==
--- NOTE | 2021-03-20 15:46 | NM ---
EXAMINATION TYPE: NM bone scan whole body DATE OF EXAM: 03/20/2021 COMPARISON: CT 11/17/2020 HISTORY: C79.51 Z85.048 R97.21 Z92.3 Z87.891 C61 Delayed whole-body scanning was performed following the injection of 23.7 mCi Tc 99m MDP. Images acq uired 4 hours post injection. FINDINGS: There is abnormal uptake involving the proximal humerus bilaterally, proximal femurs, diaphyseal femu rs, proximal tibias, both proximal and distal upper extremities. Retained urine noted within the left kidney suggests possible partial obstruction on the left as compared to the right. There may be abno rmal uptake within the sternum and clavicles, is abnormal uptake within the pelvis on the left. Heter ogeneous mild uptake noted within the sacrum and likely within the lumbar spine, thoracic spine and p ossibly ribs. IMPRESSION: Diffuse osteoblastic metastatic disease.
== END | disposition home or self-care (01) ==
LOC: RADNMMAIN 09:41
PROVIDERS: ATTEND Radiology Radiation Oncology
DX: C79.51 Secondary malignant neoplasm of bone (principal); C61 Malignant neoplasm of prostate; Z87.891 Personal history of nicotine dependence
CPT/HCPCS: 78306; A9503

== ENCOUNTER → 2021-03-22 | Outpatient (CLI) | payer MEDICARE, BC ==
[2021-03-22 13:18] LABS: African American GFR (CKD) >90 (>60 ml/min/1.73 sqM); Blood Urea Nitrogen 15 mg/dL (9-20); Non-African American GFR(CKD) >90 (>60 ml/min/1.73 sqM)
--- NOTE | 2021-03-22 15:54 | CT ---
EXAMINATION TYPE: CT ChestAbdPelvis w con DATE OF EXAM: 03/22/2021 COMPARISON: Prior CT April 29, 2020. Prior whole body bone scan 2 days ago. HISTORY: History of prostrate and rectosigmoid cancer. History of metastatic bone cancer with elevati ng PSA. CT DLP: 926.2 mGycm. Automated Exposure Control for Dose Reduction was Utilized. CONTRAST: CT scan of the thorax, abdomen and pelvis is performed with oral and with IV Contrast, patient inject ed with 100 mL of Isovue 300. FINDINGS: LUNGS: Mild biapical pleural/parenchymal scarring redemonstrated. New small to tiny left pleural effu deysi. New moderate sized right pleural effusion with associated compressive atelectasis inferiorly. More rounded or masslike atelectasis right infrahilar level favors atelectasis. No pneumothorax seen bilaterally. MEDIASTINUM: There are no new greater than 1 cm hilar or mediastinal lymph nodes. No pericardial ef fusion is seen. Mild cardiomegaly with moderate to severe three-vessel coronary artery calcification and biatrial dilatation right greater than left redemonstrated. LIVER/GB: Scattered small hypodense lesions consistent with simple intrahepatic thin-walled cysts red emonstrated. No significant interval change. PANCREAS: Severe generalized fat replaced atrophy redemonstrated greatest at pancreatic head level. SPLEEN: No significant abnormality is seen. ADRENALS: No significant abnormality is seen. KIDNEYS: Symmetric cortical medullary uptake, there is right-sided excretion without hydronephrosis. There is nonvisualized left-sided excretion on current study with no moderate left-sided hydronephros is. Bladder poorly distended and suboptimally evaluated. Suspicious wall thickening remains present. Suspicious new soft tissue 7 mm nodularity near left UVJ axial image 112 is now present. BOWEL: Oral contrast does not reach level of the terminal ileum making evaluation of distal bowel sub optimal. No suspicious small or large bowel dilatation. Appendix remains normal in size right lower q uadrant. Diverticula throughout the sigmoid colon redemonstrated. New mild fluid and fat stranding th roughout the pelvis. New Soft tissues thickening and/or fluid presacral space posterior to rectum on axial image 114 for refer ence. Prostate gland: Prostate gland remains within normal limits in size. Occasional calcification redemon strated. LYMPH NODES: No new greater than 1cm abdominal or pelvic lymph nodes are appreciated. OSSEOUS STRUCTURES: Innumerable diffuse osseous sclerotic metastatic disease redemonstrated correlati ng with most recent bone scan. Interval progression from most recent CT noted. OTHER: Surgical clips right groin region redemonstrated. Moderate 2 severe plaque of the abdominal ao rta extends into branch vessels. Abnormal narrowing at origin of celiac artery sagittal image 63 for reference is redemonstrated. IMPRESSION: Continued osseous metastatic disease progression. New moderate left-sided hydronephrosis with delayed excretion. Cannot exclude obstructing lesion at left UVJ possible neoplastic progression . Consider cystoscopy evaluation. Mild fat stranding throughout the pelvis could reflect product of r adiation treatment. Correlate clinically. New moderate-sized right pleural effusion. New small to tin y left pleural effusion.
== END | disposition home or self-care (01) ==
LOC: RADCTMAIN 11:39
PROVIDERS: ATTEND Radiology Radiation Oncology
DX: C79.51 Secondary malignant neoplasm of bone (principal); C61 Malignant neoplasm of prostate; Z85.048 Personal history of other malignant neoplasm of rectum, rectosigmoid junction, and anus; J90 Pleural effusion, not elsewhere classified
CPT/HCPCS: 82565; 84520; 71260; 74177; 36415; Q9967